=== PATIENT | male | born 1950 | race Caucasian/White ===

== ENCOUNTER → 2018-12-28 09:21 | Outpatient (REF) | payer MEDICARE, SELFPAY | LOC: LAB 09:21 | PROVIDERS: Visit Provider Family Medicine | DX: N39.0 Urinary tract infection, site not specified (principal) | CPT/HCPCS: 87086 ==

== ENCOUNTER → 2019-07-03 12:00 | Outpatient (CLI) | payer MEDICARE, SELFPAY | PROVIDERS: Visit Provider Urology | DX: Z12.5 Encounter for screening for malignant neoplasm of prostate (principal); R82.81 Pyuria | CPT/HCPCS: 36415; 87086; 87088; G0103 ==

== ENCOUNTER → 2019-07-03 14:23 | Outpatient (CLI) | payer MEDICARE, SELFPAY | PROVIDERS: Visit Provider Urology | DX: R82.81 Pyuria (principal); Z12.5 Encounter for screening for malignant neoplasm of prostate | CPT/HCPCS: 36415; 87086; 87088; G0103 ==

== ENCOUNTER 2020-02-10 11:04 | Inpatient (IN) | payer MEDICARE, SELFPAY ==
[2020-02-10] VITALS (12 sets, daily range): BP systolic 105–145; BP diastolic 49–98; PULSE 70–136; RESP 16–24; TEMP 37.2–40.7; O2SAT 90–98; BMI 48.7; BMI 44.1
--- NOTE | 2020-02-10 11:08 | XR_ITS ---
PROCEDURE: XR CHEST PORTABLE CLINICAL HISTORY: syncope COMPARISON: No exams were available for comparison FINDINGS: The cardiomediastinal silhouette and pulmonary vascularity are within normal limits. The lungs are clear without infiltrates, suspicious nodules, or pleural effusions. No acute bony abnormalities. IMPRESSION: No acute findings. Dictated by: Alex Diez MD 02/10/2020 13:00 Electronically signed by Alex Diez MD in [place] 02/10/2020 13:00
--- NOTE | 2020-02-10 11:15 | ECG_ITS ---
APPROVED REPORT Exam: Resting ECG HR:117 bpm ECG Measurements Heart Rate 117 AXES MS 180 P 55 QRSd 88 QRS 70 QT 310 T 78 QTc 432 <Conclusion> Sinus tachycardia Otherwise normal ECG Electronically signed by : Lenard Hahn, 02/14/2020 08:13:01
--- NOTE | 2020-02-10 11:25 | HMH.EDGENADL ---
ED Disposition Clinical Impression: Dehydration, TITO (acute kidney injury), Debility, unspecified, Morbid obesity Fall Qualifiers: Encounter type: initial encounter Qualified Code(s): W19.XXXA - Unspecified fall, initial encounter UTI (urinary tract infection) Qualifiers: Urinary tract infection type: acute cystitis Hematuria presence: with hematuria Qualified Code(s): N30.01 - Acute cystitis with hematuria Disposition: Admitted As Inpatient Condition on Discharge: Fair Referrals: PCP,No [Non-Staff] - Time of Disposition: 14:46 - Critical Care Critical Care Time: No Attestation: On 02/10/20, the high probability of a clinically significant, sudden or life threatening deterioration of the following system(s) required my full and direct attention, intervention and personal management. The time I documented below is in addition to time spent performing reported procedures but includes the following listed in this critical care notation. Medical Decision Making - Medical Records Medical records reviewed: Yes: I reviewed the patient's medical records. - Gurinder Inquiry Pt receiving controlled substance: No Vital Signs: 02/10/20 11:20 02/10/20 11:37 02/10/20 13:14 Temperature 99.5 F Temperature Source Oral Pulse Rate [Radial] 112 H 120 H 70 Respiratory Rate 20 16 Blood Pressure [Right Arm] 126/69 141/87 H 142/75 H Blood Pressure Mean [Right Arm] 88 105 97 Blood Pressure Source [Right Arm] Automatic Cuff Automatic Cuff Automatic Cuff Blood Pressure Position [Right Arm] Sitting Sitting Sitting 02 Sat by Pulse Oximetry 96 98 98 Oxygen Delivery Method Room Air Room Air 02/10/20 14:15 02/10/20 14:32 Temperature Temperature Source Pulse Rate [Radial] 109 H 100 H Respiratory Rate Blood Pressure [Right Arm] 113/98 H 134/49 L Blood Pressure Mean [Right Arm] 103 77 Blood Pressure Source [Right Arm] Automatic Cuff Automatic Cuff Blood Pressure Position [Right Arm] Sitting Sitting 02 Sat by Pulse Oximetry 92 L 93 L Oxygen Delivery Method Room Air Room Air - Lab Data Lab Results 02/10/20 11:10: WBC 18.2 H, RBC 4.28 L, Hgb 12.6 L, Hct 36.8 L, MCV 86.0, MCH 29.5, MCHC 34.3, RDW 13.5, Plt Count 252, MPV 7.8, Neut % (Auto) 89.7 H, Lymph % (Auto) 5.7 L, [place] % (Auto) 4.2, Eos % (Auto) 0.3, Baso % (Auto) 0.1, Neut # (Auto) 16.3 H, Lymph # (Auto) 1.0, [place] # (Auto) 0.8, Eos # (Auto) 0.1, Baso # (Auto) 0.0, Total Counted 100, Neutrophils % (Manual) 92 H, Band Neutrophils % 1.0, Lymphocytes % (Manual) 4 L, Monocytes % (Manual) 3, Platelet Estimate Normal, RBC Morphology Normal 02/10/20 11:10: Sodium 133 L, Potassium 4.4, Chloride 94 L, Carbon Dioxide 27, Anion Gap 16.4 H, BUN 19, Creatinine 1.40 H, Estimated Creat Clear 60, Estimated GFR 51 L, Est GFR ( Amer) 61, Glucose 263 H, Calcium 8.5, Total Bilirubin 1.3, AST 31, ALT 28, Alkaline Phosphatase 104, Total Creatine Kinase 104, Troponin I 0.01, Total Protein 7.2, Albumin 3.6, Globulin 3.6 H, Albumin/Globulin Ratio 1.0 L, Lipase 24 02/10/20 14:09: Urine Color Yellow, Urine Appearance Clear, Urine pH 6.0, Ur Specific [place] >= 1.030, Urine Protein 2+, Urine Glucose (UA) Negative, Urine Ketones 1+, Urine Blood 2+, Urine Nitrate Negative, Urine Bilirubin Negative, Urine Urobilinogen 1.0, Ur Leukocyte Esterase Negative, Urine RBC 5-10, Urine WBC 5-10, Ur Squamous Epith Cells 5-10, Urine Bacteria 2+, Fine Granular Casts 3-5 02/10/20 14:09: Urine Creatinine 286 Result diagrams: 02/10/20 11:10 02/10/20 11:10 Orders (Tests/Meds): ED MEDICATIONS Generic Name Dose Route Start Last Admin Trade Name Freq PRN Reason Stop Dose Admin Ceftriaxone Sodium 2 gm/ 50 mls @ 100 mls/hr 02/10/20 14:45 Sodium Chloride IV 02/24/20 14:44 Q24H ONEL Protocol Discontinued Medications Generic Name Dose Route Start Last Admin Trade Name Freq PRN Reason Stop Dose Admin Famotidine 20 mg 02/10/20 12:01 02/10/20 12:12 Pepcid 20mg Tablet PO 02/10/20 12:0
[2020-02-10 11:26] LABS: Basophils % 0.1 % (0.1-2.0); Eosinophils # 0.1 K/mm3 (0.0-0.4); Eosinophils % 0.3 % (0.1-12.0); Hematocrit 36.8 % (42.0-52.0); Hemoglobin 12.6 g/dL (14.1-18.0); Lymphocytes % 5.7 % (10-50); Mean Corpuscular HGB Conc 34.3 g/dL (31.8-35.4); Mean Corpuscular Hemoglobin 29.5 pg (27.0-31.2); Mean Platelet Volume 7.8 fl (7.4-10.4); Monocytes # 0.8 K/mm3 (0.1-1.0); Monocytes % 4.2 % (1.7-9.3); Neutrophils # 16.3 K/mm3 (1.8-7.8); Neutrophils % 89.7 % (37.0-80.0); Platelet Count 252 K/mm3 (142-424); Red Blood Count 4.28 M/mm3 (4.60-6.20); Red Cell Distribution Width 13.5 % (11.5-17.5); White Blood Count 18.2 K/mm3 (4.8-10.8)
[2020-02-10 11:28] LABS: MANUAL DIFFERENTIAL MANUAL DIFFERENTIAL (MANUAL DIFF)
[2020-02-10 11:36] LABS: Chloride 94 mmol/L (98-107); Potassium 4.4 mmoL/L (3.5-5.1); Sodium 133 mmol/L (136-145)
[2020-02-10 11:39] LABS: Alanine Aminotransferase 28 U/L (12-78); Alkaline Phosphatase 104 U/L (38-126); Anion Gap 16.4 mEq/L (5-15); Aspartate Amino Transferase 31 U/L (17-59); Bilirubin,Total 1.3 mg/dl (0.2-1.3); Blood Urea Nitrogen 19 mg/dl (9-20); Calcium 8.5 mg/dl (8.4-10.2); Carbon Dioxide 27 mmol/L (22.0-30.0); Creatine Kinase 104 U/L (55-170); Creatinine Clearance Estimated 60 mL/min (50-200); Estimated Glomerular Filt Rate 51 ml/min (>60); GFR (African American) 61 ML/MIN (>60); Glucose 263 mg/dl (74-100); Lipase 24 U/L (23-300)
[2020-02-10 11:40] LABS: Albumin Level 3.6 g/dl (3.5-5.0); Globulin 3.6 g/dL (1.3-3.2); Total Protein,Serum 7.2 g/dl (6.3-8.2)
[2020-02-10 11:46] LABS: Lymphocytes % 4 % (10-50); Monocytes % 3 % (2-9); Neutrophils % 92 % (42-76); Total Cells Counted 100
[2020-02-10 11:47] LABS: Platelet Estimate Normal; RBC Morphology Normal
[2020-02-10 11:52] LABS: Troponin I 0.01 ng/ml (0.00-0.034)
--- NOTE | 2020-02-10 12:26 | PC.NURSE ---
Pt keeps removing his own v/s monitors. Will continue to monitor as pt allows.
[2020-02-10 14:14] LABS: Microscopic, Urine URINE MICROSCOPIC (MICROSCOPIC)
[2020-02-10 14:19] LABS: Appearance,Urine CLEAR (Clear); Blood, Urine 2+ (Negative); Color,Urine YELLOW (Yellow); Glucose,Urine (UA) Negative (Negative); Ketones,Urine 1+ (Negative); Leukocyte Esterase,Urine Negative (Negative); Nitrate,Urine Negative (Negative); Protein,Urine 2+ (Negative); Specific Gravity, Urine >= 1.030 (1.005-1.030)
[2020-02-10 14:23] LABS: Bilirubin,Urine Negative (Negative)
[2020-02-10 14:29] LABS: Bacteria,Urine 2+ /lpf
[2020-02-10 14:32] LABS: Creatinine,Urine Random 286 mg/dL (Not Estab.)
--- NOTE | 2020-02-10 14:44 | PC.NURSE ---
calling dr gross office at this time.
--- NOTE | 2020-02-10 14:51 | PC.NURSE ---
dr gross returned call
--- NOTE | 2020-02-10 15:41 | PC.NURSE ---
Report called to BENNY Melara.
--- NOTE | 2020-02-10 16:13 | PC.NURSE ---
Received report from Krupa Reeves RN on pt. Also, called to clarify that MD in ED didn't want a lactic drawn or blood cx, spoke with BENNY Mariano and she stated no MD didn't want at this time. Noted.
--- NOTE | 2020-02-10 16:16 | PC.NURSE ---
Pt arrived to floor at this time via stretcher
[2020-02-10 17:28] LABS: POC Glucose,Bedside 276 (70-110)
[2020-02-10 17:31] LABS: Lactic Acid 2.9 mmol/L (0.7-2.1)
--- NOTE | 2020-02-10 17:45 | HMH.HP ---
*Admission Date: 02/10/20 *Chief complaint: Weakness *History of present illness: 69-year-old male with morbid obesity, uncontrolled diabetes mellitus, hypertension presented to the emergency department after being found down on the floor at home by a friend. Patient reports his illness began on February 06 when he began vomiting. He vomited throughout the day on February 06 and February 07 at which point vomiting ceased. He never developed diarrhea. He had been unable to eat during the entire timeframe and it also includes February 08. Patient was being checked on daily by a friend. The last time she saw him was on February 08. When she came to check on him today she found him down on the floor. Patient had attempted to get out of bed and fallen and was too weak to get up under his own power. Patient was brought to the emergency department. While the patient denies fever and chills his friend supports the idea that he been febrile with chills over the last few days and he was treating himself with hot showers and warm blankets. He denies cough but admits to sinus congestion which is chronic. He admits to urinary frequency. Patient has a history of a urethral stricture and had completed a 10-day course of Cipro for urinary tract infection on February 04. He reports his urine had become clear but he still had dysuria. Work-up in the emergency department revealed an ill-appearing gentleman with an elevated white blood cell count and abnormal urine with gross hematuria on catheterized specimen [facility] History I have reviewed the patient's past medical history: Yes Medical History: Reports:: Diabetes Mellitus Type 2, Hyperlipidemia, Hypertension Denies:: Internal Pacemaker *Have you ever received a pneumonia vaccine?: Yes *Have you received a flu vaccine this season?: Yes Other Surgeries: No: Pacemaker Comment: Right and left knee replacements - *Social History Last grade of school completed: High school graduate Smoking Status: Never smoker Alcohol Intake: never Substance Use Type: denies use *Occupational Status:: retired Housing: house *Travel in the last 8 weeks: None Family Hx:: No significant family history Review of Systems - Review of Systems Review of systems:: pertinent systems reviewed and negative unless documented below - *Neurologic Reports frequent falls, Reports weakness, Denies dizziness, Denies headache(s), Denies memory loss, Denies numbness, Denies tingling, Denies dizziness Meds Home Medications Medication Instructions Recorded Confirmed Type atorvastatin 40 mg tablet 40 mg PO DAILY 07/04/18 02/10/20 History bisoprolol fumarate 10 mg tablet 10 mg PO DAILY 07/04/18 02/10/20 History cyclobenzaprine 10 mg tablet 10 mg PO TID 07/04/18 02/10/20 History insulin lispro 100 unit/mL 10.5 unit SQ QACBREAK 07/04/18 02/10/20 History subcutaneous half-unit pen lisinopril 20 mg tablet 20 mg PO DAILY 07/04/18 02/10/20 History metoprolol succinate 50 mg capsule 50 mg PO DAILY 07/04/18 02/10/20 History sprinkle, ext. release 24 hr Metformin HCl [Metformin 850mg 850 mg PO TID 02/10/20 02/10/20 History Tablet] Allergies Allergy/AdvReac Type Severity Reaction Status Date / Time No Known Allergies Allergy Verified 07/03/19 11:36 Exam Vital signs and Labs for Last 24 Hours: Temp Pulse Resp BP Pulse Ox 105.2 F H 136 H 24 108/71 L 94 L 02/10/20 16:35 02/10/20 16:35 02/10/20 16:35 02/10/20 16:35 02/10/20 16:35 Laboratory Results - last 24 hr 02/10/20 11:10: WBC 18.2 H, RBC 4.28 L, Hgb 12.6 L, Hct 36.8 L, MCV 86.0, MCH 29.5, MCHC 34.3, RDW 13.5, Plt Count 252, MPV 7.8, Neut % (Auto) 89.7 H, Lymph % (Auto) 5.7 L, [place] % (Auto) 4.2, Eos % (Auto) 0.3, Baso % (Auto) 0.1, Neut # (Auto) 16.3 H, Lymph # (Auto) 1.0, [place] # (Auto) 0.8, Eos # (Auto) 0.1, Baso # (Auto) 0.0, Total Counted 100, Neutrophils % (Manual) 92 H, Band Neutrophils % 1.0, Lymphocytes % (Manual) 4 L, Monocytes % (Manual) 3, Platelet Estimate
--- NOTE | 2020-02-10 19:05 | PC.NURSE ---
Did call and speak with Dr. Hahn suction operator for Dr. Ocampo in re to soa, fever of 105.2 in order to see if pt needed to be tested for covid. Dr. Hahn stated not at this time. Noted. Also, Dr. Ocampo rounded this afternoon and this nurse did make him aware that pt had triggered for sepsis, although hasnt been hypotensive. Also, this nurse ordered blood cx, which are pending and lactic ordered as well. Second one will be drawn this evening. CB in reach. Urinal at bedside. Pt is weak and pallor. Will give report to oncoming RN. Temp 102.5 at this time. Cool cloths/ice packs applied to pt and prn tylenol given.
--- NOTE | 2020-02-10 19:54 | PC.NURSE ---
Applied 02 @ 2 L NC r/t low 90 sats.
[2020-02-10 20:29] LABS: POC Glucose,Bedside 261 (70-110)
[2020-02-10 21:23] LABS: Reflex Lactic Add Lactic Reflex
[2020-02-10 21:46] LABS: Lactic Acid Follow Up (RFLX 1) 1.7 mmol/L (0.7-2.1)
--- NOTE | 2020-02-10 23:35 | PC.NURSE ---
PT PLACED ON CPAP PER MD ORDER (JEET). PT WAS FOUND HAVING PERIODS OF APNEA LASTING UP TO 40 SECONDS. PT O2 SAT FROM 95-69% ON 2LNC. PT TOLERATING CPAP WELL, WITH O2 SAT 97%. PT RESTING WITH NO C/O AT THIS TIME. VSS WILL CONTINUE TO MONITOR.
[2020-02-11] VITALS (8 sets, daily range): BP systolic 104–137; BP diastolic 56–80; PULSE 93–114; RESP 17–36; TEMP 36.7–39.9; O2SAT 90–100; BMI 46.0
[2020-02-11 05:44] LABS: POC Glucose,Bedside 199 (70-110)
--- NOTE | 2020-02-11 06:01 | PC.NURSE ---
Addendum entered by Tabby Khan RN 02/11/20 06:31: NO NEW ORDERS RECEIVED AT THIS TIME FROM AGRONOMY ADVISOR JEET HOFFMAN. Original Note: A&OX4. AFTER WEARING CPAP T/O NIGHT, WHICH PT TOLERATED VERY WELL, PT WAS A LOT MORE ALERT THIS MORNING. PT GOT UP ON THE SIDE OF THE BED TO TRY AND URINATE AND TALKED TO ME. PT RECEIVED 3,000ML BOLUS OVER NIGHT. PT HAS REMAINED AFEBRILE THIS SHIFT. PT HAS HAD NO C/O PAIN, SOA, NA/VO THIS SHIFT. PT HAS RESTED WELL T/O SHIFT. PT HAS ONLY HAD 100ML OF URINE OUT THIS SHIFT. AGRONOMY ADVISOR MD NOTIFIED. NO COMPLAINTS THUS FAR, VSS WILL CONTINUE TO MONITOR.
[2020-02-11 07:27] LABS: Basophils % 0.1 % (0.1-2.0); Eosinophils # 0.1 K/mm3 (0.0-0.4); Eosinophils % 0.9 % (0.1-12.0); Hematocrit 32.3 % (42.0-52.0); Lymphocytes # 0.9 K/mm3 (0.7-4.5); Lymphocytes % 8.4 % (10-50); Mean Corpuscular HGB Conc 33.5 g/dL (31.8-35.4); Mean Corpuscular Hemoglobin 28.9 pg (27.0-31.2); Mean Corpuscular Volume 86.3 fl (80-94); Mean Platelet Volume 8.1 fl (7.4-10.4); Monocytes # 0.4 K/mm3 (0.1-1.0); Monocytes % 3.6 % (1.7-9.3); Neutrophils # 9.5 K/mm3 (1.8-7.8); Neutrophils % 86.9 % (37.0-80.0); Platelet Count 167 K/mm3 (142-424); Red Blood Count 3.75 M/mm3 (4.60-6.20); Red Cell Distribution Width 13.7 % (11.5-17.5); White Blood Count 10.9 K/mm3 (4.8-10.8)
[2020-02-11 07:29] LABS: MANUAL DIFFERENTIAL MANUAL DIFFERENTIAL (MANUAL DIFF)
--- NOTE | 2020-02-11 07:33 | HMH.PHAVTE ---
[facility] Pharmacy VTE Monitoring - Patient Demographics Admission date: 02/10/20 Report Date: 02/11/20 Time: 07:33 Allergies/Adverse Reactions: Patient Allergies No Known Allergies Allergy (Verified 07/03/19 11:36) Height: 1.91 m Weight: 168.2 kg Patient Problems: Current Active Problems Dehydration (Acute) TITO (acute kidney injury) (Acute) Debility, unspecified (Acute) Fall (Acute) Morbid obesity (Acute) UTI (urinary tract infection) (Acute) Type 2 diabetes mellitus with hyperglycemia (Acute) Hypertension (Acute) - VTE Risk Labs: VTE Related Lab Results Hgb 12.6 g/dL (14.1-18.0) L 02/10/20 11:10 Hct 32.3 % (42.0-52.0) L 02/11/20 07:13 Plt Count 167 K/mm3 (142-424) D 02/11/20 07:13 BUN 19 mg/dl (9-20) 02/10/20 11:10 Creatinine 1.40 mg/dl (0.66-1.25) H 02/10/20 11:10 Estimated Creat Clear 60 mL/min (50-200) 02/10/20 11:10 Clinical Trial Participant: No - Prophylaxis VTE Prophylaxis Ordered?: Yes Types of VTE Prophylaxis: IPCS Knee High
--- NOTE | 2020-02-11 08:22 | HMH.ACPN2 ---
Internal Medicine - PN: Subj *Date: 02/11/20 *Time: 08:22 Interval history: Patient is without complaints this morning and admits he is feeling better. Yesterday evening when patient was falling asleep he was witnessed having prolonged episodes of apnea estimated at 40 seconds. On-call physician was contacted and patient was placed on CPAP overnight. This morning the patient notes he has a headache. He did not have any further fevers throughout the night. Last documented fever was 102.5 around 6:30 PM Exam Vital signs and Labs for Last 24 Hours: Temp Pulse Resp BP Pulse Ox 98.0 F 98 H 17 120/70 100 02/11/20 03:51 02/11/20 03:51 02/11/20 03:51 02/11/20 03:51 02/11/20 03:51 Laboratory Results - last 24 hr 02/10/20 11:10: WBC 18.2 H, RBC 4.28 L, Hgb 12.6 L, Hct 36.8 L, MCV 86.0, MCH 29.5, MCHC 34.3, RDW 13.5, Plt Count 252, MPV 7.8, Neut % (Auto) 89.7 H, Lymph % (Auto) 5.7 L, [place] % (Auto) 4.2, Eos % (Auto) 0.3, Baso % (Auto) 0.1, Neut # (Auto) 16.3 H, Lymph # (Auto) 1.0, [place] # (Auto) 0.8, Eos # (Auto) 0.1, Baso # (Auto) 0.0, Total Counted 100, Neutrophils % (Manual) 92 H, Band Neutrophils % 1.0, Lymphocytes % (Manual) 4 L, Monocytes % (Manual) 3, Platelet Estimate Normal, RBC Morphology Normal 02/10/20 11:10: Sodium 133 L, Potassium 4.4, Chloride 94 L, Carbon Dioxide 27, Anion Gap 16.4 H, BUN 19, Creatinine 1.40 H, Estimated Creat Clear 60, Estimated GFR 51 L, Est GFR ( Amer) 61, Glucose 263 H, Calcium 8.5, Total Bilirubin 1.3, AST 31, ALT 28, Alkaline Phosphatase 104, Total Creatine Kinase 104, Troponin I 0.01, Total Protein 7.2, Albumin 3.6, Globulin 3.6 H, Albumin/Globulin Ratio 1.0 L, Lipase 24 02/10/20 14:09: Urine Color Yellow, Urine Appearance Clear, Urine pH 6.0, Ur Specific [place] >= 1.030, Urine Protein 2+, Urine Glucose (UA) Negative, Urine Ketones 1+, Urine Blood 2+, Urine Nitrate Negative, Urine Bilirubin Negative, Urine Urobilinogen 1.0, Ur Leukocyte Esterase Negative, Urine RBC 5-10, Urine WBC 5-10, Ur Squamous Epith Cells 5-10, Urine Bacteria 2+, Fine Granular Casts 3-5 02/10/20 14:09: Urine Creatinine 286 02/10/20 16:53: POC Glucose 276 H 02/10/20 17:16: Lactate 2.9 H 02/10/20 20:09: POC Glucose 261 H 02/10/20 21:32: Lactate 1.7 02/11/20 05:32: POC Glucose 199 H 02/11/20 07:13: WBC 10.9 H D, RBC 3.75 L, Hct 32.3 L, MCV 86.3, MCH 28.9, MCHC 33.5, RDW 13.7, Plt Count 167 D, MPV 8.1, Neut % (Auto) 86.9 H, Lymph % (Auto) 8.4 L, [place] % (Auto) 3.6, Eos % (Auto) 0.9, Baso % (Auto) 0.1, Neut # (Auto) 9.5 H, Lymph # (Auto) 0.9, [place] # (Auto) 0.4, Eos # (Auto) 0.1, Baso # (Auto) 0.0 I & O for Last 24 hours: Intake & Output 02/08/20 02/09/20 02/10/20 02/11/20 11:59 11:59 11:59 11:59 Intake Total 4257 / 4257 Output Total 250 / 250 Balance 4007 / 4007 Weight 380 lb 370 lb 13.08 oz Narrative: Patient looks more alert. Lungs remain clear. Heart has a regular rate and rhythm. Abdomen is soft and nontender. Assessment and Plan (1) UTI (urinary tract infection) Current visit: Yes Status: Acute Qualifiers: Urinary tract infection type: acute cystitis Hematuria presence: with hematuria Qualified Code(s): N30.01 - Acute cystitis with hematuria Category: Medical Code(s): N39.0 - Urinary tract infection, site not specified (2) Sepsis Current visit: Yes Status: Suspected Category: Medical Code(s): A41.9 - Sepsis, unspecified organism (3) Type 2 diabetes mellitus with hyperglycemia Current visit: Yes Status: Acute Qualifiers: Diabetes mellitus [employer]modal customer service insulin use: with fci use Qualified Code(s): E11.65 - Type 2 diabetes mellitus with hyperglycemia; Z79.4 - nursing home (current) use of insulin Category: Medical Code(s): E11.65 - Type 2 diabetes mellitus with hyperglycemia (4) Hypertension Current visit: Yes Status: Acute Qualifiers: Hypertension type: essential hypertension Qualified Code(s): I10 - Essential (primary) hypertensi
[2020-02-11 08:23] LABS: Chloride 104 mmol/L (98-107)
[2020-02-11 08:24] LABS: Potassium 4.7 mmoL/L (3.5-5.1); Sodium 134 mmol/L (136-145)
[2020-02-11 08:27] LABS: Anion Gap 14.7 mEq/L (5-15); Blood Urea Nitrogen 26 mg/dl (9-20); Carbon Dioxide 20 mmol/L (22.0-30.0); Creatinine Clearance Estimated 57 mL/min (50-200); Estimated Glomerular Filt Rate 47 ml/min (>60); GFR (African American) 56 ML/MIN (>60); Glucose 184 mg/dl (74-100)
[2020-02-11 08:39] LABS: Calcium 7.1 mg/dl (8.4-10.2)
[2020-02-11 08:40] LABS: Lymphocytes % 7 % (10-50); Monocytes % 2 % (2-9); Neutrophils % 91 % (42-76); Platelet Estimate Normal; RBC Morphology Normal; Total Cells Counted 100
--- NOTE | 2020-02-11 09:07 | HMH.PTEV ---
Physical Therapy Evaluation Rehab PT IP Evaluation Start: 02/11/20 08:20 Freq: ONCE Status: Active Protocol: Document 02/11/20 09:01 HILDA (Rec: 02/11/20 09:06 PHOAMY [id number]) Subjective/History History History 69 yowm adm to [facility] with generalized weakness, after N/ V episode this weekend. He reports he is independent using a w/c for all mobility at home. Subjective Subjective Pt with no c/o this am. Rehab PT IP Eval Objective Appearance Patient Behavior Appropriate Patient Orientation Person,Place,Time Difficulty following instructions none Speech Pattern Clear Ambulation Patient Able to Ambulate No Balance Ability to Arise Able, uses arms to help Sitting Balance Steady, safe Standing Balance Steady, wide stance Dynamic Sitting Balance Ability Good Dynamic Standing Balance Ability Fair Transfers Bed Transfer Ability Minimal x 1 (25% assist) Chair Transfer Ability Minimal x 1 (25% assist) Sit to Stand Bed Transfer Ability Minimal x 1 (25% assist) Sit to Stand Chair Transfer Ability Minimal x 1 (25% assist) ROM All Extremities PT ROM Status WFL MMT All Extremities PT MMT WFL Rehab PT IP prob,goals,plan Problems Date of Evaluation: 02/11/20 PT IP Problems Bed Mobility,Transfers Rehab Potential Rehab Potential Good Plan PT Intervention Plan Bed Mobility,Transfers, Therapeutic Exercise PT Plan Frequency BID Duration LOS Discharge Goals Bed Transfer Ability Contact Guard/Hand Hold Sit to Stand Chair Transfer Ability Contact Guard/Hand Hold Discharge Plan PT Discharge Plan Pt is appropriate to return home once medically stable as he can transfer safely to bedside chair from bed, which is his baseline. G -code Required No Eval Complexity Eval Charge Codes 08041 - Moderate Complexity PHYSICIAN CERTIFICATION: I certify the specified therapy services for Bry Clark are required, authorized, and reviewed every 30 days.
[2020-02-11 09:41] LABS: Hemoglobin 10.8 g/dL (14.1-18.0)
--- NOTE | 2020-02-11 10:20 | HMH.OTEV ---
OT Inpatient Evaluation Rehab OT IP Evaluation Start: 02/11/20 08:20 Freq: ONCE Status: Complete Protocol: Document 02/11/20 10:09 ABE (Rec: 02/11/20 10:19 ABE [id number]) Rehab OT IP Assessment Subjective History 69 year old male admitted to [facility] on 02/10/20 after found on the floor by neighboors and brought in by EMS. Findings UTI and Sepsis. Patient stated to live alone in 1 story double wide with ramp to enter . Patient stated abiltiy to transfer chair to chair Mod I and propelled in wheelchair to maneuver Mod I. Patient reported hx of falling at home . Patient stated to complete all ADLs Mod I with w/c, shower chair and RW. Subjective I m just tired. Objective Patient Orientation Person,Place,Time,Name,Age, Birthday,Day of Month,Month, Year Upper Extremity Gross ROM WNL Transfer Training Sit/Stand Transfer Assist Level Moderate x 1 (50% assist) Chair Transfer Ability Moderate x 1 (50% assist) Chair Transfer Technique Sit to/from Ambulatory Chair Transfer Assistive Devices Standard Walker Feeding Ability Independent Lower Body Dressing Ability Assistance X1 Upper Body Dressing Ability Assistance X1 Bathing Ability Assistance x1 Performing Toilet Hygiene Ability Assistance X1 Overall Commode/Toilet Transfer Ability Assistance x1 Commode/Toilet Transfer Technique Stand Step Pivot Commode/Toilet Transfer Assistive 3-in-1 Commode Devices Rehab OT IP prob,goals,plan Problems Date of Evaluation: 02/11/20 OT IP Problems Bed Mobility,Transfers,Balance ,Self care,Safety Rehab Potential Rehab Potential Good Equipment Needs Assistive Devices Standard Walker,Wheelchair Plan OT intervention Plan Bed Mobility,Transfers,Balance ,Self care,Safety,Therapeutic Exercise OT Plan Frequency Daily Duration LOS Discharge Goals Bed Mobility Ability Independent Sit to Stand Chair Transfer Ability Supervision/Stand by Chair Transfer Ability Supervision/Stand by Chair Transfer Technique Stand Step Pivot Chair Transfer Assistive Devices Rolling Walker Self care skills
[2020-02-11 11:36] LABS: POC Glucose,Bedside 249 (70-110)
--- NOTE | 2020-02-11 13:15 | SW/DCPLANNER ---
PATIENT PRESENTED INTO THE HOSPITAL WITH DEHYDRATION AND UTI......PATIENT IS FROM HOME AND IS POSSIBLY GOING TO NEED SOME AFTERCARE... CM WILL BE AVAILABLE TO ASSIST WITH ANY NEEDS OR ORDERS DEEMED BY MD. DISPOSITION UNCERTAIN AT THIS TIME...
[2020-02-11 17:26] LABS: POC Glucose,Bedside 249 (70-110)
[2020-02-11 17:26] LABS: POC Glucose,Bedside 227 (70-110)
--- NOTE | 2020-02-11 18:31 | PC.NURSE ---
Pt alert and oriented and able to make needs known. Pt is up to chair at this time. RR even and unlabored. No complaints at this time. Last fs 249 and ssi given. Pt has worn cpap x 1 today for short time. CB in reach. Fluids infusing as ordered. Lungs clear. Has used urinal this shift. Urine still dark and foul odor. Have encouraged po fluids. Will cont to mx. VSS.
--- NOTE | 2020-02-11 19:10 | PC.NURSE ---
report given to nunu
[2020-02-11 19:13] LABS: POC Glucose,Bedside 226 (70-110)
--- NOTE | 2020-02-11 21:10 | PC.NURSE ---
Patient been confused and restless pulling at IV lines, skin hot to touch, resp rapid. Dr. Adams at bed side. Order for meds and restraints given.
--- NOTE | 2020-02-11 21:15 | PC.NURSE ---
Soft wrist restraints applied. staff at bedside. One on One care initiated at this time.
--- NOTE | 2020-02-11 21:28 | PC.NURSE ---
Addendum entered by Skyler Sanchez RN 02/11/20 21:44: Also checked random glucose and it was 226. Original Note: At approx 1840 when checking on pt he was shivering and stating he was cold and pallor noted. RR elevated as well. Tech obtained temp orally and it read WNL. Pt felt warm to the touch so this nurse checked again and it was 99.6 orally. This nurse checked rectal temp and it was 103.8. PRN tylenol given and MD director communications for [place] was notified - Dr. nichols. He gave new orders for urine cx, blood cx x 2, invanz 1 gm now and 0.5 mg ativan now. This nurse gave ativan 0.5 mg IV at 1954, invanz 1 gm IV at 1999. Ativan was given because pt was becoming combative and disoriented, pulling IVs and throwing objects. HR elevated, BP stable and RR labored. Also, called [facility] and had them come and see pt and apply cpap. PT wouldn't leave cpap on. applied 2 L. sats 89-93%. Dr. Nichols notified again when fever still elevated, labored breathing continued and confusion as well. Dr. Nichols is at bedside at this time at 2136. Have given report to Ahsan Bush RN whom is at bedside as well at this time, along with charge and house.
[2020-02-11 22:40] LABS: POC Glucose,Bedside 219 (70-110)
--- NOTE | 2020-02-11 23:15 | PC.NURSE ---
Alert, oriented to name. restlessness.Staff at bedside, easily redirected. restraints removed.
[2020-02-12] VITALS (16 sets, daily range): BP systolic 80–138; BP diastolic 50–89; PULSE 76–104; RESP 24–52; TEMP 36.7–39.5; O2SAT 91–98; BMI 46.3
[2020-02-12 01:24] LABS: Microscopic, Urine URINE MICROSCOPIC (MICROSCOPIC)
--- NOTE | 2020-02-12 01:28 | PC.NURSE ---
UPON RECEIVING REPORT, THIS NURSE, ALONG WITH DAY SHIFT NURSE RN Lakeisha HUITRON, FIND THAT PT HAS AN INCREASE IN TEMP AND CHANGE IN MENTAL STATUS. PT IS UNABLE TO STATE HIS NAME, BIRTHDAY, AND LOCATION UPON ROUNDING AT 1900. PT TEMP 103.8, TACH[place] NOTED, PT BECAME VERY ANXIOUS AND COMBATIVE, THROWING THINGS AND TRYING TO RIP OUT IV LINES, ETC. A ELANA RN PAGED TAPPER BALANCE WHEEL SCREW HOLE MD STANTON TO UPDATE ON PT SITUATION. MD GAVE ORDERS FOR ATIVAN, INVANZ X1, AND TYLENOL SUPP Q4H PRN. F/C WAS ALSO INSERTED AT THIS TIME. URINE SPECIMEN AND BLOOD CULTURES HAVE BEEN COLLECTED. MD STANTON ADVISED FOR RESTRAINTS TO BE APPLIED TO PT IN ORDER TO KEEP PT AND STAFF SAFE. WHILE RESTRAINTS ON, PULSES IN UPPER EXTREMITIES +2, SKIN WARM AND PINK. RESTRAINTS APPLIED FOR APPROX 30 MINS. STAFF AT BEDSIDE. RESTRAINTS REMOVED WHEN PT BECAME CALM, STAFF MEMBER CONTINUE TO BE AT BEDSIDE T/O SHIFT. THIS NURSE REASSESSED PT V/S AT 0030. TEMP 103.1 RECTALLY, AFTER GIVING TYLENOL SUPP AT 2330, RR 36, HR 104, AND BP 80/50 MANUALLY. PT CONTINUES TO BE UNABLE TO ANSWER QUESTIONS APPROPRIATELY. THIS NURSE PAGED TAPPER BALANCE WHEEL SCREW HOLE MD STANTON AND UPDADTED OF PT RECENT V/S. ORDER OF 500ML BOLUS GIVEN. BOLUS ADMINISTERED AT THIS TIME. PT CONTINUES TO BE RESTLESS AND CONFUSED. PT HAS REMAINED ON 2LNC T/O THIS SHIFT, NOT TOLERATING CPAP. O2 SAT HAVE STAYED IN MID 90S. STAFF CONTINUE TO BE AT BEDSIDE. PT HAS NO C/O. WILL CONTINUE TO MONITOR VS, AND ADMINISTER TYLENOL PER SEP. ICE PACKS APPLIED FOR FEVER WELL.
[2020-02-12 01:31] LABS: Appearance,Urine CLEAR (Clear); Bilirubin,Urine Negative (Negative); Blood, Urine 2+ (Negative); Glucose,Urine (UA) Negative (Negative); Ketones,Urine Negative (Negative); Leukocyte Esterase,Urine Negative (Negative); Nitrate,Urine Negative (Negative); PH,Urine 5.5 (5.0-8.5); Protein,Urine 2+ (Negative); Specific Gravity, Urine 1.025 (1.005-1.030)
[2020-02-12 01:34] LABS: Color,Urine Dark Yellow (Yellow)
[2020-02-12 01:42] LABS: WBC,Urine Occasional #/hpf (0-3)
[2020-02-12 01:43] LABS: Amorphous Sediment,Urine 1+ /lpf; Bacteria,Urine Trace /lpf; RBC,Urine Occasional #/hpf (0-3); Squamous Epithelial Cell,Urine Occasional #/hpf (0-5)
--- NOTE | 2020-02-12 01:51 | PC.NURSE ---
Pt will not tolerate cpap.
--- NOTE | 2020-02-12 04:14 | PC.NURSE ---
PT V/S AT 0348: TEMP 100.9 RECTAL, RR 40, HR 94, BP 85/50 MANUALLY. PT CONTINUES TO BE UNAWARE OF SURROUNDINGS AND UNABLE TO ANSWER QUESTIONS. PT SLEEPING AT THIS TIME, TACHYPNEA NOTED. PT O2 SAT 97% ON 2LNC. BED SAFETY APPLIED. TYLENOL ADMINISTERED PER SEP. WILL CONTINUE TO MONITOR PT.
[2020-02-12 05:32] LABS: POC Glucose,Bedside 138 (70-110)
[2020-02-12 06:20] LABS: Basophils % 0.2 % (0.1-2.0); Eosinophils # 0.1 K/mm3 (0.0-0.4); Eosinophils % 0.4 % (0.1-12.0); Hematocrit 32.3 % (42.0-52.0); Hemoglobin 10.8 g/dL (14.1-18.0); Lymphocytes % 6.2 % (10-50); Mean Corpuscular HGB Conc 33.5 g/dL (31.8-35.4); Mean Corpuscular Hemoglobin 29.3 pg (27.0-31.2); Mean Corpuscular Volume 87.5 fl (80-94); Mean Platelet Volume 9.3 fl (7.4-10.4); Monocytes # 0.6 K/mm3 (0.1-1.0); Monocytes % 3.4 % (1.7-9.3); Neutrophils # 14.5 K/mm3 (1.8-7.8); Neutrophils % 89.8 % (37.0-80.0); Platelet Count 125 K/mm3 (142-424); Red Blood Count 3.69 M/mm3 (4.60-6.20); Red Cell Distribution Width 13.9 % (11.5-17.5); White Blood Count 16.2 K/mm3 (4.8-10.8)
[2020-02-12 06:22] LABS: MANUAL DIFFERENTIAL MANUAL DIFFERENTIAL (MANUAL DIFF)
[2020-02-12 06:36] LABS: Chloride 105 mmol/L (98-107); Sodium 137 mmol/L (136-145)
[2020-02-12 06:37] LABS: Potassium 3.7 mmoL/L (3.5-5.1)
[2020-02-12 06:39] LABS: Blood Urea Nitrogen 35 mg/dl (9-20); Creatinine Clearance Estimated 37 mL/min (50-200); Estimated Glomerular Filt Rate 29 ml/min (>60); GFR (African American) 34 ML/MIN (>60)
[2020-02-12 06:40] LABS: Anion Gap 15.7 mEq/L (5-15); Calcium 7.5 mg/dl (8.4-10.2); Carbon Dioxide 20 mmol/L (22.0-30.0); Glucose 145 mg/dl (74-100)
[2020-02-12 07:33] LABS: Eosinophils % 1 % (0-3); Lymphocytes % 9 % (10-50); Monocytes % 4 % (2-9); Neutrophils % 83 % (42-76); Total Cells Counted 100
[2020-02-12 07:34] LABS: Platelet Estimate Normal; RBC Morphology Normal
--- NOTE | 2020-02-12 07:41 | HMH.ACPN2 ---
Internal Medicine - PN: Subj *Date: 02/12/20 *Time: 07:41 Interval history: Patient's condition deteriorated yesterday evening to the night. He had recurrence of high fevers and became hypotensive. He was given fluid boluses. He developed some mental status changes and became disoriented as well. IV antibiotics were switched from Rocephin to Invanz. This morning the patient does not recall the events of the night. He knows that his condition has worsened. He is oriented to date this morning. Exam Vital signs and Labs for Last 24 Hours: Temp Pulse Resp BP Pulse Ox 101.2 F H 94 H 40 H 100/50 L 97 02/12/20 05:53 02/12/20 03:48 02/12/20 03:48 02/12/20 06:46 02/12/20 03:48 Laboratory Results - last 24 hr 02/11/20 07:13: Hgb 10.8 L D, Total Counted 100, Neutrophils % (Manual) 91 H, Lymphocytes % (Manual) 7 L, Monocytes % (Manual) 2, Platelet Estimate Normal, RBC Morphology Normal 02/11/20 07:13: Sodium 134 L, Potassium 4.7, Chloride 104, Carbon Dioxide 20 L D, Anion Gap 14.7, BUN 26 H D, Creatinine 1.50 H, Estimated Creat Clear 57, Estimated GFR 47 L, Est GFR ( Amer) 56 L, Glucose 184 H D, Calcium 7.1 L D 02/11/20 11:25: POC Glucose 249 H 02/11/20 15:31: POC Glucose 227 H 02/11/20 17:04: POC Glucose 249 H 02/11/20 19:04: POC Glucose 226 H 02/11/20 21:47: POC Glucose 219 H 02/12/20 00:00: Urine Color Dark yellow, Urine Appearance Clear, Urine pH 5.5, Ur Specific [place] 1.025, Urine Protein 2+, Urine Glucose (UA) Negative, Urine Ketones Negative, Urine Blood 2+, Urine Nitrate Negative, Urine Bilirubin Negative, Urine Urobilinogen 2.0, Ur Leukocyte Esterase Negative, Urine RBC Occasional, Urine WBC Occasional, Ur Squamous Epith Cells Occasional, Amorphous Sediment 1+, Urine Bacteria Trace 02/12/20 05:22: POC Glucose 138 H 02/12/20 05:39: WBC 16.2 H D, RBC 3.69 L, Hgb 10.8 L, Hct 32.3 L, MCV 87.5, MCH 29.3, MCHC 33.5, RDW 13.9, Plt Count 125 L D, MPV 9.3, Neut % (Auto) 89.8 H, Lymph % (Auto) 6.2 L, [place] % (Auto) 3.4, Eos % (Auto) 0.4, Baso % (Auto) 0.2, Neut # (Auto) 14.5 H, Lymph # (Auto) 1.0, [place] # (Auto) 0.6, Eos # (Auto) 0.1, Baso # (Auto) 0.0, Total Counted 100, Neutrophils % (Manual) 83 H, Band Neutrophils % 3.0, Lymphocytes % (Manual) 9 L, Monocytes % (Manual) 4, Eosinophils % (Manual) 1, Platelet Estimate Normal, RBC Morphology Normal 02/12/20 05:39: Sodium 137, Potassium 3.7 D, Chloride 105, Carbon Dioxide 20 L, Anion Gap 15.7 H, BUN 35 H D, Creatinine 2.30 H D, Estimated Creat Clear 37, Estimated GFR 29 L, Est GFR ( Amer) 34 L D, Glucose 145 H D, Calcium 7.5 L I & O for Last 24 hours: Intake & Output 02/09/20 02/10/20 02/11/20 02/12/20 11:59 11:59 11:59 11:59 Intake Total 4497 / 4497 4207 / 4207 Output Total 450 / 450 1100 / 1100 Balance 4047 / 4047 3107 / 3107 Weight 380 lb 370 lb 13.08 oz 372 lb 5.772 oz Microbiology Reports for the Last 24 Hours: Microbiology 02/10/20 14:09 Urine,Catheterized Urine Culture - Preliminary NO GROWTH AFTER 24 HOURS Narrative: Patient is ill-appearing. Voice is weak. Speech is difficult to understand due to his dry mouth. Lungs remain clear. Heart has a regular rate and rhythm. Abdomen is obese and soft. Extremities have no edema. Assessment and Plan (1) Sepsis Current visit: Yes Status: Suspected Category: Medical Code(s): A41.9 - Sepsis, unspecified organism Await blood cultures drawn on admission. Repeat set was drawn yesterday evening. Continue IV Invanz. (2) UTI (urinary tract infection) Current visit: Yes Status: Acute Qualifiers: Urinary tract infection type: acute cystitis Hematuria presence: with hematuria Qualified Code(s): N30.01 - Acute cystitis with hematuria Category: Medical Code(s): N39.0 - Urinary tract infection, site not specified Urine culture is negative. Continue IV Invanz at this time. (3) Type 2 diabetes mellitus with hyperglycemia Current visit: Yes
--- NOTE | 2020-02-12 08:13 | XR_ITS ---
PROCEDURE: XR CHEST PORTABLE CLINICAL INDICATION: RESP DECLINE COMPARISON: XR CHEST PORTABLE from 02/10/2020 FINDINGS: This exam is very limited technically with rotation poor inspiration and areas under and over penetration. There is cardiomegaly. No obvious lobar consolidation or collapse. IMPRESSION: Limited exam with cardiomegaly Dictated by: Alex Diez MD 02/12/2020 10:25 Electronically signed by Alex Diez MD in [facility] 02/12/2020 10:25
[2020-02-12 08:30] LABS: Adenovirus,PCR Not Detected (NotDetected); Bordetella Pertussis Not Detected (NotDetected); Chlamydophila Pneumoniae, PCR Not Detected (NotDetected); Coronavirus 19, PCR Not Detected (NotDetected); Coronavirus 229E Not Detected (NotDetected); Coronavirus NL63 Not Detected (NotDetected); Coronavirus OC43 Not Detected (NotDetected); Coronovirus HKU1,PCR Not Detected (NotDetected); Human Metapneumovirus Not Detected (NotDetected); Influenza A, PCR Not Detected (NotDetected); Influenza AH1, 2009 Not Detected (NotDetected); Influenza AH1, PCR Not Detected (NotDetected); Influenza AH3,PCR Not Detected (NotDetected); Influenza B, PCR Not Detected (NotDetected); Mycoplasma Pneumoniae, PCR Not Detected (NotDected); Parainfluenza 1, PCR Not Detected (NotDetected); Parainfluenza 2, PCR Not Detected (NotDetected); Parainfluenza 3, PCR Not Detected (NotDetected); Parainfluenza 4, PCR Not Detected (NotDetected); Respiratory Syncytial Virus Not Detected (NotDetected); Rhinovirus/Enterovirus Not Detected (NotDetected)
--- NOTE | 2020-02-12 15:50 | PC.NURSE ---
PATIENT HAS BEEN RESTING IN BED T/O THIS SHIFT. HE APPEARS BETTER THIS AFTERNOON ALTHOUGH HE IS STILL BREATHING FAST AND SHALLOW (APPROX 35 RR) HE IS EASILY AROUSED AND A&OX3 ONCE HE WAKES UP. HE HAD A BED BATH TODAY. GAVE 1L BOLUS PER SEP FOR DECREASING BLOOD PRESSURE. PATIENT DENIES PAIN WHEN AWAKE AND HAS REMAINED AFEBRILE THIS SHIFT. CALL LIGHT WITHIN REACH. WILL CONTINUE TO MONITOR
[2020-02-12 17:11] LABS: POC Glucose,Bedside 234 (70-110)
[2020-02-12 17:11] LABS: POC Glucose,Bedside 234 (70-110)
--- NOTE | 2020-02-12 20:16 | PC.NURSE ---
Pt had his O2 off. O2 sat at rest on room air = 91%.
[2020-02-12 22:31] LABS: POC Glucose,Bedside 178 (70-110)
--- NOTE | 2020-02-12 22:42 | PC.NURSE ---
RT placed pt on cpap at 2219. Pt pulled cpap off at 2234. Pt placed back on O2.
[2020-02-13] VITALS (15 sets, daily range): BP systolic 94–154; BP diastolic 52–92; PULSE 81–108; RESP 16–42; TEMP 36.4–39.1; O2SAT 80–98; BMI 45.3
--- NOTE | 2020-02-13 01:09 | XR_ITS ---
PROCEDURE: XR CHEST PORTABLE CLINICAL HISTORY: dyspnea COMPARISON: XR CHEST PORTABLE from 02/10/2020 XR CHEST PORTABLE from 02/12/2020 FINDINGS: There is cardiomegaly with pulmonary venous congestion and interstitial edema consistent with CHF which has developed since the previous exam. Increased markings are present in the right infrahilar region may be due to underlying edema or pneumonia. No acute bony abnormalities. IMPRESSION: Congestive heart failure with pneumonia or edema in the right lower lung zone Dictated by: Alex Diez MD 02/13/2020 07:34 Electronically signed by Alex Diez MD in [facility] 02/13/2020 07:34
[2020-02-13 01:45] LABS: ABG Base Excess -5.8 mmol/L (-2.4-2.3); ABG HCO3 19.2 mmhg (22.0-26.0); ABG Oxygen Saturation 93 % (90-100); ABG PCO2 32.7 mmhg (35.0-45.0); ABG PH 7.39 mmol/L (7.35-7.45); ABG PO2 66.5 mmhg (80-100); ABG TCO2 20.2 mmhg (23-27)
[2020-02-13 01:46] LABS: Allen's Test Patient Unable; Source Right Radial
[2020-02-13 01:47] LABS: Vent Rate 16
[2020-02-13 02:23] LABS: Alanine Aminotransferase 67 U/L (12-78); Albumin Level 2.9 g/dl (3.5-5.0); Albumin/Globulin Ratio 0.8 (1.1-1.8); Alkaline Phosphatase 269 U/L (38-126); Anion Gap 16.3 mEq/L (5-15); Aspartate Amino Transferase 113 U/L (17-59); Blood Urea Nitrogen 39 mg/dl (9-20); Calcium 7.4 mg/dl (8.4-10.2); Carbon Dioxide 19 mmol/L (22.0-30.0); Chloride 106 mmol/L (98-107); Creatinine Clearance Estimated 48 mL/min (50-200); Estimated Glomerular Filt Rate 38 ml/min (>60); GFR (African American) 46 ML/MIN (>60); Globulin 3.6 g/dL (1.3-3.2); Glucose 202 mg/dl (74-100); Magnesium 1.2 mg/dl (1.6-2.3); Potassium 4.3 mmoL/L (3.5-5.1); Sodium 137 mmol/L (136-145); Total Protein,Serum 6.5 g/dl (6.3-8.2)
[2020-02-13 02:33] LABS: NT Pro Brain Natriuretic Pep. 5560 pg/mL (0-125)
--- NOTE | 2020-02-13 05:28 | PC.NURSE ---
A&O TO NAME, BIRTHDAY, AND PLACE BUT WAS DISORIENTED AT TIMES. TACHYPNEA NOTED THROUGHOUT SHIFT. PT HAS HAD EPISODES OF AGITATION AND LETHARGY THIS SHIFT. WHEEZING NOTED BILATERALLY THROUGHOUT LUNGS. NO COUGH NOTED. PT HAS PULLED OFF BIPAP AND OXYGEN SEVERAL TIMES THROUGHOUT SHIFT. STAFF EXPLAINED IMPORTANCE OF KEEPING IT ON TO HELP HIS RESPIATORY EFFORT TO HELP MAINTAIN NORMAL O2 SAT. PT IS CURRENTLY ON BIPAP AND COMPLYING. GENERALIZED EDEMA NOTED THROUGHOUT. PT SPIKED A FEVER AND WAS ADMINISTERED TYLENOL 650MG. PT HAS RECEIVED IBUPROFEN ONCE AND ANOTHER DOSE OF TYLENOL TO TRY TO DECREASE HIS FEVER. FAN IN ROOM TO COOL PATIENT OFF AND A SHEET ON PATIENT. BED ALARM ON THROUGHOUT SHIFT TO PROMOTE SAFETY. KOHLI CATH IN PLACE WITH YELLOW URINE WITH SEDIMENT FLOWING FREELY INTO DRAINAGE BAG. NO KINKS NOTED. PT MOVES INDEPENDENTLY IN BED. ACTIVE BOWEL SOUNDS HEARD IN ALL 4 QUADRANTS. SOFT AND NONTENDER ABDOMEN. PT HAS REMAINED ON CONTINUOUS PULSE OX THROUGHOUT SHIFT. PT IS CURRENTLY RESTING BETTER. BED IN LOWEST POSITION. CALL LIGHT WITHIN REACH. VSS. NO CONCERNS AT THIS TIME. WILL CONTINUE TO MONITOR.
[2020-02-13 06:26] LABS: Basophils % 0.1 % (0.1-2.0); Eosinophils # 0.1 K/mm3 (0.0-0.4); Eosinophils % 0.8 % (0.1-12.0); Hematocrit 28.9 % (42.0-52.0); Hemoglobin 9.6 g/dL (14.1-18.0); Lymphocytes # 1.2 K/mm3 (0.7-4.5); Lymphocytes % 9.4 % (10-50); Mean Corpuscular HGB Conc 33.2 g/dL (31.8-35.4); Mean Corpuscular Volume 87.2 fl (80-94); Monocytes # 0.4 K/mm3 (0.1-1.0); Monocytes % 3.4 % (1.7-9.3); Neutrophils # 10.8 K/mm3 (1.8-7.8); Neutrophils % 86.3 % (37.0-80.0); Platelet Count 150 K/mm3 (142-424); Red Blood Count 3.32 M/mm3 (4.60-6.20); Red Cell Distribution Width 14.2 % (11.5-17.5); White Blood Count 12.6 K/mm3 (4.8-10.8)
[2020-02-13 06:38] LABS: Chloride 106 mmol/L (98-107)
[2020-02-13 06:39] LABS: MANUAL DIFFERENTIAL MANUAL DIFFERENTIAL (MANUAL DIFF); Potassium 3.5 mmoL/L (3.5-5.1); Sodium 136 mmol/L (136-145)
[2020-02-13 06:41] LABS: Blood Urea Nitrogen 41 mg/dl (9-20); Creatinine Clearance Estimated 50 mL/min (50-200); Estimated Glomerular Filt Rate 40 ml/min (>60); GFR (African American) 49 ML/MIN (>60)
[2020-02-13 06:42] LABS: Anion Gap 12.5 mEq/L (5-15); Calcium 7.3 mg/dl (8.4-10.2); Carbon Dioxide 21 mmol/L (22.0-30.0); Glucose 194 mg/dl (74-100)
[2020-02-13 06:51] LABS: POC Glucose,Bedside 183 (70-110)
--- NOTE | 2020-02-13 07:04 | CA_ITS ---
APPROVED REPORT EXAM: Comprehensive 2D, Doppler, and color-flow Echocardiogram Pump And Blower Operator: Tere Ortiz RT(R) Ht: 6 ft 3 in Wt: 364lbs BSA: 2.83 BP: 108/71 mmHg Indications: HTN, DM, obesity 2D Dimensions LVOT 1.92 cm (M/F) 1.5-2.5 M-Mode Dimensions RVDd 2.49 cm (0.9-2.6) LVDd 4.65 cm (3.5-5.7) LVDs 3.43 cm (3.5-5.7) IVSd 1.88 cm (0.6-1.1) PWd 1.13 cm (0.6-1.1) EF (Teich) 51.40% FS 26.20% EDV (Teich) 99.80 mL ESV (Teich) 48.50 mL LV Diastology E/A Ratio 2.30 Mitral Valve MV A Velocity 49.00 (40-130 cm/s) Left Ventricle Left atrium is mildly enlarged, left ventricle is normal size, mild concentric left ventricular hypertrophy, visually estimated ejection fraction 55% with no regional wall motion abnormality, diastolic parameters are inconclusive. Right Ventricle Right atrium and right ventricular normal size and contractility. Aortic Valve Aortic valve is minimally thickened and fibrosed. There is no aortic stenosis or aortic insufficiency. Mitral Valve Mitral valve is grossly normal, there is mild mitral regurgitation. Tricuspid Valve Tricuspid valve is grossly normal, there is mild tricuspid regurgitation, tricuspid regurgitation jet velocity is inadequate for calculation of the right ventricular systolic pressure. Pulmonic Valve Pulmonic valve is poorly visualized. Great Vessels Aortic root is normal size. Pericardium No significant pericardial effusion noted. Conclusion 1. Technically difficult study because of the patient factors and poor acoustic windows 2. Mildly enlarged left atrium, normal left ventricular size, visually estimated ejection fraction 55% with no regional wall motion abnormality, diastolic parameters are inconclusive. 3. Mild mitral and tricuspid regurgitation. 4. No significant pericardial effusion noted. Electronically signed by : Luis Angel Drake, 02/13/2020 14:45:14
--- NOTE | 2020-02-13 07:30 | HMH.ACPN2 ---
Internal Medicine - PN: Subj *Date: 02/13/20 *Time: 07:30 Interval history: Patient did okay during the day yesterday. Patient was showing signs of volume overload and was given Lasix 60 mg IV once yesterday evening. Patient had sufficient response to the Lasix. Beginning around 10 PM patient began developing fevers again and with his fevers came confusion and some worsening hypoxia. On-call physician was contacted and labs were ordered. Labs did show improvement in patient's renal function along with mild elevation of liver functions. Patient denies shortness of breath this morning despite requiring some supplemental oxygen. He reports some mild abdominal pain. Patient did have loose stools yesterday. Repeat chest x-ray overnight shows patient to be volume overloaded. He continues to also complain of a periodic sinus headache relieved with Sudafed. Exam Vital signs and Labs for Last 24 Hours: Temp Pulse Resp BP Pulse Ox 100.9 F H 88 28 H 94/52 L 98 02/13/20 04:07 02/13/20 06:50 02/13/20 07:23 02/13/20 07:02 02/13/20 06:50 Laboratory Results - last 24 hr 02/12/20 05:39: Total Counted 100, Neutrophils % (Manual) 83 H, Band Neutrophils % 3.0, Lymphocytes % (Manual) 9 L, Monocytes % (Manual) 4, Eosinophils % (Manual) 1, Platelet Estimate Normal, RBC Morphology Normal 02/12/20 08:25: Chlamy pneumoniae PCR Not detected, Adenovirus (PCR) Not detected, B. pertussis DNA (PCR) Not detected, Coronavirus OC43 (PCR) Not detected, Coronavirus HKU1 (PCR) Not detected, Coronavirus 229E (PCR) Not detected, COVID-19 PCR Not detected, Coronavirus NL63 (PCR) Not detected, Human Metapneumovir PCR Not detected, Influenza A (H1) PCR Not detected, Influ A (H1N1/09) PCR Not detected, Influenza A (H3) PCR Not detected, Influenza Type A (PCR) Not detected, Influenza Type B (PCR) Not detected, M. pneumoniae (PCR) Not detected, Parainfluenza 1 (PCR) Not detected, Parainfluenza 2 (PCR) Not detected, Parainfluenza 3 (PCR) Not detected, Parainfluenza 4 (PCR) Not detected, RSV (PCR) Not detected, Entero/Rhino (PCR) Not detected 02/12/20 11:37: POC Glucose 234 H 02/12/20 16:53: POC Glucose 234 H 02/12/20 21:49: POC Glucose 178 H 02/13/20 01:42: Specimen Source Right radial, O2 % 40% i-16 e-6, ABG pH 7.39, ABG pCO2 32.7 L, ABG pO2 66.5 L, ABG HCO3 19.2 L, ABG Total CO2 20.2 L, ABG O2 Saturation 93, ABG Base Excess -5.8 L, Alex Test Patient unable, Vent Rate 16 02/13/20 01:51: Sodium 137, Potassium 4.3, Chloride 106, Carbon Dioxide 19 L, Anion Gap 16.3 H, BUN 39 H, Creatinine 1.80 H D, Estimated Creat Clear 48, Estimated GFR 38 L, Est GFR ( Amer) 46 L D, Glucose 202 H D, Calcium 7.4 L, Magnesium 1.2 L, Total Bilirubin 1.0, AST 113 H D, ALT 67 D, Alkaline Phosphatase 269 H, NT-Pro-B Natriuret Pep 5560 H, Total Protein 6.5, Albumin 2.9 L, Globulin 3.6 H, Albumin/Globulin Ratio 0.8 L 02/13/20 06:15: WBC 12.6 H, RBC 3.32 L, Hgb 9.6 L, Hct 28.9 L, MCV 87.2, MCH 29.0, MCHC 33.2, RDW 14.2, Plt Count 150, MPV 9.0, Neut % (Auto) 86.3 H, Lymph % (Auto) 9.4 L, [place] % (Auto) 3.4, Eos % (Auto) 0.8, Baso % (Auto) 0.1, Neut # (Auto) 10.8 H, Lymph # (Auto) 1.2, [place] # (Auto) 0.4, Eos # (Auto) 0.1, Baso # (Auto) 0.0 02/13/20 06:15: Sodium 136, Potassium 3.5, Chloride 106, Carbon Dioxide 21 L, Anion Gap 12.5, BUN 41 H, Creatinine 1.70 H, Estimated Creat Clear 50, Estimated GFR 40 L, Est GFR ( Amer) 49 L, Glucose 194 H, Calcium 7.3 L 02/13/20 06:42: POC Glucose 183 H I & O for Last 24 hours: Intake & Output 02/10/20 02/11/20 02/12/20 02/13/20 11:59 11:59 11:59 11:59 Intake Total 4497 / 4497 4728 / 4728 4200 / 4200 Output Total 450 / 450 1100 / 1100 2900 / 2900 Balance 4047 / 4047 3628 / 3628 1300 / 1300 Weight 380 lb 370 lb 13.08 oz 372 lb 5.772 oz 364 lb 13.84 oz Microbiology Reports for the Last 24 Hours: Microbiology 02/11/20 20:00 Urine,Clean Catch Urine Culture - Preliminary NO GROWTH AFTER 24 HOURS 02/10/20 17:16
--- NOTE | 2020-02-13 07:34 | PC.NURSE ---
UPDATING DR. MCDERMOTT OF EVENTS OF FLIGHT COMMUNICATIONS SPECIALIST AND REPORTED PT'S SKIN WAS NOTED MOTTLED DURING LETHARGIC EPISODE. WHILE ROUNDING WITH MD, PT'S SKIN IS NOTED PALE IN COLORATION ON THIS ROUND BUT NOT MOTTLED. RR 28, ON RA AT THIS TIME, NO DISTRESS NOTED. A&OX3, ABLE TO COMMUNICATE WITH STAFF, CALM AND COOPERATIVE ON THIS MD ROUND. ALSO MENTIONED TO MD ABOUT BP TRENDING BACK DOWN, ONLY 30 MG OF LASIX GIVEN OUT OF THE [address] ZAPATA AROUND 0400. ON REASSESSMENT OF BP, BP WAS NOTED 94/52, ASKED MD IF HE WOULD LIKE FOR THE REST OF THE LASIX BE ADMINISTERED (TO MAKE FOR THE TOTAL OF 60 MG DOSE). MD STATED HOLD THE REST OF THE LASIX FOR NOW. WASTED THE REST OF THE 30 MG OF LASIX IN SHARPS CONTAINER.
[2020-02-13 08:23] LABS: Lymphocytes % 7 % (10-50); Monocytes % 2 % (2-9); Neutrophils % 91 % (42-76); Platelet Estimate Normal; RBC Morphology Normal; Total Cells Counted 100
[2020-02-13 11:13] LABS: POC Glucose,Bedside 210 (70-110)
[2020-02-13 16:21] LABS: POC Glucose,Bedside 276 (70-110)
--- NOTE | 2020-02-13 18:12 | PC.NURSE ---
PT IS RESTING IN BED COMFORTABLY AFTER SPENDING MOST OF THE DAY UP TO CHAIR. PT WAS A+O *4 T/O SHIFT. HE IS STILL A 2 ASSIST FOR AMBULATION AND TOILETING. PT HAS TOLERATED 2L NC AND O2 SATS HAVE REMAINED >95 % T/O SHIFT. PT DOES C/O SOA UPON EXERTION BUT RESATURATES QUICKLY WITH REST. PT HAD LARGE FORMED BM THIS SHIFT. KOHLI CATH DRAINING DARK YELLOW URINE. NO C/O OF PAIN. VSS. WILL CONTINUE TO MONITOR
--- NOTE | 2020-02-13 19:10 | PC.NURSE ---
report given to franck
--- NOTE | 2020-02-13 22:36 | PC.NURSE ---
Pt's room air sat at rest = 90%.
[2020-02-14] VITALS (10 sets, daily range): BP systolic 112–165; BP diastolic 60–96; PULSE 80–109; RESP 20–40; TEMP 36.5–37.7; O2SAT 90–98; BMI 45.5
[2020-02-14 00:29] LABS: POC Glucose,Bedside 338 (70-110)
--- NOTE | 2020-02-14 04:26 | PC.NURSE ---
A&OX4. PT WAS TOLERATING 2L NC WELL UNTIL WE TRANSFERRED THE PT INTO A NEW BED. PT HAD TO BE INCREASED TO 3L NC AND IS TOLERATING WELL CURRENTLY. PT STATED HE COULDN'T GET COMFORTABLE AND WAS TOSSING AND TURNING A LOT. OFFERED TO MOVE HIM INTO A NEW BED AND PT AGREED. PT STATES NEW BED IS BETTER. PT TOLERATED TRANSFERRING WELL WITH THE HELP OF STAFF. RESPIRATIONS HAVE BEEN SHALLOW. TACHYPNEA NOTED THROUGHOUT SHIFT. PT BEGAN TO SPIKE A TEMPERATURE THIS SHIFT AND WAS ADMINISTERED TYLENOL PER SEP. TEMPERATURE HAS DECREASED SLIGHTLY. WILL CONTINUE TO MONITOR. ACTIVE BOWEL SOUNDS HEARD IN ALL 4 QUADRANTS. SOFT AND NONTENDER ABDOMEN. SCATTERED WHEEZING AND DIMINISHED LUNG SOUNDS NOTED THROUGHOUT. NO COUGH NOTED. GENERALIZED EDEMA NOTED. HAND MOPHEAD TRIMMER AND WRAPPER EQUAL. +2 PULSES NOTED. PT HAS RESTED MUCH BETTER THIS SHIFT COMPARED TO THE PREVIOUS NIGHT. NO PAIN OR NAUSEA REPORTED. PT MOVES INDEPENDENTLY IN BED. PT CURRENTLY LAYING IN BED WITH CALL LIGHT WITHIN REACH. BED IN LOWEST POSITION. BED ALARM ON TO PROMOTE SAFETY. VSS. NO CONCERNS AT THIS TIME. WILL CONTINUE TO MONITOR.
[2020-02-14 05:50] LABS: POC Glucose,Bedside 267 (70-110)
[2020-02-14 06:37] LABS: Basophils % 0.2 % (0.1-2.0); Eosinophils # 0.1 K/mm3 (0.0-0.4); Eosinophils % 1.1 % (0.1-12.0); Hematocrit 31.1 % (42.0-52.0); Hemoglobin 10.3 g/dL (14.1-18.0); Lymphocytes # 1.4 K/mm3 (0.7-4.5); Lymphocytes % 11.6 % (10-50); Mean Corpuscular HGB Conc 33.1 g/dL (31.8-35.4); Mean Corpuscular Volume 87.6 fl (80-94); Mean Platelet Volume 9.2 fl (7.4-10.4); Monocytes # 0.5 K/mm3 (0.1-1.0); Monocytes % 4.1 % (1.7-9.3); Neutrophils % 83.1 % (37.0-80.0); Platelet Count 190 K/mm3 (142-424); Red Blood Count 3.55 M/mm3 (4.60-6.20); Red Cell Distribution Width 14.6 % (11.5-17.5)
[2020-02-14 06:43] LABS: Chloride 105 mmol/L (98-107); Potassium 3.5 mmoL/L (3.5-5.1); Sodium 137 mmol/L (136-145)
[2020-02-14 06:45] LABS: Blood Urea Nitrogen 36 mg/dl (9-20); Creatinine Clearance Estimated 61 mL/min (50-200); Estimated Glomerular Filt Rate 51 ml/min (>60); GFR (African American) 61 ML/MIN (>60)
[2020-02-14 06:46] LABS: Alanine Aminotransferase 66 U/L (12-78); Albumin Level 2.6 g/dl (3.5-5.0); Alkaline Phosphatase 306 U/L (38-126); Anion Gap 13.5 mEq/L (5-15); Aspartate Amino Transferase 101 U/L (17-59); Bilirubin,Direct 0.6 mg/dl (0.0-0.4); Bilirubin,Indirect 0.5 mg/dL (0.0-0.9); Bilirubin,Total 1.1 mg/dl (0.2-1.3); Bilirubin,Unconjugated 0.4 mg/dL (0.0-1.1); Calcium 7.3 mg/dl (8.4-10.2); Carbon Dioxide 22 mmol/L (22.0-30.0); Glucose 278 mg/dl (74-100); Total Protein,Serum 6.1 g/dl (6.3-8.2)
--- NOTE | 2020-02-14 08:28 | HMH.ACPN2 ---
Internal Medicine - PN: Subj *Date: 02/14/20 *Time: 08:28 Interval history: Patient reports feeling better. He still has shortness of breath. Cough is become slightly productive of mostly clear sputum. He denies any abdominal pain. He is mostly frustrated by inability to sleep while here in the hospital. Exam Vital signs and Labs for Last 24 Hours: Temp Pulse Resp BP Pulse Ox 97.9 F 95 H 20 136/84 96 02/14/20 07:38 02/14/20 07:38 02/14/20 07:38 02/14/20 07:38 02/14/20 07:38 Laboratory Results - last 24 hr 02/13/20 11:05: POC Glucose 210 H 02/13/20 16:00: POC Glucose 276 H 02/13/20 20:13: POC Glucose 338 H* 02/14/20 05:42: POC Glucose 267 H 02/14/20 06:14: WBC 12.0 H, RBC 3.55 L, Hgb 10.3 L, Hct 31.1 L, MCV 87.6, MCH 29.0, MCHC 33.1, RDW 14.6, Plt Count 190 D, MPV 9.2, Neut % (Auto) 83.1 H, Lymph % (Auto) 11.6, [place] % (Auto) 4.1, Eos % (Auto) 1.1, Baso % (Auto) 0.2, Neut # (Auto) 10.0 H, Lymph # (Auto) 1.4, [place] # (Auto) 0.5, Eos # (Auto) 0.1, Baso # (Auto) 0.0 02/14/20 06:14: Sodium 137, Potassium 3.5, Chloride 105, Carbon Dioxide 22, Anion Gap 13.5, BUN 36 H, Creatinine 1.40 H, Estimated Creat Clear 61, Estimated GFR 51 L, Est GFR ( Amer) 61 D, Glucose 278 H D, Calcium 7.3 L, Total Bilirubin 1.1, Direct Bilirubin 0.6 H, Conjugated Bilirubin 0.0, Indirect Bilirubin 0.5, Unconjugated Bilirubin 0.4, AST 101 H, ALT 66, Alkaline Phosphatase 306 H, Total Protein 6.1 L, Albumin 2.6 L D I & O for Last 24 hours: Intake & Output 07/22/02/12/20 02/13/20 02/14/20 11:59 11:59 11:59 11:59 Intake Total 4497 / 4497 4728 / 4728 4560 / 4560 2477 / 2477 Output Total 450 / 450 1100 / 1100 2900 / 2900 2550 / 2550 Balance 4047 / 4047 3628 / 3628 1660 / 1660 -73 / -73 Weight 370 lb 13.08 oz 372 lb 5.772 oz 364 lb 13.84 oz 366 lb 4 oz Microbiology Reports for the Last 24 Hours: Microbiology 02/11/20 20:15 Blood Blood Culture - Preliminary NO GROWTH AFTER 48 HOURS 02/11/20 20:15 Blood Blood Culture - Preliminary NO GROWTH AFTER 48 HOURS 02/11/20 20:00 Urine,Clean Catch Urine Culture - Final Multiple organisms, suggests contamination. Narrative: Patient is laying in bed with covers off of him in his lower body exposed. He is more alert. Lungs have distant breath sounds throughout with rales at the right base. Heart has a regular rate and rhythm. Abdomen is obese and soft. Watson catheter is anchored and draining clear dark yellow urine White blood cell count has decreased slightly Blood and urine cultures done during admission are showing no growth Assessment and Plan (1) Pneumonia Current visit: Yes Status: Suspected Qualifiers: Pneumonia type: due to unspecified organism Category: Medical Code(s): J18.9 - Pneumonia, unspecified organism (2) Sepsis Current visit: Yes Status: Suspected Qualifiers: Sepsis type: sepsis due to unspecified organism Severe sepsis acute organ dysfunction type: acute renal failure Acute renal failure type: with acute tubular necrosis Severe sepsis shock status: without septic shock Category: Medical Code(s): A41.9 - Sepsis, unspecified organism (3) Type 2 diabetes mellitus with hyperglycemia Current visit: Yes Status: Chronic Qualifiers: Diabetes mellitus vermin exterminator insulin use: with vermin exterminator use Qualified Code(s): E11.65 - Type 2 diabetes mellitus with hyperglycemia; Z79.4 - terminal make up operator (current) use of insulin Category: Medical Code(s): E11.65 - Type 2 diabetes mellitus with hyperglycemia (4) Hypertension Current visit: Yes Status: Chronic Qualifiers: Hypertension type: essential hypertension Qualified Code(s): I10 - Essential (primary) hypertension Category: Medical Code(s): I10 - Essential (primary) hypertension (5) Morbid obesity Current visit: Yes Status: Chronic Category: Medical Code(s): E6
[2020-02-14 11:10] LABS: Hep A Ab, IgM Negative (Negative); Hepatitis B Core Antibody IgM Negative (Negative); Hepatitis B Surface Antigen Negative (Negative)
[2020-02-14 12:59] LABS: Hepatitis C Antibody 0.3 s/co ratio (0.0-0.9)
--- NOTE | 2020-02-14 12:59 | HMH.ACPN ---
Internal Medicine - PN: Subj *Date: 02/14/20 *Time: 12:59 Exam Vital signs and Labs for Last 24 Hours: Temp Pulse Resp BP Pulse Ox 97.9 F 95 H 20 136/84 96 02/14/20 07:38 02/14/20 07:38 02/14/20 07:38 02/14/20 07:38 02/14/20 08:00 Laboratory Results - last 24 hr 02/13/20 16:00: POC Glucose 276 H 02/13/20 20:13: POC Glucose 338 H* 02/14/20 05:42: POC Glucose 267 H 02/14/20 06:14: WBC 12.0 H, RBC 3.55 L, Hgb 10.3 L, Hct 31.1 L, MCV 87.6, MCH 29.0, MCHC 33.1, RDW 14.6, Plt Count 190 D, MPV 9.2, Neut % (Auto) 83.1 H, Lymph % (Auto) 11.6, [place] % (Auto) 4.1, Eos % (Auto) 1.1, Baso % (Auto) 0.2, Neut # (Auto) 10.0 H, Lymph # (Auto) 1.4, [place] # (Auto) 0.5, Eos # (Auto) 0.1, Baso # (Auto) 0.0 02/14/20 06:14: Sodium 137, Potassium 3.5, Chloride 105, Carbon Dioxide 22, Anion Gap 13.5, BUN 36 H, Creatinine 1.40 H, Estimated Creat Clear 61, Estimated GFR 51 L, Est GFR ( Amer) 61 D, Glucose 278 H D, Calcium 7.3 L, Total Bilirubin 1.1, Direct Bilirubin 0.6 H, Conjugated Bilirubin 0.0, Indirect Bilirubin 0.5, Unconjugated Bilirubin 0.4, AST 101 H, ALT 66, Alkaline Phosphatase 306 H, Total Protein 6.1 L, Albumin 2.6 L D I & O for Last 24 hours: Intake & Output 02/11/20 02/12/20 02/13/20 02/14/20 23:59 23:59 23:59 23:59 Intake Total 4617 / 8464 6544 / 6544 4114 / 4114 1227 / 1227 Output Total 900 / 900 1400 / 1400 4050 / 4050 850 / 850 Balance 3717 / 7564 5144 / 5144 64 / 64 377 / 377 Weight 168 kg 168.9 kg 165.5 kg 166.128 kg Microbiology Reports for the Last 24 Hours: Microbiology 02/11/20 20:15 Blood Blood Culture - Preliminary NO GROWTH AFTER 48 HOURS 02/11/20 20:15 Blood Blood Culture - Preliminary NO GROWTH AFTER 48 HOURS Assessment and Plan (1) Pneumonia Current visit: Yes Status: Suspected Qualifiers: Pneumonia type: due to unspecified organism Category: Medical Code(s): J18.9 - Pneumonia, unspecified organism (2) Sepsis Current visit: Yes Status: Suspected Qualifiers: Sepsis type: sepsis due to unspecified organism Severe sepsis acute organ dysfunction type: acute renal failure Acute renal failure type: with acute tubular necrosis Severe sepsis shock status: without septic shock Category: Medical Code(s): A41.9 - Sepsis, unspecified organism (3) Type 2 diabetes mellitus with hyperglycemia Current visit: Yes Status: Chronic Qualifiers: Diabetes mellitus intermodal dispatcher insulin use: with intermodal dispatcher use Qualified Code(s): E11.65 - Type 2 diabetes mellitus with hyperglycemia; Z79.4 - snf (current) use of insulin Category: Medical Code(s): E11.65 - Type 2 diabetes mellitus with hyperglycemia (4) Hypertension Current visit: Yes Status: Chronic Qualifiers: Hypertension type: essential hypertension Qualified Code(s): I10 - Essential (primary) hypertension Category: Medical Code(s): I10 - Essential (primary) hypertension (5) Morbid obesity Current visit: Yes Status: Chronic Category: Medical Code(s): E66.01 - Morbid (severe) obesity due to excess calories (6) TITO (acute kidney injury) Current visit: Yes Status: Resolved Category: Medical Code(s): N17.9 - Acute kidney failure, unspecified (7) BMI 45.0-49.9, adult Current visit: Yes Status: Acute Category: Medical Code(s): Z68.42 - Body mass index (BMI) 45.0-49.9, adult (8) Abnormal liver function Current visit: Yes Status: Acute Category: Medical Code(s): R94.5 - Abnormal results of liver function studies (9) UTI (urinary tract infection) Current visit: Yes Status: Ruled-out Qualifiers: Urinary tract infection type: acute cystitis Hematuria presence: with hematuria Qualified Code(s): N30.01 - Acute cystitis with hematuria Category: Medical Code(s): N39.0 - Urinary tract infection, site not specified The patient's infection will respond to the chosen ABx?: Yes
--- NOTE | 2020-02-14 15:06 | PC.NURSE ---
pt given treatment with hypertonic saline at this time. pt has strong dry hacking cough. no reuslts at his time. pt has cup at bedside.
[2020-02-14 17:34] LABS: POC Glucose,Bedside 298 (70-110)
[2020-02-14 17:34] LABS: POC Glucose,Bedside 288 (70-110)
--- NOTE | 2020-02-14 19:07 | PC.NURSE ---
AT 1530, PTS RESPIRATIONS INCREASED TO 40, PT WAS ASSESSED BY RT AND PLACED BACK ON BIPAP WHILE SLEEPING. RR DECREASED TO 20 IMMEDIATELY. TYLENOL GIVEN FOR FEVER OF 99.8, MEDICATION EFFECTIVE AND TEMPERATURE DECREASED TO 98.8. PT WAS ABLE TO REST WELL THIS AFTERNOON. NO DISTRESS NOTED. VSS. WILL CONTINUE TO MONITOR
[2020-02-14 21:33] LABS: POC Glucose,Bedside 236 (70-110)
[2020-02-15] VITALS (12 sets, daily range): BP systolic 128–150; BP diastolic 69–89; PULSE 82–99; RESP 18–32; TEMP 36.6–37.2; O2SAT 92–99; BMI 46.0
--- NOTE | 2020-02-15 05:00 | PC.NURSE ---
Pt has rested well t/o this shift. Pt continues to tolerate 2L NC during awake hours, and bipap during sleeping hours. Pt received a full linen change this shift. Pts IV on RFA was d/c due to infiltration. 20g was inserted into pt's R index finger by BENNY ALVAREZ. IV is patent and flushes appropriately. Pt has remained afebrile this shift. No complaints at this time. Call light within reach, will continue to monitor.
[2020-02-15 05:47] LABS: POC Glucose,Bedside 270 (70-110)
[2020-02-15 07:14] LABS: Alanine Aminotransferase 60 U/L (12-78); Albumin Level 2.7 g/dl (3.5-5.0); Alkaline Phosphatase 361 U/L (38-126); Anion Gap 12.5 mEq/L (5-15); Aspartate Amino Transferase 79 U/L (17-59); Bilirubin,Direct 0.4 mg/dl (0.0-0.4); Bilirubin,Indirect 0.3 mg/dL (0.0-0.9); Bilirubin,Total 0.7 mg/dl (0.2-1.3); Bilirubin,Unconjugated 0.4 mg/dL (0.0-1.1); Blood Urea Nitrogen 28 mg/dl (9-20); Carbon Dioxide 25 mmol/L (22.0-30.0); Chloride 105 mmol/L (98-107); Creatinine Clearance Estimated 78 mL/min (50-200); Estimated Glomerular Filt Rate 67 ml/min (>60); GFR (African American) 81 ML/MIN (>60); Glucose 270 mg/dl (74-100); Potassium 3.5 mmoL/L (3.5-5.1); Sodium 139 mmol/L (136-145); Total Protein,Serum 6.3 g/dl (6.3-8.2)
[2020-02-15 07:18] LABS: Calcium 8.1 mg/dl (8.4-10.2)
[2020-02-15 07:52] LABS: Basophils # 0.1 K/mm3 (0-0.2); Basophils % 0.5 % (0.1-2.0); Eosinophils # 0.2 K/mm3 (0.0-0.4); Eosinophils % 1.8 % (0.1-12.0); Hemoglobin 10.2 g/dL (14.1-18.0); Lymphocytes # 1.7 K/mm3 (0.7-4.5); Lymphocytes % 13.9 % (10-50); Mean Corpuscular Hemoglobin 28.1 pg (27.0-31.2); Mean Corpuscular Volume 87.7 fl (80-94); Mean Platelet Volume 8.5 fl (7.4-10.4); Monocytes # 0.5 K/mm3 (0.1-1.0); Monocytes % 3.9 % (1.7-9.3); Neutrophils # 9.6 K/mm3 (1.8-7.8); Neutrophils % 79.9 % (37.0-80.0); Platelet Count 197 K/mm3 (142-424); Red Blood Count 3.64 M/mm3 (4.60-6.20); Red Cell Distribution Width 14.5 % (11.5-17.5); White Blood Count 12.1 K/mm3 (4.8-10.8)
--- NOTE | 2020-02-15 07:57 | HMH.ACPN2 ---
Internal Medicine - PN: Subj *Date: 02/15/20 *Time: 07:57 Interval history: Nursing reports patient slept most of the day yesterday and also slept well overnight with use of BiPAP. Patient reports this morning that he is feeling better. He still has shortness of breath. Patient had a good response to low-dose IV Lasix yesterday but oral intake matched his urine output. Patient reports poor appetite and nausea. Cough remains mostly nonproductive although a sputum culture has shown some budding yeast Exam Vital signs and Labs for Last 24 Hours: Temp Pulse Resp BP Pulse Ox 98.4 F 89 30 H 144/88 H 98 02/15/20 04:00 02/15/20 06:56 02/15/20 04:00 02/15/20 04:00 02/15/20 06:56 Laboratory Results - last 24 hr 02/13/20 06:15: Hepatitis A IgM Ab Negative, Hep Bs Antigen Negative, Hep B Core IgM Ab Negative, Hepatitis C Antibody 0.3 02/14/20 11:38: POC Glucose 298 H 02/14/20 17:15: POC Glucose 288 H 02/14/20 21:12: POC Glucose 236 H 02/15/20 05:33: POC Glucose 270 H 02/15/20 06:37: Sodium 139, Potassium 3.5, Chloride 105, Carbon Dioxide 25, Anion Gap 12.5, BUN 28 H, Creatinine 1.10 D, Estimated Creat Clear 78, Estimated GFR 67, Est GFR ( Amer) 81 D, Glucose 270 H, Calcium 8.1 L D, Total Bilirubin 0.7, Direct Bilirubin 0.4, Conjugated Bilirubin 0.0, Indirect Bilirubin 0.3, Unconjugated Bilirubin 0.4, AST 79 H, ALT 60, Alkaline Phosphatase 361 H, Total Protein 6.3, Albumin 2.7 L 02/15/20 06:57: WBC 12.1 H, RBC 3.64 L, Hgb 10.2 L, Hct 32.0 L, MCV 87.7, MCH 28.1, MCHC 32.0, RDW 14.5, Plt Count 197, MPV 8.5, Neut % (Auto) 79.9, Lymph % (Auto) 13.9, [place] % (Auto) 3.9, Eos % (Auto) 1.8, Baso % (Auto) 0.5, Neut # (Auto) 9.6 H, Lymph # (Auto) 1.7, [place] # (Auto) 0.5, Eos # (Auto) 0.2, Baso # (Auto) 0.1 I & O for Last 24 hours: Intake & Output 02/12/20 02/13/20 02/14/20 02/15/20 11:59 11:59 11:59 11:59 Intake Total 4728 / 4728 4560 / 4560 2477 / 2477 960 / 960 Output Total 1100 / 1100 2900 / 2900 2550 / 2550 1200 / 1200 Balance 3628 / 3628 1660 / 1660 -73 / -73 -240 / -240 Weight 372 lb 5.772 oz 364 lb 13.84 oz 366 lb 4 oz 370 lb 8 oz Microbiology Reports for the Last 24 Hours: Microbiology 02/14/20 15:00 Sputum - Expectorated Sputum Gram Stain - Final 02/14/20 15:00 Sputum - Expectorated Sputum Sputum Culture - Preliminary Narrative: Patient is laying supine in the bed with CPAP in place. Oropharynx is dry. Lungs are diminished at the right base. Heart has a regular rate and rhythm. Abdomen is obese and soft. Lower extremities have no rashes or evidence of cellulitis. Sputum culture shows budding yeast Viral hepatitis panel is negative Liver profile reveals rising alkaline phosphatase Assessment and Plan (1) Pneumonia Current visit: Yes Status: Suspected Qualifiers: Pneumonia type: due to unspecified organism Category: Medical Code(s): J18.9 - Pneumonia, unspecified organism (2) Sepsis Current visit: Yes Status: Suspected Qualifiers: Sepsis type: sepsis due to unspecified organism Severe sepsis acute organ dysfunction type: acute renal failure Acute renal failure type: with acute tubular necrosis Severe sepsis shock status: without septic shock Category: Medical Code(s): A41.9 - Sepsis, unspecified organism (3) Type 2 diabetes mellitus with hyperglycemia Current visit: Yes Status: Chronic Qualifiers: Diabetes mellitus jail insulin use: with extermination inspector use Qualified Code(s): E11.65 - Type 2 diabetes mellitus with hyperglycemia; Z79.4 - intermediate (current) use of insulin Category: Medical Code(s): E11.65 - Type 2 diabetes mellitus with hyperglycemia (4) Hypertension Current visit: Yes Status: Chronic Qualifiers: Hypertension type: essential hypertension Qualified Code(s): I10 - Essential (primary) hypertension Category: Medical Code(s): I10 - Essential (primary) hypertension (5) Morbid obesity Current visit: Nicko
--- NOTE | 2020-02-15 11:22 | HMH.ACPN ---
Internal Medicine - PN: Subj *Date: 02/15/20 *Time: 11:22 Exam Vital signs and Labs for Last 24 Hours: Temp Pulse Resp BP Pulse Ox 98.5 F 99 H 24 149/89 H 98 02/15/20 08:00 02/15/20 10:59 02/15/20 08:00 02/15/20 08:00 02/15/20 10:59 Laboratory Results - last 24 hr 02/13/20 06:15: Hepatitis A IgM Ab Negative, Hep Bs Antigen Negative, Hep B Core IgM Ab Negative, Hepatitis C Antibody 0.3 02/14/20 11:38: POC Glucose 298 H 02/14/20 17:15: POC Glucose 288 H 02/14/20 21:12: POC Glucose 236 H 02/15/20 05:33: POC Glucose 270 H 02/15/20 06:37: Sodium 139, Potassium 3.5, Chloride 105, Carbon Dioxide 25, Anion Gap 12.5, BUN 28 H, Creatinine 1.10 D, Estimated Creat Clear 78, Estimated GFR 67, Est GFR ( Amer) 81 D, Glucose 270 H, Calcium 8.1 L D, Total Bilirubin 0.7, Direct Bilirubin 0.4, Conjugated Bilirubin 0.0, Indirect Bilirubin 0.3, Unconjugated Bilirubin 0.4, AST 79 H, ALT 60, Alkaline Phosphatase 361 H, Total Protein 6.3, Albumin 2.7 L 02/15/20 06:57: WBC 12.1 H, RBC 3.64 L, Hgb 10.2 L, Hct 32.0 L, MCV 87.7, MCH 28.1, MCHC 32.0, RDW 14.5, Plt Count 197, MPV 8.5, Neut % (Auto) 79.9, Lymph % (Auto) 13.9, [place] % (Auto) 3.9, Eos % (Auto) 1.8, Baso % (Auto) 0.5, Neut # (Auto) 9.6 H, Lymph # (Auto) 1.7, [place] # (Auto) 0.5, Eos # (Auto) 0.2, Baso # (Auto) 0.1 I & O for Last 24 hours: Intake & Output 02/12/20 02/13/20 02/14/20 02/15/20 23:59 23:59 23:59 23:59 Intake Total 6544 / 6544 4114 / 4114 1707 / 1707 840 / 840 Output Total 1400 / 1400 4050 / 4050 1500 / 1700 600 / 600 Balance 5144 / 5144 64 / 64 207 / 7 240 / 240 Weight 168.9 kg 165.5 kg 166.128 kg 168.056 kg Microbiology Reports for the Last 24 Hours: Microbiology 02/14/20 15:00 Sputum - Expectorated Sputum Gram Stain - Final 02/14/20 15:00 Sputum - Expectorated Sputum Sputum Culture - Preliminary Assessment and Plan (1) Pneumonia Current visit: Yes Status: Suspected Qualifiers: Pneumonia type: due to unspecified organism Category: Medical Code(s): J18.9 - Pneumonia, unspecified organism (2) Sepsis Current visit: Yes Status: Suspected Qualifiers: Sepsis type: sepsis due to unspecified organism Severe sepsis acute organ dysfunction type: acute renal failure Acute renal failure type: with acute tubular necrosis Severe sepsis shock status: without septic shock Category: Medical Code(s): A41.9 - Sepsis, unspecified organism (3) Type 2 diabetes mellitus with hyperglycemia Current visit: Yes Status: Chronic Qualifiers: Diabetes mellitus mcfp insulin use: with long filler cigar roller machine use Qualified Code(s): E11.65 - Type 2 diabetes mellitus with hyperglycemia; Z79.4 - terminal gauger (current) use of insulin Category: Medical Code(s): E11.65 - Type 2 diabetes mellitus with hyperglycemia (4) Hypertension Current visit: Yes Status: Chronic Qualifiers: Hypertension type: essential hypertension Qualified Code(s): I10 - Essential (primary) hypertension Category: Medical Code(s): I10 - Essential (primary) hypertension (5) Morbid obesity Current visit: Yes Status: Chronic Category: Medical Code(s): E66.01 - Morbid (severe) obesity due to excess calories (6) TITO (acute kidney injury) Current visit: Yes Status: Resolved Category: Medical Code(s): N17.9 - Acute kidney failure, unspecified (7) BMI 45.0-49.9, adult Current visit: Yes Status: Acute Category: Medical Code(s): Z68.42 - Body mass index (BMI) 45.0-49.9, adult (8) Abnormal liver function Current visit: Yes Status: Acute Category: Medical Code(s): R94.5 - Abnormal results of liver function studies (9) UTI (urinary tract infection) Current visit: Yes Status: Ruled-out Qualifiers: Urinary tract infection type: acute cystitis Hematuria presence: with hematuria Qualified Code(s): N30.01 - Acute cystitis with hematuria Category: Medical Code(s): N39.0 - Urinary tract infection, site not
[2020-02-15 11:26] LABS: POC Glucose,Bedside 238 (70-110)
[2020-02-15 17:06] LABS: POC Glucose,Bedside 343 (70-110)
--- NOTE | 2020-02-15 17:17 | PC.NURSE ---
PT IS SITTING UP IN THE CHAIR WITH VISITOR IN THE ROOM. PT HAS BEEN UP IN THE CHAIR FOR MOST OF THE SHIFT. ALERT AND ORIENTED X4. PLEASANT AND TALKATIVE. BATH AND TOTAL BED CHANGE THIS SHIFT. 1 ASSIST TO GET OOB. O2 SATURATION HAS BEEN IN THE MID 90'S T/O THE SHIFT. RESPIRATIONS 28-30 WHILE IN THE BED SLEEPING BUT 20-24 WHEN AWAKE IN THE CHAIR. LUNG SOUNDS DIMINISHED. ABDOMEN SOFT/NON TENDER WITH NORMAL BOWEL SOUNDS. APPETITE HAS BEEN POOR B/C OF THRUSH. PT HAS BEEN DRINKING GLUCERNA WITH EACH MEAL. WILL CONTINUE TO MONITOR.
[2020-02-15 20:26] LABS: POC Glucose,Bedside 347 (70-110)
--- NOTE | 2020-02-15 21:24 | HMH.ACPN2 ---
Internal Medicine - PN: Subj *Date: 02/11/20 *Time: 21:10 Interval history: saw pt and pt with acute delerium and gave order for restraints per [facility] policy Exam Vital signs and Labs for Last 24 Hours: Temp Pulse Resp BP Pulse Ox 97.9 F 88 18 150/79 H 96 02/15/20 20:00 02/15/20 21:00 02/15/20 20:00 02/15/20 20:00 02/15/20 20:00 Laboratory Results - last 24 hr 02/14/20 21:12: POC Glucose 236 H 02/15/20 05:33: POC Glucose 270 H 02/15/20 06:37: Sodium 139, Potassium 3.5, Chloride 105, Carbon Dioxide 25, Anion Gap 12.5, BUN 28 H, Creatinine 1.10 D, Estimated Creat Clear 78, Estimated GFR 67, Est GFR ( Amer) 81 D, Glucose 270 H, Calcium 8.1 L D, Total Bilirubin 0.7, Direct Bilirubin 0.4, Conjugated Bilirubin 0.0, Indirect Bilirubin 0.3, Unconjugated Bilirubin 0.4, AST 79 H, ALT 60, Alkaline Phosphatase 361 H, Total Protein 6.3, Albumin 2.7 L 02/15/20 06:57: WBC 12.1 H, RBC 3.64 L, Hgb 10.2 L, Hct 32.0 L, MCV 87.7, MCH 28.1, MCHC 32.0, RDW 14.5, Plt Count 197, MPV 8.5, Neut % (Auto) 79.9, Lymph % (Auto) 13.9, [place] % (Auto) 3.9, Eos % (Auto) 1.8, Baso % (Auto) 0.5, Neut # (Auto) 9.6 H, Lymph # (Auto) 1.7, [place] # (Auto) 0.5, Eos # (Auto) 0.2, Baso # (Auto) 0.1 02/15/20 11:11: POC Glucose 238 H 02/15/20 16:46: POC Glucose 343 H* 02/15/20 20:05: POC Glucose 347 H* I & O for Last 24 hours: Intake & Output 02/13/20 02/14/20 02/15/20 02/16/20 11:59 11:59 11:59 11:59 Intake Total 4560 / 4560 2477 / 2477 1800 / 1800 1230 / 1230 Output Total 2900 / 2900 2550 / 2550 1600 / 1600 950 / 950 Balance 1660 / 1660 -73 / -73 200 / 200 280 / 280 Weight 364 lb 13.84 oz 366 lb 4 oz 370 lb 8 oz Microbiology Reports for the Last 24 Hours: Microbiology 02/10/20 17:16 Blood Blood Culture - Final NO GROWTH AFTER 5 DAYS 02/10/20 17:16 Blood Blood Culture - Final NO GROWTH AFTER 5 DAYS 02/14/20 15:00 Sputum - Expectorated Sputum Gram Stain - Final 02/14/20 15:00 Sputum - Expectorated Sputum Sputum Culture - Preliminary - Constitutional combative, agitated - *Routine HEENT Exam Head: Present: normocephalic Eye: Present: EOMI, PERRL ENT: Present: mucous membranes dry - *Routine Neck Exam Present: trachea midline. Absent: meningismus - *Routine Respiratory Exam Present: decreased breath sounds - *Routine Cardiovascular Exam Present: RRR - *Routine Abdominal Exam Present: soft - *Routine Extremities Exam Present: full ROM - *Routine Skin Exam Present: intact - *Routine Neurological Exam Present: altered mental status, moving all extremities no focal changes - Routine Psychiatric Exam Present: unable to assess Assessment and Plan (1) Pneumonia Current visit: Yes Status: Suspected Qualifiers: Pneumonia type: due to unspecified organism Category: Medical Code(s): J18.9 - Pneumonia, unspecified organism (2) Sepsis Current visit: Yes Status: Suspected Qualifiers: Sepsis type: sepsis due to unspecified organism Severe sepsis acute organ dysfunction type: acute renal failure Acute renal failure type: with acute tubular necrosis Severe sepsis shock status: without septic shock Category: Medical Code(s): A41.9 - Sepsis, unspecified organism (3) Type 2 diabetes mellitus with hyperglycemia Current visit: Yes Status: Chronic Qualifiers: Diabetes mellitus retirement insulin use: with retirement use Qualified Code(s): E11.65 - Type 2 diabetes mellitus with hyperglycemia; Z79.4 - terminal carman (current) use of insulin Category: Medical Code(s): E11.65 - Type 2 diabetes mellitus with hyperglycemia (4) Hypertension Current visit: Yes Status: Chronic Qualifiers: Hypertension type: essential hypertension Qualified Code(s): I10 - Essential (primary) hypertension Category: Medical Code(s): I10 - Essential (primary) hypertension (5) Morbid obesity Current visit: Yes
--- NOTE | 2020-02-15 22:22 | PC.NURSE ---
Upon transferring this pt to bed, two small, blue pills were found on pt's chair. When this nurse went to pick the pills up, pt said it's just vitamins . The pills had advil PM on them. The pills were disposed of in the sharps and pt was asked if he was in pain to which he responded no, I just use them for sleep. Room was searched for anymore pills, and none were found. Pt stated there weren't anymore. This nurse then said she could call his MD to see if he could get something for sleep and pt responded no, johanna lilly. pt is currently in bed with bipap on, and sleeping.
--- NOTE | 2020-02-15 22:30 | PC.NURSE ---
Pt has been given verbal and printed information regarding FAQ's about catheter-associated UTI's
[2020-02-16] VITALS (10 sets, daily range): BP systolic 112–158; BP diastolic 66–80; PULSE 84–98; RESP 16–32; TEMP 36.5–37.2; O2SAT 88–98; BMI 46.3
[2020-02-16 05:42] LABS: POC Glucose,Bedside 257 (70-110)
[2020-02-16 05:57] LABS: Basophils # 0.1 K/mm3 (0-0.2); Basophils % 0.6 % (0.1-2.0); Eosinophils # 0.3 K/mm3 (0.0-0.4); Eosinophils % 1.7 % (0.1-12.0); Hematocrit 31.8 % (42.0-52.0); Hemoglobin 10.7 g/dL (14.1-18.0); Lymphocytes # 2.3 K/mm3 (0.7-4.5); Lymphocytes % 13.5 % (10-50); Mean Corpuscular HGB Conc 33.6 g/dL (31.8-35.4); Mean Corpuscular Volume 86.3 fl (80-94); Monocytes # 0.6 K/mm3 (0.1-1.0); Monocytes % 3.4 % (1.7-9.3); Neutrophils # 13.7 K/mm3 (1.8-7.8); Neutrophils % 80.8 % (37.0-80.0); Platelet Count 227 K/mm3 (142-424); Red Blood Count 3.68 M/mm3 (4.60-6.20); Red Cell Distribution Width 14.5 % (11.5-17.5)
[2020-02-16 06:03] LABS: MANUAL DIFFERENTIAL MANUAL DIFFERENTIAL (MANUAL DIFF)
[2020-02-16 06:08] LABS: Alanine Aminotransferase 48 U/L (12-78); Albumin Level 2.7 g/dl (3.5-5.0); Alkaline Phosphatase 332 U/L (38-126); Aspartate Amino Transferase 44 U/L (17-59); Bilirubin,Direct 0.2 mg/dl (0.0-0.4); Bilirubin,Indirect 0.4 mg/dL (0.0-0.9); Bilirubin,Total 0.6 mg/dl (0.2-1.3); Bilirubin,Unconjugated 0.3 mg/dL (0.0-1.1); Total Protein,Serum 6.4 g/dl (6.3-8.2)
[2020-02-16 06:22] LABS: Lymphocytes % 13 % (10-50); Monocytes % 6 % (2-9); Neutrophils % 74 % (42-76); Platelet Estimate Normal; RBC Morphology Normal; Rouleaux 2+; Total Cells Counted 100
--- NOTE | 2020-02-16 07:14 | HMH.ACPN2 ---
Internal Medicine - PN: Subj *Date: 02/16/20 *Time: 07:15 Interval history: Patient has no complaints this morning. He slept well overnight. He reports he had a better day yesterday. Dyspnea has improved minimally over the last 24 hours. Review of I's and O's show a positive fluid balance over the last 24 hours. Patient's cough remains nonproductive. He did complain of some oral pain and was given Magic mouthwash in addition to being started on fluconazole due to yeast in his sputum. Patient was out of bed yesterday and states he felt well. Appetite was better yesterday. Exam Vital signs and Labs for Last 24 Hours: Temp Pulse Resp BP Pulse Ox 97.7 F 94 H 17 136/66 98 02/16/20 03:55 02/16/20 06:18 02/16/20 03:55 02/16/20 03:55 02/16/20 03:55 Laboratory Results - last 24 hr 02/15/20 06:37: Sodium 139, Potassium 3.5, Chloride 105, Carbon Dioxide 25, Anion Gap 12.5, BUN 28 H, Creatinine 1.10 D, Estimated Creat Clear 78, Estimated GFR 67, Est GFR ( Amer) 81 D, Glucose 270 H, Calcium 8.1 L D, Total Bilirubin 0.7, Direct Bilirubin 0.4, Conjugated Bilirubin 0.0, Indirect Bilirubin 0.3, Unconjugated Bilirubin 0.4, AST 79 H, ALT 60, Alkaline Phosphatase 361 H, Total Protein 6.3, Albumin 2.7 L 02/15/20 06:57: WBC 12.1 H, RBC 3.64 L, Hgb 10.2 L, Hct 32.0 L, MCV 87.7, MCH 28.1, MCHC 32.0, RDW 14.5, Plt Count 197, MPV 8.5, Neut % (Auto) 79.9, Lymph % (Auto) 13.9, [place] % (Auto) 3.9, Eos % (Auto) 1.8, Baso % (Auto) 0.5, Neut # (Auto) 9.6 H, Lymph # (Auto) 1.7, [place] # (Auto) 0.5, Eos # (Auto) 0.2, Baso # (Auto) 0.1 02/15/20 11:11: POC Glucose 238 H 02/15/20 16:46: POC Glucose 343 H* 02/15/20 20:05: POC Glucose 347 H* 02/16/20 05:31: Total Bilirubin 0.6, Direct Bilirubin 0.2, Conjugated Bilirubin 0.0, Indirect Bilirubin 0.4, Unconjugated Bilirubin 0.3, AST 44 D, ALT 48, Alkaline Phosphatase 332 H, Total Protein 6.4, Albumin 2.7 L 02/16/20 05:31: WBC 17.0 H D, RBC 3.68 L, Hgb 10.7 L, Hct 31.8 L, MCV 86.3, MCH 29.0, MCHC 33.6, RDW 14.5, Plt Count 227, MPV 8.0, Neut % (Auto) 80.8 H, Lymph % (Auto) 13.5, [place] % (Auto) 3.4, Eos % (Auto) 1.7, Baso % (Auto) 0.6, Neut # (Auto) 13.7 H, Lymph # (Auto) 2.3, [place] # (Auto) 0.6, Eos # (Auto) 0.3, Baso # (Auto) 0.1, Total Counted 100, Neutrophils % (Manual) 74, Band Neutrophils % 7.0, Lymphocytes % (Manual) 13, Monocytes % (Manual) 6, Platelet Estimate Normal, RBC Morphology Normal, Rouleaux 2+ 02/16/20 05:32: POC Glucose 257 H I & O for Last 24 hours: Intake & Output 02/13/20 02/14/20 02/15/20 02/16/20 11:59 11:59 11:59 11:59 Intake Total 4560 / 4560 2477 / 2477 1800 / 1800 1710 / 1710 Output Total 2900 / 2900 2550 / 2550 1600 / 1600 1650 / 1650 Balance 1660 / 1660 -73 / -73 200 / 200 60 / 60 Weight 364 lb 13.84 oz 366 lb 4 oz 370 lb 8 oz 372 lb 10.887 oz Microbiology Reports for the Last 24 Hours: Microbiology 02/10/20 17:16 Blood Blood Culture - Final NO GROWTH AFTER 5 DAYS 02/10/20 17:16 Blood Blood Culture - Final NO GROWTH AFTER 5 DAYS 02/14/20 15:00 Sputum - Expectorated Sputum Gram Stain - Final 02/14/20 15:00 Sputum - Expectorated Sputum Sputum Culture - Preliminary Narrative: Patient is resting comfortably in bed. BiPAP is in place. Patient awakens easily. Speech is fluent and clear. Patient seems more alert and energetic. Lungs are clear anteriorly and diminished at the right base. Abdomen is soft, nontender, nondistended but obese. Assessment and Plan (1) Pneumonia Current visit: Yes Status: Suspected Qualifiers: Pneumonia type: due to unspecified organism Category: Medical Code(s): J18.9 - Pneumonia, unspecified organism Continue IV Rocephin and azithromycin. Patient's white count did increase since discontinuation of Zyvox (2) Sepsis Current visit: Yes Status: Suspected Qualifiers: Sepsis type: sepsis due to unspecified organism Severe sepsis acute
--- NOTE | 2020-02-16 07:43 | SW/DCPLANNER ---
Addendum entered by Rebeca Young 02/16/20 10:05: PATIENT DID AGREE TO HAVE HOME HEALTH SERVICES... THIS WILL BE SET UP IN THE AM PRIOR TO DISCHARGE.. Original Note: PATIENT REMAINS IN THE HOSPITAL BUT DR MCDERMOTT STATED AFTER ROUNDING THIS MORNING PATIENT SEEMS TO BE A LOT BETTER AND WISHES TO GO HOME [facility]... IF ANY HOME CARE IS NEEDED IN THE AM WHEN DISCHARGED, I WILL SET UP ANYTHING THAT IS ORDERED. PATIENT DOES NOT WISH TO GO ANYWHERE AT THIS TIME....
--- NOTE | 2020-02-16 08:00 | US_ITS ---
PROCEDURE: US ABDOMEN COMPLETE CLINICAL INDICATION: nausea, abnl lft's, r/o gb disease COMPARISON: No exams were available for comparison FINDINGS: PANCREAS: Pancreas is not well delineated due to overlying bowel gas. CT or MRI without and with contrast with pancreatic protocol may provide further evaluation if clinically desired. LIVER: Fatty infiltration. RIGHT KIDNEY: Unremarkable. Normal size and echogenicity. No hydronephrosis LEFT KIDNEY: No hydronephrosis GALLBLADDER: Mildly distended with mildly thickened wall measuring up to 7 mm with a small amount of pericholecystic fluid.No obvious stones or biliary dilatation AORTA: No evidence of aneurysmal dilatation. SPLEEN: Unremarkable. Normal size and echogenicity 13cm cystic lesion mid abdomen etiology indeterminant, rec CT with IV and oral contrast for further evaluation. IMPRESSION: 13cm cystic lesion mid abdomen etiology indeterminant, rec CT with IV and oral contrast for further evaluation. Distended gallbladder with thickened wall and with pericholecystic fluid Non diagnostic evaluation of liver and pancreas Dictated by: Alex Diez MD 02/16/2020 15:33 Electronically signed by Alex Diez MD in [place] 02/16/2020 15:33
[2020-02-16 11:06] LABS: POC Glucose,Bedside 231 (70-110)
--- NOTE | 2020-02-16 13:49 | DIET.NUTRFU ---
Pt with 50% intakes- he is a picky eater and doesnt like health food, he has been requesting glucerna with meals. Diet education has been given on importance of adherence to a diabetic diet/controlling carbohydrate intake. Education also provided for eating with thrush and importance of avoiding high sugar foods with thrush. BG have been moderate-high t/o stay- ~250, weight has remained stable. Will continue to monitor.
[2020-02-16 16:20] LABS: POC Glucose,Bedside 293 (70-110)
--- NOTE | 2020-02-16 18:48 | PC.NURSE ---
PT IS SITTING UP IN THE CHAIR. NO COMPLAINTS OF DISCOMFORT. ALERT AND ORIENTED X4. EATING AND DRINKING WELL. LUNG SOUNDS DIMINISHED. BOWEL SOUNDS NORMAL. 1+ PITTING EDEMA NOTED TO BLE. VSS. O2 SATURATION HAS MAINTAINED 90-95% ON 2 L NC. WILL CONTINUE TO MONITOR.
--- NOTE | 2020-02-16 19:12 | PC.NURSE ---
report given to nunu
[2020-02-16 21:05] LABS: POC Glucose,Bedside 324 (70-110)
--- NOTE | 2020-02-16 23:42 | PC.NURSE ---
RT monitored pt during RA sat at rest=75%, placed pt on Bipap 40% after RA sat was taken
[2020-02-17] VITALS (11 sets, daily range): BP systolic 132–147; BP diastolic 70–91; PULSE 81–93; RESP 16–20; TEMP 36.4–36.9; O2SAT 89–99; BMI 44.6
[2020-02-17 05:54] LABS: POC Glucose,Bedside 244 (70-110)
[2020-02-17 06:47] LABS: Chloride 98 mmol/L (98-107)
[2020-02-17 06:48] LABS: Potassium 3.2 mmoL/L (3.5-5.1); Sodium 137 mmol/L (136-145)
[2020-02-17 06:50] LABS: Alanine Aminotransferase 33 U/L (12-78); Alkaline Phosphatase 262 U/L (38-126); Aspartate Amino Transferase 35 U/L (17-59); Bilirubin,Total 0.5 mg/dl (0.2-1.3); Blood Urea Nitrogen 21 mg/dl (9-20); Creatinine Clearance Estimated 86 mL/min (50-200); Estimated Glomerular Filt Rate 84 ml/min (>60); GFR (African American) 102 ML/MIN (>60)
[2020-02-17 06:51] LABS: Albumin Level 2.6 g/dl (3.5-5.0); Albumin/Globulin Ratio 0.7 (1.1-1.8); Anion Gap 10.2 mEq/L (5-15); Calcium 7.9 mg/dl (8.4-10.2); Carbon Dioxide 32 mmol/L (22.0-30.0); Globulin 3.7 g/dL (1.3-3.2); Glucose 260 mg/dl (74-100); Total Protein,Serum 6.3 g/dl (6.3-8.2)
[2020-02-17 06:58] LABS: Basophils # 0.1 K/mm3 (0-0.2); Basophils % 0.7 % (0.1-2.0); Eosinophils # 0.4 K/mm3 (0.0-0.4); Eosinophils % 2.7 % (0.1-12.0); Hemoglobin 10.3 g/dL (14.1-18.0); Lymphocytes # 2.3 K/mm3 (0.7-4.5); Lymphocytes % 16.5 % (10-50); Mean Corpuscular HGB Conc 32.3 g/dL (31.8-35.4); Mean Corpuscular Hemoglobin 27.6 pg (27.0-31.2); Mean Corpuscular Volume 85.6 fl (80-94); Mean Platelet Volume 8.2 fl (7.4-10.4); Monocytes # 0.7 K/mm3 (0.1-1.0); Monocytes % 4.7 % (1.7-9.3); Neutrophils # 10.5 K/mm3 (1.8-7.8); Neutrophils % 75.4 % (37.0-80.0); Platelet Count 238 K/mm3 (142-424); Red Blood Count 3.74 M/mm3 (4.60-6.20); Red Cell Distribution Width 14.6 % (11.5-17.5)
--- NOTE | 2020-02-17 07:07 | HMH.ACPN2 ---
Internal Medicine - PN: Subj *Date: 02/17/20 *Time: 07:07 Interval history: Patient had an uneventful day and evening. He reports continued small improvements in his shortness of breath. He has been in a negative fluid balance over the last 24 hours after IV Lasix. He continues to require supplemental during the day and CPAP at night. CT scan performed yesterday reveals an enlarged gallbladder with pericholecystic fluid and a mid abdominal cystic mass. Exam Vital signs and Labs for Last 24 Hours: Temp Pulse Resp BP Pulse Ox 97.5 F L 93 H 18 147/80 H 99 02/17/20 04:00 02/17/20 06:07 02/17/20 04:00 02/17/20 04:00 02/17/20 04:00 Laboratory Results - last 24 hr 02/16/20 10:50: POC Glucose 231 H 02/16/20 15:34: POC Glucose 293 H 02/16/20 20:55: POC Glucose 324 H* 02/17/20 05:45: POC Glucose 244 H 02/17/20 05:51: WBC 14.0 H, RBC 3.74 L, Hgb 10.3 L, Hct 32.0 L, MCV 85.6, MCH 27.6, MCHC 32.3, RDW 14.6, Plt Count 238, MPV 8.2, Neut % (Auto) 75.4, Lymph % (Auto) 16.5, [place] % (Auto) 4.7, Eos % (Auto) 2.7, Baso % (Auto) 0.7, Neut # (Auto) 10.5 H, Lymph # (Auto) 2.3, [place] # (Auto) 0.7, Eos # (Auto) 0.4, Baso # (Auto) 0.1 02/17/20 05:51: Sodium 137, Potassium 3.2 L, Chloride 98, Carbon Dioxide 32 H D, Anion Gap 10.2, BUN 21 H, Creatinine 0.90, Estimated Creat Clear 86, Estimated GFR 84, Est GFR ( Amer) 102 D, Glucose 260 H, Calcium 7.9 L, Total Bilirubin 0.5, AST 35, ALT 33 D, Alkaline Phosphatase 262 H, Total Protein 6.3, Albumin 2.6 L, Globulin 3.7 H, Albumin/Globulin Ratio 0.7 L I & O for Last 24 hours: Intake & Output 02/14/20 02/15/20 02/16/20 02/17/20 11:59 11:59 11:59 11:59 Intake Total 2477 / 2477 1800 / 1800 1710 / 1710 Output Total 2550 / 2550 1600 / 1600 1650 / 1650 1999 Balance -73 / -73 200 / 200 60 / 60 -1999 Weight 366 lb 4 oz 370 lb 8 oz 372 lb 10.887 oz 358 lb 9 oz Microbiology Reports for the Last 24 Hours: Microbiology 02/11/20 20:15 Blood Blood Culture - Final NO GROWTH AFTER 5 DAYS 02/11/20 20:15 Blood Blood Culture - Final NO GROWTH AFTER 5 DAYS 02/14/20 15:00 Sputum - Expectorated Sputum Gram Stain - Final 02/14/20 15:00 Sputum - Expectorated Sputum Sputum Culture - Preliminary Yeast Narrative: Patient is resting comfortably in bed in no distress. Lungs reveal good air movement throughout except for the right base with a slightly diminished. Heart has a regular rate and rhythm. Abdomen is obese. Assessment and Plan (1) Pneumonia Current visit: Yes Status: Suspected Qualifiers: Pneumonia type: due to unspecified organism Category: Medical Code(s): J18.9 - Pneumonia, unspecified organism (2) Sepsis Current visit: Yes Status: Suspected Qualifiers: Sepsis type: sepsis due to unspecified organism Severe sepsis acute organ dysfunction type: acute renal failure Acute renal failure type: with acute tubular necrosis Severe sepsis shock status: without septic shock Category: Medical Code(s): A41.9 - Sepsis, unspecified organism (3) Type 2 diabetes mellitus with hyperglycemia Current visit: Yes Status: Chronic Qualifiers: Diabetes mellitus intermediate insulin use: with lawn mower use Qualified Code(s): E11.65 - Type 2 diabetes mellitus with hyperglycemia; Z79.4 - prison (current) use of insulin Category: Medical Code(s): E11.65 - Type 2 diabetes mellitus with hyperglycemia (4) Hypertension Current visit: Yes Status: Chronic Qualifiers: Hypertension type: essential hypertension Qualified Code(s): I10 - Essential (primary) hypertension Category: Medical Code(s): I10 - Essential (primary) hypertension (5) Abnormal liver function Current visit: Yes Status: Acute Category: Medical Code(s): R94.5 - Abnormal results of liver function studies (6) Morbid obesity Current visit: Yes Status:
--- NOTE | 2020-02-17 07:39 | PC.NURSE ---
Dr. Rdz notified about consult.
--- NOTE | 2020-02-17 09:31 | PC.NURSE ---
PER MD MCDERMOTT- CANCEL NPO ORDER. PT ALLOWED TO EAT
--- NOTE | 2020-02-17 11:11 | SW/DCPLANNER ---
Addendum entered by Rebeca Young 02/18/20 07:33: PATIENT WAS DECLINED AN ADMISSION TO [facility] STATING THEY CAN NOT MEET HIS NEEDS.... I HAVE SENT A REFERRAL TO [facility] AND WAITING TO SEE IF THEY CAN ACCEPT HIM...HE IS READY FOR A DISPOSITION.. Original Note: FAXED PATIENT INFORMATION TO [facility] TO SEE IF THEY HAVE A BED AVAILABLE FOR HIM... I HAVE SPOKEN WITH MELINA THIS MORNING AND SHE STATED SHE WOULD BE UP LATER IN THE DAY TO SEE PATIENT AND EVALUATE HIM FOR SKILLED REHAB PLACEMENT... IF ACCEPTED HE WILL BE READY IN THE AM PENDING NO SETBACKS...
[2020-02-17 11:43] LABS: POC Glucose,Bedside 365 (70-110)
--- NOTE | 2020-02-17 12:33 | HMH.GSCON ---
*Admission Date: 02/10/20 *Reason for consult:: Enlarged gallbladder *History of present illness: Patient is a 69-year-old male whom I am asked to see in consultation from Dr. Lenard Ocampo for abnormal gallbladder on ultrasound. He is a chronically debilitated morbidly obese male with several medical issues who was admitted 7 days ago after he had sustained a fall at home. This was preceded by some shortness of breath and chest pains. He was diagnosed with possible sepsis and urinary tract infection in the emergency department and arrangements were made for admission. His hospital stay had been characterized by some transient clinical deterioration. Of note, the patient has been treated for right lower lobe pneumonia. During his hospitalization he had been noted to have elevation of alkaline phosphatase with transient elevation of AST to 113. ALT has been normal and bilirubin has been normal. He then underwent gallbladder ultrasound which revealed evidence of gallbladder wall thickening without stones with possible pericholecystic fluid. There was also noted to be cystic lesion in the mid abdomen measuring [address] scan with contrast was recommended. However, patient's weight exceeds ability of the CT scanner therefore this was unable to be performed. Surgical consultation was obtained. At this time the patient states that he feels better than he has in quite some time. Review of Systems - Review of Systems Review of systems:: pertinent systems reviewed and negative unless documented below - *Neurologic Reports frequent falls, Reports weakness, Denies dizziness, Denies headache(s), Denies memory loss, Denies numbness, Denies tingling, Denies dizziness [facility] History Medical History: Reports:: Diabetes Mellitus Type 1, Diabetes Mellitus Type 2, Hyperlipidemia, Hypertension Denies:: Internal Pacemaker *Have you ever received a pneumonia vaccine?: Yes *Have you received a flu vaccine this season?: Yes Other Surgeries: No: Pacemaker - *Social History Last grade of school completed: High school graduate Smoking Status: Never smoker Alcohol Intake: never Substance Use Type: denies use *Occupational Status:: retired Housing: house *Travel in the last 8 weeks: None Family Hx:: No significant family history Meds Home Medications Medication Instructions Recorded Confirmed Type bisoprolol fumarate 10 mg tablet 10 mg PO BID 07/04/18 02/11/20 History cyclobenzaprine 10 mg tablet 10 mg PO TID 07/04/18 02/10/20 History lisinopril 20 mg tablet 20 mg PO DAILY 07/04/18 02/10/20 History Metformin HCl [Metformin 850mg 850 mg PO TID 02/10/20 02/10/20 History Tablet] Atorvastatin Calcium [Lipitor 80mg 80 mg PO HS 02/11/20 02/11/20 History Tab] Insulin Lispro [HumaLOG 100 50 unit SQ AC 02/11/20 02/11/20 History units/mL 3mL vial (SSI)] Insulin NPH Human Isophane 100 units SQ BID 02/11/20 02/11/20 History [Humulin N] Allergies Allergy/AdvReac Type Severity Reaction Status Date / Time No Known Allergies Allergy Verified 07/03/19 11:36 Exam Vital signs and Labs for Last 24 Hours: Temp Pulse Resp BP Pulse Ox 97.7 F 84 18 136/91 H 89 L 02/17/20 08:00 02/17/20 10:15 02/17/20 08:00 02/17/20 08:00 02/17/20 10:15 Laboratory Results - last 24 hr 02/16/20 15:34: POC Glucose 293 H 02/16/20 20:55: POC Glucose 324 H* 02/17/20 05:45: POC Glucose 244 H 02/17/20 05:51: WBC 14.0 H, RBC 3.74 L, Hgb 10.3 L, Hct 32.0 L, MCV 85.6, MCH 27.6, MCHC 32.3, RDW 14.6, Plt Count 238, MPV 8.2, Neut % (Auto) 75.4, Lymph % (Auto) 16.5, [place] % (Auto) 4.7, Eos % (Auto) 2.7, Baso % (Auto) 0.7, Neut # (Auto) 10.5 H, Lymph # (Auto) 2.3, [place] # (Auto) 0.7, Eos # (Auto) 0.4, Baso # (Auto) 0.1 02/17/20 05:51: Sodium 137, Potassium 3.2 L, Chloride 98, Carbon Dioxide 32 H D, Anion Gap 10.2, BUN 21 H, Creatinine 0.90, Estimated Creat Clear 86, Estimated GFR 84, Est GFR ( Amer) 102 D, Glucose 260 H, Calcium 7.9 L, Total Bilirubin
[2020-02-17 16:19] LABS: POC Glucose,Bedside 312 (70-110)
--- NOTE | 2020-02-17 17:49 | PC.NURSE ---
pt on RA at the moment with an o2 sat of 91%. no c/o sob. pt ambulated from bed to chair multiple times with one staff member, tolerates well. vss. will cont. to monitor.
--- NOTE | 2020-02-17 18:57 | PC.NURSE ---
spoke with production grader dr. correa regarding the pts resulted UA. he states to ordered recophin 1gm iv now then daily. and to have urine cultured. lab notified of that.
--- NOTE | 2020-02-17 20:24 | PC.NURSE ---
Pt's room air sat at rest = 89%.
[2020-02-17 21:03] LABS: POC Glucose,Bedside 361 (70-110)
[2020-02-18 02:28] VITALS: RESP 16
--- NOTE | 2020-02-18 02:49 | PC.NURSE ---
A&OX4. PT HAS BEEN ON 1L NC WHILE AWAKE AND ON THE BIPAP WHILE SLEEPING THROUGHOUT SHIFT AND TOLERATING WELL. LUNG SOUNDS BILATERALLY CLEAR. NO COUGH NOTED. PT ENCOURAGED TO USE INCENTIVE SPIROMETER 10 TIMES EVERY HOUR WHILE AWAKE. RESPIRATIONS UNLABORED AND REGULAR. ACTIVE BOWEL SOUNDS HEARD IN ALL 4 QUADRANTS. SOFT AND NONTENDER ABDOMEN. PT VOIDS PER URINAL. CLEAR YELLOW URINE NOTED. NO BM THUS FAR. +1 PITTING EDEMA NOTED IN BILATERAL FEET. PT TRANSFERRED FROM THE CHAIR TO THE BED WITH 2 PERSON ASSIST. PT TOLERATED WELL. PT MOVES INDEPENDENTLY IN BED. PT HAS REMAINED AFEBRILE THUS FAR. NO REPORTS OF PAIN. PT IS CURRENTLY LYING IN BED RESTING. CALL LIGHT WITHIN REACH. BED IN LOWEST POSITION. VSS. NO CONCERNS AT THIS TIME. WILL CONTINUE TO MONITOR.
[2020-02-18 04:00] VITALS: BP 149/94; PULSE 86; RESP 19; TEMP 36.8; O2SAT 94
[2020-02-18 04:45] VITALS: BMI 44.6
[2020-02-18 06:04] VITALS: BMI 44.4
[2020-02-18 06:07] VITALS: PULSE 87; PULSE 92
[2020-02-18 06:09] VITALS: RESP 16
[2020-02-18 06:11] LABS: Basophils # 0.1 K/mm3 (0-0.2); Basophils % 0.6 % (0.1-2.0); Eosinophils # 0.5 K/mm3 (0.0-0.4); Eosinophils % 3.5 % (0.1-12.0); Hematocrit 31.9 % (42.0-52.0); Hemoglobin 10.7 g/dL (14.1-18.0); Lymphocytes # 2.6 K/mm3 (0.7-4.5); Lymphocytes % 19.2 % (10-50); Mean Corpuscular HGB Conc 33.7 g/dL (31.8-35.4); Mean Corpuscular Hemoglobin 28.5 pg (27.0-31.2); Mean Corpuscular Volume 84.6 fl (80-94); Mean Platelet Volume 8.4 fl (7.4-10.4); Monocytes # 0.5 K/mm3 (0.1-1.0); Monocytes % 3.8 % (1.7-9.3); Neutrophils # 9.7 K/mm3 (1.8-7.8); Neutrophils % 72.9 % (37.0-80.0); Platelet Count 308 K/mm3 (142-424); Red Blood Count 3.77 M/mm3 (4.60-6.20); Red Cell Distribution Width 14.7 % (11.5-17.5); White Blood Count 13.4 K/mm3 (4.8-10.8)
[2020-02-18 06:13] LABS: Chloride 97 mmol/L (98-107); Potassium 3.2 mmoL/L (3.5-5.1); Sodium 139 mmol/L (136-145)
[2020-02-18 06:16] LABS: Alanine Aminotransferase 27 U/L (12-78); Albumin Level 2.8 g/dl (3.5-5.0); Albumin/Globulin Ratio 0.8 (1.1-1.8); Alkaline Phosphatase 236 U/L (38-126); Anion Gap 11.2 mEq/L (5-15); Aspartate Amino Transferase 25 U/L (17-59); Bilirubin,Total 0.5 mg/dl (0.2-1.3); Blood Urea Nitrogen 18 mg/dl (9-20); Carbon Dioxide 34 mmol/L (22.0-30.0); Creatinine Clearance Estimated 86 mL/min (50-200); Estimated Glomerular Filt Rate 84 ml/min (>60); GFR (African American) 102 ML/MIN (>60); Globulin 3.7 g/dL (1.3-3.2); Total Protein,Serum 6.5 g/dl (6.3-8.2)
[2020-02-18 06:17] LABS: Glucose 236 mg/dl (74-100)
[2020-02-18 07:59] VITALS: BP 139/84; PULSE 98; RESP 22; TEMP 37.1; O2SAT 95
--- NOTE | 2020-02-18 08:12 | HMH.DCSUM ---
General - General Admission date:: 02/10/20 Discharge date: 02/18/20 HPI HPI: 69-year-old male with morbid obesity, uncontrolled diabetes mellitus, hypertension presented to the emergency department after being found down on the floor at home by a friend. Patient reports his illness began on February 06 when he began vomiting. He vomited throughout the day on February 06 and February 07 at which point vomiting ceased. He never developed diarrhea. He had been unable to eat during the entire timeframe and it also includes February 08. Patient was being checked on daily by a friend. The last time she saw him was on February 08. When she came to check on him today she found him down on the floor. Patient had attempted to get out of bed and fallen and was too weak to get up under his own power. Patient was brought to the emergency department. While the patient denies fever and chills his friend supports the idea that he been febrile with chills over the last few days and he was treating himself with hot showers and warm blankets. He denies cough but admits to sinus congestion which is chronic. He admits to urinary frequency. Patient has a history of a urethral stricture and had completed a 10-day course of Cipro for urinary tract infection on February 04. He reports his urine had become clear but he still had dysuria. Work-up in the emergency department revealed an ill-appearing gentleman with an elevated white blood cell count and abnormal urine with gross hematuria on catheterized specimen Hospital Course Hospital Course: Patient was admitted and started on IV Rocephin for presumed UTI. Patient had high fevers and was hypotensive and mental status changes associated with his high fevers.. His hypotension responded to a 3 L fluid bolus and during the first 48 hours of hospitalization he required periodic boluses along with high-volume maintenance fluids of 150 to 200 mL's per hour of normal saline. Patient's home antihypertensives were held the duration of the hospitalization. Patient's urine was abnormal and it was discovered that he had not completed a course of antibiotics for a UTI that the patient had as an outpatient. Within 24 hours of hospitalization patient also developed shortness of breath. Initial chest x-ray was a poor film with low lung volumes due to poor inspiration. Repeat chest x-ray confirmed a right lower lobe pneumonia. Ultimately urine and blood cultures were both negative x2. Patient did develop hypoxia that required supplemental oxygen. First night of admission patient was also witnessed having prolonged episodes of apnea with the longest being approximately 40 seconds. At that point patient was started on CPAP which he continued nightly during his hospitalization. Once his pneumonia was identified azithromycin was added to his Rocephin. Patient remained on azithromycin and Rocephin for the remainder of hospitalization and had completed 8 days of Rocephin at discharge and 6 days of azithromycin. White count was followed daily. And at discharge was 13.4.. At discharge dyspnea had improved although he still required supplemental oxygen due to both hypoxia at rest during the day and his hypoxia at night from his sleep apnea. Patient was quite weak from his illness and was evaluated by physical therapy. He was appropriate for nursing home level of care so placement for rehabilitation was sought. Patient is a diabetic and because of the level of illness he was kept on high intensity sliding scale insulin the duration of his hospitalization. Patient will resume home dosing of insulin at discharge. Patient had nausea associated with his illness. Abdominal ultrasound showed some pericholecystic fluid and an enlarged gallbladder. Surgery was consulted but did not feel like there was any acute on chronic cholecystitis and no surgery was recommended. On abdominal ultrasound patient also had a cystic mass in the abdomen whic
[2020-02-18 10:05] VITALS: PULSE 89; PULSE 91; O2SAT 95
--- NOTE | 2020-02-18 13:37 | PC.NURSE ---
THIS RN PROVIDED EDUCATION IN REGARDS TO REASON FOR LASIX, PATIENT HAD 500 ML OF URINE OUTPUT BEFORE DISCHARGE TO [facility]. THIS RN PROVIDED REPORT TO [facility]. THIS RN PROVIDED HAND OFF TO AMBULANCE PERSONAL. NO OTHER NEEDS OR CONCERNS AT THIS TIME.
[2020-02-19 03:36] LABS: POC Glucose,Bedside 223 (70-110)
== END 2020-02-18 11:48 | disposition home or self-care (01) | DRG 193 ==
LOC: ER 14:46 → 2ND 15:38
PROVIDERS: Emergency Medicine; Internal Medicine Adolescent Medicine; Admitting Provider Family Medicine; Emergency Provider Emergency Medicine; PCP Family Medicine; Visit Provider Family Medicine
DX: J18.9 Pneumonia, unspecified organism (principal); A41.9 Sepsis, unspecified organism; Z68.41 Body mass index [BMI] 40.0-44.9, adult; E66.01 Morbid (severe) obesity due to excess calories; I10 Essential (primary) hypertension; G47.33 Obstructive sleep apnea (adult) (pediatric); Z79.4 Long term (current) use of insulin; E11.65 Type 2 diabetes mellitus with hyperglycemia
CPT/HCPCS: 94660; 36415; 71045; 76700; 80048; 80053; 80074; 80076; 81001; 82550; 82570; 82803; 82962; 83605; 83690; 83735; 83880; 84484; 85007; 85025; 87040; 87070; 87086; 87205; 87581; 87633; 87798; 93005; 93306; 94640; 94760; 94761; 96365; 96367; 97110; 97162; 97165; 97530; 99284; 99285; J0456; J1335; J2020; J2405

== ENCOUNTER 2022-07-30 13:30 | Inpatient (IN) | payer MEDICARE, SELFPAY ==
[2022-07-30] VITALS (11 sets, daily range): BP systolic 112–156; BP diastolic 58–95; PULSE 69–105; RESP 16–20; TEMP 36.6–36.7; O2SAT 93–99; BMI 43.7; BMI 43.3
--- NOTE | 2022-07-30 14:03 | CT_ITS ---
PROCEDURE INFORMATION: Exam: CT Head Without Contrast Exam date and time: 07/30/2022 2:39 PM Age: 71 years old Clinical indication: Syncope and collapse; Additional info: Syncopal episode TECHNIQUE: Imaging protocol: Computed tomography of the head without contrast. Radiation optimization: All CT scans at this facility use at least one of these dose optimization techniques: automated exposure control; mA and/or kV adjustment per patient size (includes targeted exams where dose is matched to clinical indication); or iterative reconstruction. COMPARISON: No relevant prior studies available. FINDINGS: Brain: Normal. No hemorrhage. Chronic age-related periventricular white matter changes. Cerebral ventricles: No ventriculomegaly. Paranasal sinuses: Mild mucosal thickening of paranasal sinuses and maxillary sinuses. Mastoid air cells: Visualized mastoid air cells are well aerated. Bones/joints: Unremarkable. No acute fracture. Soft tissues: Unremarkable. IMPRESSION: No acute intracranial abnormality. Chronic sinus congestion.
--- NOTE | 2022-07-30 14:03 | XR_ITS ---
PROCEDURE INFORMATION: Exam: XR Chest Exam date and time: 07/30/2022 2:56 PM Age: 71 years old Clinical indication: Other: Syncopal episode TECHNIQUE: Imaging protocol: Radiologic exam of the chest. Views: 1 view. COMPARISON: SD XR CHEST PORTABLE 02/13/2020 1:27 AM FINDINGS: Lungs: Unremarkable. No consolidation. Pleural spaces: Unremarkable. No pleural effusion. No pneumothorax. Heart/Mediastinum: Unremarkable. No cardiomegaly. Bones/joints: Unremarkable. IMPRESSION: No acute findings.
[2022-07-30 14:20] LABS: Basophils # 0.2 K/mm3 (0-0.2); Eosinophils # 0.2 K/mm3 (0.0-0.4); Eosinophils % 2.7 % (0.1-12.0); Hematocrit 45.8 % (42.0-52.0); Hemoglobin 15.2 g/dL (14.1-18.0); Lymphocytes # 2.2 K/mm3 (0.7-4.5); Lymphocytes % 26.7 % (10-50); Mean Corpuscular HGB Conc 33.2 g/dL (31.8-35.4); Mean Corpuscular Hemoglobin 28.6 pg (27.0-31.2); Mean Corpuscular Volume 86.4 fl (80-94); Mean Platelet Volume 8.5 fl (7.4-10.4); Monocytes # 0.5 K/mm3 (0.1-1.0); Monocytes % 6.2 % (1.7-9.3); Neutrophils # 5.2 K/mm3 (1.8-7.8); Neutrophils % 62.4 % (37.0-80.0); Platelet Count 279 K/mm3 (142-424); Red Blood Count 5.31 M/mm3 (4.60-6.20); Red Cell Distribution Width 13.7 % (11.5-17.5); White Blood Count 8.4 K/mm3 (4.8-10.8)
[2022-07-30 14:25] LABS: Chloride 99 mmol/L (98-107); Sodium 135 mmol/L (136-145)
[2022-07-30 14:26] LABS: Potassium 5.2 mmoL/L (3.5-5.1)
[2022-07-30 14:28] LABS: Alanine Aminotransferase 39 U/L (12-78); Albumin Level 4.3 g/dl (3.5-5.0); Alkaline Phosphatase 68 U/L (38-126); Anion Gap 17.2 mEq/L (5-15); Aspartate Amino Transferase 82 U/L (17-59); Blood Urea Nitrogen 32 mg/dl (9-20); Calcium 8.3 mg/dl (8.4-10.2); Carbon Dioxide 24 mmol/L (22.0-30.0); Creatine Kinase 1550 U/L (55-170); Creatinine Clearance Estimated 69 mL/min (50-200); Estimated Glomerular Filt Rate 60 ml/min (>60); GFR (African American) 73 ML/MIN (>60); Globulin 4.2 g/dL (1.3-3.2); Glucose 192 mg/dl (74-100); Total Protein,Serum 8.5 g/dl (6.3-8.2)
[2022-07-30 14:29] LABS: Magnesium 1.9 mg/dl (1.6-2.3)
[2022-07-30 14:41] LABS: Troponin I 0.02 ng/ml (0.00-0.034)
[2022-07-30 15:33] LABS: VBG Base Excess -4.1 mmol/L (-2.4-2.3); VBG HCO3 21.5 mmol/L (23-30); VBG Oxygen Saturation 89.7 % (50-70); VBG PCO2 39.5 mmol/L (35-51); VBG PH 7.35 mmol/L (7.31-7.41); VBG PO2 61.9 mmol/L (28-40); VBG Total CO2 22.7 mmol/L (23-27)
[2022-07-30 15:36] LABS: Acetone, Serum (Rapid) None Detected (None Detect)
--- NOTE | 2022-07-30 15:51 | PC.NURSE ---
spoke with graciela about admission
[2022-07-30 16:14] LABS: Influenza A, PCR Not Detected (NotDetected); Influenza B, PCR Not Detected (NotDetected)
[2022-07-30 16:57] LABS: Coronavirus 19, PCR Detected (NotDetected)
--- NOTE | 2022-07-30 17:15 | PC.NURSE ---
Louis @ helping set up patient's food tray
--- NOTE | 2022-07-30 17:45 | PC.NURSE ---
report called to Deepthi ZAPATA
[2022-07-30 18:07] LABS: Troponin I 0.02 ng/ml (0.00-0.034)
--- NOTE | 2022-07-30 18:08 | PC.NURSE ---
arrived to floor by stretcher from ED
--- NOTE | 2022-07-30 19:40 | EXP.HP ---
History of Present Illness *Admission Date: 07/30/22 *Reason for visit:: LOC, Syncope, Weakness *History of present illness: Mr. Clark is a 71-year-old male with a past medical history of DM, HTN, Hyperlipidemia, obesity and immobility due to bilateral knee pain, transfers self to scooter. He presents to [facility] due to LOC that he reports occurred 2 days prior to presentation. The patient was seen following admission to the floor. He reports that he got home from a trip from [place] three days ago, he reports that the day following his trip he became extremely weak and fell in the floor. He reports that he laid on the floor approximately 40 hours before calling 911. He denies hitting head or any pain, he reports continued weakness. In the ER the patient underwent a CT of the head that showed no acute intracranial abnormalities, Troponin was within normal limits at 0.2, EKG showed NSR with no ST segment elevation or depression. CBC was unremarkable. CMP showed a slightly elevated creatinine at 1.20. CK was elevateted at 1550, Covid was positive. VBG showed a Anion Gap Metabolic Acidosis. On exam the patient is neurologically intact with only complaint weakness. The patient will be admitted with initial impression: Syncope with LOC and Rhabdomylosis. He will be given fluids, neuro checks performed. PT will be consulted to see the patient. The plan of care was discussed with the patient in length and detail on admission at bedside. The patient verbalized understanding and agreement with the plan of care. [facility] Disclaimer: The information contained in this section may have been updated after the patient was seen, as this information can be updated by other users. Medical History (Updated 07/30/22 @ 20:09 by Ian Montenegro DNP) Diabetes Falls Hyperlipidemia Hypertension Immobility Surgical History (Updated 07/30/22 @ 19:49 by Ian Montenegro DNP) History of bilateral knee replacement Social History Smoking Status: Light tobacco smoker alcohol intake: never substance use type: denies use current occupational status: retired Travel in the last 8 weeks: None housing: house Review of Systems Review of Systems Review of systems:: pertinent systems reviewed and negative unless documented below Constitutional Constitutional: Reports system reviewed and no additional complaints, except as documented and Reports frequent falls Eyes Eyes: Reports system reviewed and no additional complaints, except as documented ENT Ears, Nose, Mouth, and Throat: Reports system reviewed and no additional complaints, except as documented and Reports vertigo *Cardiovascular Cardiovascular: Reports system reviewed and no additional complaints, except as documented *Respiratory Respiratory: Reports system reviewed and no additional complaints, except as documented *Gastrointestinal Gastrointestinal: Reports system reviewed and no additional complaints, except as documented *Genitourinary Genitourinary: Reports system reviewed and no additional complaints, except as documented *Musculoskeletal Musculoskeletal: Reports abnormal gait, Reports muscle weakness and Reports myalgias *Neurologic Neurologic: Reports abnormal gait, Reports confusion, Reports frequent falls and Reports vertigo Psychiatric Psychiatric: Reports system reviewed and no additional complaints, except as documented and Reports confusion Endocrine Endocrine: Reports system reviewed and no additional complaints, except as documented Allergic/Immunologic Allergic/Immunologic: Reports system reviewed and no additional complaints, except as documented Meds Home Medications and Allergies Home Medications Medication Instructions Recorded Confirmed Type bisoprolol fumarate 10 mg tablet 10 mg PO BID Hypertension 07/04/18 05/28/20 History lisinopril 20 mg tablet 20 mg PO DAILY Hypertension 07/04/1805/28
[2022-07-30 21:51] LABS: Troponin I 0.02 ng/ml (0.00-0.034)
[2022-07-30 22:34] LABS: POC Glucose,Bedside 230 (70-110)
--- NOTE | 2022-07-30 23:10 | HMH.EDGENADL ---
Discharge Plan Disposition Patient Disposition: Admitted As Inpatient Clinical Impressions Clinical Impression: Debility, unspecified, Fall, Acute hyponatremia, Syncope Discharge ED Provider: Chidi Pablo Adult HPI General Chief complaint: Weakness Stated complaint: fall Time Seen by Provider: 07/30/22 17:13 Mode of Arrival: EMS Source of Information: Patient Limitations: No Limitations Description of Symptoms (Recalled from ER Triage Doc. by RN): c/o falling over the past few weeks with hip pain. PER EMS they get called out to this pt multi times, pt usually will fall and then lay in the floor for a while before calling EMS and pt usually will not come to be evaluated. History of Present Illness HPI narrative: Patient presents for evaluation of frequent falls. Patient has fallen multiple times over the last week and today called EMS after awakening on the ground covered in feces. Patient says he is unsure exactly how long he was out. He also fell yesterday and was down for multiple hours before calling EMS to help him get up. Patient does not member falling this time. Concerns for syncopal episode. Related Data Home Medications Medication Instructions Recorded Confirmed bisoprolol fumarate 10 mg tablet 10 mg PO BID Hypertension 07/04/18 05/28/20 lisinopril 20 mg tablet 20 mg PO DAILY Hypertension 07/04/18 05/28/20 metformin 850 mg tablet 850 mg PO TID Diabetes 02/10/20 05/28/20 atorvastatin 80 mg tablet 80 mg PO HS Cholesterol 02/11/20 05/28/20 insulin NPH isoph U-100 human 100 100 units SQ BID Diabetes 02/11/20 05/28/20 unit/mL subcutaneous suspension insulin lispro 100 unit/mL 50 unit SQ AC Diabetes 02/11/20 05/28/20 subcutaneous solution Previous Rx's Medication Instructions Recorded fluconazole 200 mg tablet 200 mg PO DAILY #5 tabs 02/18/20 levofloxacin 750 mg tablet 750 mg PO DAILY #5 tabs 02/18/20 Allergies Allergy/AdvReac Type Severity Reaction Status Date / Time diatrizoate meglumine Allergy Intermediate Rash Verified 05/28/20 13:03 [From Gastrografin] diatrizoate sodium Allergy Intermediate Rash Verified 05/28/20 13:03 [From Gastrografin] [facility] Disclaimer: The information contained in this section may have been updated after the patient was seen, as this information can be updated by other users. Medical History (Updated 07/30/22 @ 20:09 by Ian Montenegro DNP) Diabetes Falls Hyperlipidemia Hypertension Immobility Surgical History (Updated 07/30/22 @ 19:49 by Ian Montenegro DNP) History of bilateral knee replacement Social History Smoking Status: Light tobacco smoker alcohol intake: never substance use type: denies use current occupational status: retired Travel in the last 8 weeks: None housing: house ROS Obtained: Yes Systems reviewed as appropriate & no additional complaints except as documented Physical Exam General General appearance: alert and in no apparent distress Head Head exam: atraumatic and normocephalic Eye Eye exam: Present normal appearance and EOMI Respiratory Respiratory exam: Present normal lung sounds bilaterally Cardiovascular Cardiovascular exam: Present normal rhythm and tachycardia Neurological Exam Neurological exam: Present alert and oriented X3 Medical Decision Making Medical Records Medical records reviewed: Yes I reviewed the patient's medical records. Gurinder Inquiry Pt receiving controlled substance: No Vital Signs: 07/30/22 13:31 07/30/22 14:30 07/30/22 15:00 Temperature Temperature Source Pulse Rate 91 H 91 H Pulse Rate [Left Radial] 94 H Respiratory Rate 18 20 20 Blood Pressure 148/79 H 144/65 H Blood Pressure [Right Arm] 138/95 H Blood Pressure Mean 102 97 Blood Pressure Mean [Right Arm] 109 Blood Pressure Source [Right Arm] Automatic Cuff Blood Pressure Position [Right Arm] Sitting 02 Sat by Pulse Ox
[2022-07-30 23:12] LABS: Amphetamine/Metha Screen,Urine Negative ng/ml (<1000); Benzodiazepines Screen,Urine Negative ng/ml (<200)
[2022-07-30 23:13] LABS: Barbiturates Screen,Urine Negative ng/ml (<200)
[2022-07-30 23:14] LABS: Cannabinoid Screen,Urine Negative ng/ml (<50); Cocaine Screen,Urine Negative ng/ml (<300)
[2022-07-30 23:15] LABS: Methadone Screen,Urine Negative ng/ml (<300)
[2022-07-30 23:16] LABS: Opiate Screen,Urine Negative ng/ml (<300); Phencyclidine Screen,Urine Negative ng/ml (<25)
[2022-07-30 23:39] LABS: Anion Gap 13.9 mEq/L (5-15); Blood Urea Nitrogen 37 mg/dl (9-20); Calcium 7.7 mg/dl (8.4-10.2); Carbon Dioxide 21 mmol/L (22.0-30.0); Chloride 103 mmol/L (98-107); Creatine Kinase 1301 U/L (55-170); Creatinine Clearance Estimated 76 mL/min (50-200); Estimated Glomerular Filt Rate 66 ml/min (>60); GFR (African American) 80 ML/MIN (>60); Glucose 225 mg/dl (74-100); Potassium 3.9 mmoL/L (3.5-5.1); Sodium 134 mmol/L (136-145)
[2022-07-31] VITALS (10 sets, daily range): BP systolic 111–156; BP diastolic 44–88; PULSE 67–100; RESP 16–19; TEMP 36.6–37; O2SAT 95–99; BMI 43.4
[2022-07-31 06:53] LABS: POC Glucose,Bedside 222 (70-110)
[2022-07-31 07:16] LABS: Anion Gap 10.9 mEq/L (5-15); Blood Urea Nitrogen 28 mg/dl (9-20); Calcium 7.8 mg/dl (8.4-10.2); Carbon Dioxide 22 mmol/L (22.0-30.0); Chloride 107 mmol/L (98-107); Creatine Kinase 1122 U/L (55-170); Creatinine Clearance Estimated 83 mL/min (50-200); Estimated Glomerular Filt Rate 84 ml/min (>60); GFR (African American) 101 ML/MIN (>60); Glucose 211 mg/dl (74-100); Potassium 3.9 mmoL/L (3.5-5.1); Sodium 136 mmol/L (136-145)
--- NOTE | 2022-07-31 07:34 | PC.NURSE ---
No c/o voiced to staff. Tolerating RA well with sats >90%. Call light within reach.
--- NOTE | 2022-07-31 08:46 | HMH.PHAINT1 ---
Pharmacy Intervention Comments: Home medication list verified via patient interview and list from outside pharmacy. -Evelyne Mantilla, PharmD Candidate 2022
--- NOTE | 2022-07-31 09:12 | CA_ITS ---
APPROVED REPORT EXAM: Comprehensive 2D, Doppler, and color-flow Echocardiogram Type Copy Examiner: TITI Erwin, RVS Ht: 6 ft 3 in Wt: 350lbs BSA: 2.78 BP: 142/73 mmHg Indications: Covid, syncopeMorbid obesity, DM, HTN, HLD, Smoker Echo Enhancing Agent Comments: Technically difficult exam due to extreme body habitus. 2D Dimensions IVSd 1.27 cm M: 0.6-1.2 LVEF (Visual) 72.70 % PWd 1.64 cm M: 0.6 - 1.2 LA Volume 102.10 mL LVDd 5.72 cm M: 4.2 - 5.9 LA Volume Index 36.214294 mL/m2 (M/F) 16-34 LVDs 3.30 cm M: 2.5 - 4.0 Aortic Root 3.63 cm M: 3.1 - 3.7 Left Atrium 4.25 cm M: 3.0 - 4.0 LVOT 2.11 cm (M/F) 1.5-2.5 M-Mode Dimensions LA Diam 4.28 cm (1.9-4.0) Ao Diam 3.86 cm (2.0-3.7) EPSs 1.13 cm TAPSE 3.06 (<1.7) LV Diastology E Decel Time 223.00 (160-240 msec) E/A Ratio 1.18 MED E' 6.00 (< 7 cm/sec) MED A' 9.10 cm/s E'/MED E' Ratio 15.32 (>14) LAT E' 7.60 (<10 cm/sec) LAT A' 7.30 cm/s E/LAT E' Ratio 12.09 (>14) Aortic Valve LVOT Max 83.00 (70-110 cm/s) LVOT VTI 16.92 cm AoV Peak Kevin. 131.00 (50-130 cm/s) AO Peak GR. 6.90 mmHg AO Mean GR. 3.50 (<5 mmHg) AO VTI 23.35 (18-25 cm) MARILYNN (VTI) 2.53 (2.5-4.5 cm2) Mitral Valve MV A Velocity 78.00 (40-130 cm/s) E/A Ratio 1.18 MV Decel. Time 223.00 (160-240 ms) MV PHT 67.00 ms Pulmonary Valve PV Peak Velocity 91.00 (50-150 cm/s) Tricuspid Valve TR P. Velocity 122.00 cm/s RAP Estimate 10.00 mmHg RVSP 16.00 mmHg Left Ventricle Technically difficult study because of the patient factors and poor acoustic windows. Left atrium is mildly enlarged, left ventricle is normal size mild concentric left ventricular hypertrophy, estimated ejection fraction 55% with no regional wall motion abnormality, diastolic parameters are inconclusive. Right Ventricle Right atrium and right ventricle are mildly enlarged with normal contractility. Aortic Valve Aortic valve is thickened and calcified without aortic stenosis or aortic insufficiency. Mitral Valve Mitral valve is grossly normal, there is trace mitral regurgitation. Tricuspid Valve Tricuspid grossly normal, there is trace tricuspid regurgitation, tricuspid regurgitation jet velocity is inadequate for calculation of the right ventricular systolic pressure. Pulmonic Valve Pulmonic valve is poorly visualized. Great Vessels Aortic root is normal size. Inferior vena cava is poorly visualized. Pericardium No significant pericardial effusion noted. Conclusion 1. Technically difficult study because of the patient factors and poor acoustic windows. 2. Mild biatrial enlargement, normal left ventricular size mild concentric left ventricular hypertrophy, estimated ejection fraction 55% with no regional wall motion abnormality, diastolic parameters are inconclusive. 3. Mildly enlarged right ventricle with normal contractility. 4. Trace mitral and tricuspid regurgitation. 5. No significant pericardial effusion noted. 6. Inferior vena cava is poorly visualized. Electronically signed by : Luis Angel Drake MD 07/31/2022 21:57:26
--- NOTE | 2022-07-31 10:53 | HMH.PTEV ---
Physical Therapy Evaluation Rehab PT IP Evaluation Start: 07/30/22 19:39 Freq: ONCE Status: Active Protocol: Document 07/31/22 09:29 [email or web address] (Rec: 07/31/22 10:52 PHORNE [id number]) Subjective/History History History 71 yowm adm to [facility] with general weakness, rhabdo after fall at home, COVID+. He reports he lives alone, ramp to enter the home, uses a w/c for all mobility and does not walk at baseline. Subjective Subjective He reports, I just feel weak right now. Rehab PT IP Eval Objective Appearance Patient Behavior Appropriate Patient Orientation Person,Place,Time Difficulty following instructions none Speech Pattern Clear Ambulation Patient Able to Ambulate No Balance Ability to Arise Able, uses arms to help Sitting Balance Steady, safe Standing Balance Steady, wide stance Dynamic Sitting Balance Ability Good Dynamic Standing Balance Ability Fair Transfers Bed Transfer Ability Contact Guard/Hand Hold Chair Transfer Ability Minimal x 1 (25% assist) Sit to Stand Bed Transfer Ability Minimal x 1 (25% assist) Sit to Stand Chair Transfer Ability Minimal x 1 (25% assist) ROM All Extremities PT ROM Status WFL MMT All Extremities PT MMT WFL Rehab PT IP prob,goals,plan Problems Date of Evaluation: 07/31/22 PT IP Problems Transfers Rehab Potential Rehab Potential Good Plan PT Intervention Plan Transfers,Therapeutic Exercise PT Plan Frequency Daily Duration LOS Discharge Goals Bed Transfer Ability Supervision/Stand by Sit to Stand Chair Transfer Ability Contact Guard/Hand Hold Discharge Plan PT Discharge Plan Pt is currently appropriate to return home once medcially stable. Recommend home health PT upon d/c. G -code Required No Eval Complexity Eval Charge Codes 83334 - Moderate Complexity PHYSICIAN CERTIFICATION: I certify the specified therapy services for Bry Clark are required, authorized, and reviewed every 30 days.
[2022-07-31 11:06] LABS: Thyroid Stimulating Hormone 1.75 uIU/mL (0.465-4.68)
--- NOTE | 2022-07-31 11:06 | HMH.OTEV ---
OT Inpatient Evaluation Rehab OT IP Evaluation Start: 07/31/22 07:40 Freq: ONCE Status: Active Protocol: Document 07/31/22 10:55 ABE (Rec: 07/31/22 11:06 ABE [id number]) Rehab OT IP Assessment Subjective History Mr. Clark is a 71-year-old male with a past medical history of DM, HTN, Hyperlipidemia, obesity and immobility due to bilateral knee pain, transfers self to [facility]. He presents to [facility] due to LOC that he reports occurred 2 days prior to presentation. The patient was seen following admission to the floor. He reports that he got home from a trip from [place] three days ago, he reports that the day following his trip he became extremely weak and fell in the floor. He reports that he laid on the floor approximately 40 hours before calling 911. He denies hitting head or any pain, he reports continued weakness. In the ER the patient underwent a CT of the head that showed no acute intracranial abnormalities, Troponin was within normal limits at 0.2, EKG showed NSR with no ST segment elevation or depression. CBC was unremarkable. CMP showed a slightly elevated creatinine at 1.20. CK was elevateted at 1550, Covid was positive. VBG showed a Anion Gap Metabolic Acidosis. On exam the patient is neurologically intact with only complaint weakness. The patient will be admitted with initial impression: Syncope with LOC and Rhabdomylosis. He will be given fluids, neuro checks performed. PT will be consulted to se
[2022-07-31 11:31] LABS: POC Glucose,Bedside 239 (70-110)
[2022-07-31 13:47] LABS: Microscopic, Urine URINE MICROSCOPIC (MICROSCOPIC)
[2022-07-31 13:56] LABS: Appearance,Urine SL CLOUDY (Clear); Bilirubin,Urine Negative (Negative); Blood, Urine 2+ (Negative); Color,Urine YELLOW (Yellow); Glucose,Urine (UA) 2+ (Negative); Ketones,Urine 1+ (Negative); Leukocyte Esterase,Urine 1+ (Negative); Nitrate,Urine POSITIVE (Negative); PH,Urine 5.5 (5.0-8.5); Protein,Urine Negative (Negative); Urobilinogen,Urine 0.2 EU/dl (0.2)
[2022-07-31 14:14] LABS: Bacteria,Urine 2+ /lpf; Squamous Epithelial Cell,Urine Occasional #/hpf (0-5); Yeast,Urine 3+ /lpf
--- NOTE | 2022-07-31 14:32 | EXP.ACUTE.PN ---
Subjective *Date: 07/31/22 *Time: 14:32 Interval history: No events overnight. Patient doing well this morning with no concerns or complaints at this time Medical Exam Vital signs and Labs for Last 24 Hours: Vital Signs Temp Pulse Pulse Resp BP BP Pulse Ox 07/31/22 10:49 98.6 F 75 19 136/61 95 07/31/22 07:14 98.0 F 96 H 19 156/88 H 99 07/31/22 04:00 90 07/31/22 04:00 98.2 F 97 H 16 141/68 H 97 07/30/22 22:24 100 H 07/31/22 00:00 100 H 07/30/22 20:00 105 H 97 07/31/22 00:00 98 F 90 16 124/60 97 07/30/22 20:00 97.9 F 94 H 16 126/58 L 98 07/30/22 18:00 101 H 144/76 H 96 07/30/22 17:30 98 H 156/94 H 96 07/30/22 18:00 98 F 101 H 18 144/76 H 07/30/22 18:41 98.1 F 105 H 18 142/73 H 93 L 07/30/22 17:00 93 H 137/81 98 07/30/22 16:31 99 H 112/69 96 07/30/22 16:01 69 133/66 99 07/30/22 15:00 91 H 20 144/65 H 98 Intake and Output 07/30/22 07/31/22 07/31/22 23:59 07:59 15:59 Intake Total 1530 / 1890 360 / 1890 Output Total 150 / 150 400 / 2100 1700 / 2100 Balance -150 / -150 1130 / -210 -1340 / -210 Intake: Intake, Oral Amount 360 / 720 360 / 720 Intake, Total IV Amount 1170 / 1170 0.9 % Sodium Chloride 1,000 ml 1170 / 1170 @ 250 mls/hr IV .Q4H [facility] Rx#: [id number] Output: Output, Urine Amount 150 / 150 400 / 2100 1700 / 2100 Other: Number of Unmeasured Voids 0 Weight 157.4 kg 158.3 kg Patient Weight 07/31/22 23:59 Weight 158.3 kg Laboratory Results - last 24 hr 07/30/22 14:05: WBC 8.4, RBC 5.31, Hgb 15.2, Hct 45.8, MCV 86.4, MCH 28.6, MCHC 33.2, RDW 13.7, Plt Count 279, MPV 8.5, Neut % (Auto) 62.4, Lymph % (Auto) 26.7, [place] % (Auto) 6.2, Eos % (Auto) 2.7, Baso % (Auto) 2.0, Neut # (Auto) 5.2, Lymph # (Auto) 2.2, [place] # (Auto) 0.5, Eos # (Auto) 0.2, Baso # (Auto) 0.2 07/30/22 14:05: Sodium 135 L, Potassium 5.2 H, Chloride 99, Carbon Dioxide 24, Anion Gap 17.2 H, BUN 32 H, Creatinine 1.20, Estimated Creat Clear 69, Estimated GFR 60, Est GFR ( Amer) 73, Glucose 192 H, Calcium 8.3 L, Magnesium 1.9, Total Bilirubin 1.0, AST 82 H, ALT 39, Alkaline Phosphatase 68, Total Creatine Kinase 1550 H*, Troponin I 0.02, Total Protein 8.5 H D, Albumin 4.3, Globulin 4.2 H, Albumin/Globulin Ratio 1.0 L 07/30/22 14:05: Acetone Level None detected 07/30/22 15:16: VBG pH 7.35, VBG pCO2 39.5, VBG pO2 61.9 H, VBG HCO3 21.5 L, VBG Total CO2 22.7 L, VBG O2 Saturation 89.7 H, VBG Base Excess -4.1 L 07/30/22 16:09: SARS-CoV-2 (PCR) Detected A, Influenza A Untype (PCR) Not detected, Influenza Type B (PCR) Not detected 07/30/22 17:30: Troponin I 0.02 07/30/22 20:45: Troponin I 0.02 07/30/22 22:11: POC Glucose 230 H 07/30/22 22:25: Urine Opiates Screen Negative, Urine Methadone Screen Negative, Ur Barbituates Screen Negative, Ur Phencyclidine Scrn Negative, Ur Amphetamines Screen Negative, U Benzodiazepines Scrn Negative, Urine Cocaine Screen Negative, U Marijuana (THC) Screen Negative 07/30/22 23:25: Sodium 134 L, Potassium 3.9 D, Chloride 103, Carbon Dioxide 21 L, Anion Gap 13.9, BUN 37 H, Creatinine 1.10, Estimated Creat Clear 76, Estimated GFR 66, Est GFR ( Amer) 80, Glucose 225 H, Calcium 7.7 L, Total Creatine Kinase 1301 H* 07/31/22 06:43: POC Glucose 222 H 07/31/22 06:49: Sodium 136, Potassium 3.9, Chloride 107, Carbon Dioxide 22, Anion Gap 10.9, BUN 28 H, Creatinine 0.90, Estimated Creat Clear 83, Estimated GFR 84, Est GFR ( Amer) 101 D, Glucose 211 H, Calcium 7.8 L, Total Creatine Kinase 1122 H* 07/31/22 06:49: TSH 1.75 07/31/22 11:19: POC Glucose 239 H 07/31/22 13:20: Urine Color Yellow, Urine Appearance Sl cloudy, Urine pH 5.5, Ur Specific [place] 1.020, Urine Protein Negative, Urine Glucose (UA) 2+, Urine Ketones 1+, Urine Blood 2+, Urine Nitrate Positive, Urine Bilirubin Negative, Urine Urobilinogen 0.2, Ur Leukocyte Esterase 1+ A, Urine RBC 5-10, Urine WBC 1
[2022-07-31 16:49] LABS: POC Glucose,Bedside 150 (70-110)
--- NOTE | 2022-07-31 17:02 | EXP.CARD.CON ---
History of Present Illness History of Present Illness Consult date: 07/31/22 Requesting physician: Norris Abel Chief complaint: syncope Additional Medical History:: 1. Morbid obesity 2. Diabetes mellitus 3. Hypertension 4. Hyperlipidemia 5. Immobility due to bilateral knee pain and foot pain History of present illness: Mr. Clark is a 71-year-old male with a past medical history of DM, HTN, Hyperlipidemia, obesity and immobility due to bilateral knee pain, transfers self to [facility]. He presents to [facility] due to LOC that he reports occurred 2 days prior to presentation.? The patient was seen following admission to the floor.? He reports that he got home from a trip from [place] three days ago, he reports that the day following his trip he became extremely weak and fell in the floor.? He reports that he laid on the floor approximately 40 hours before calling 911.? He denies hitting head or any pain, he reports continued weakness. In the ER the patient underwent a CT of the head that showed no acute intracranial abnormalities, Troponin was within normal limits at 0.2, EKG showed NSR with no ST segment elevation or depression.? CBC was unremarkable.? CMP showed a slightly elevated creatinine at 1.20.? CK was elevateted at 1550, Covid was positive.? VBG showed a Anion Gap Metabolic Acidosis.? On exam the patient is neurologically intact with only complaint weakness. The patient will be admitted with initial impression:? Syncope with LOC and Rhabdomylosis.? He will be given fluids, neuro checks performed.? PT will be consulted to see the patient.? The plan of care was discussed with the patient in length and detail on admission at bedside.? The patient verbalized understanding and agreement with the plan of care.? The above from H&P by Ian Montenegro DNP Patient confirms events as noted above but is somewhat of a poor historian at this time due to just waking up. He does relate getting out of the shower prior to falling the first time and when the paramedics were at his house he tried to get up a second time and fell again this time losing control of his bowels. He denies any chest pain, pressure, tightness or coughing spell prior to falling or passing out. He does admit to having a couple of [place] coffee's and a glass of [employer] but unsure of when. Echocardiogram has been performed but results are pending at this time. He is a non-smoker Diabetic but does not check his blood sugars routinely [facility] Disclaimer: The information contained in this section may have been updated after the patient was seen, as this information can be updated by other users. Medical History (Updated 07/30/22 @ 20:09 by Ian Montenegro DNP) Diabetes Falls Hyperlipidemia Hypertension Immobility Surgical History (Updated 07/30/22 @ 19:49 by Ian Montenegro DNP) History of bilateral knee replacement Social History (Updated 07/31/22 @ 02:29 by Jennifer Uriarte RN) Smoking Status: Light tobacco smoker alcohol intake: never substance use type: denies use current occupational status: retired Travel in the last 8 weeks: None housing: house Review of Systems Review of Systems Review of systems:: pertinent systems reviewed and negative unless documented below Constitutional Constitutional: Reports frequent falls ENT Ears, Nose, Mouth, and Throat: Reports vertigo *Cardiovascular Cardiovascular: Denies chest pain and Denies dyspnea *Respiratory Respiratory: Denies cough and Denies dyspnea *Musculoskeletal Musculoskeletal: Reports abnormal gait *Neurologic Neurologic: Reports abnormal gait, Reports confusion, Reports frequent falls and Reports vertigo Psychiatric Psychiatric: Reports confusion Exam Data for Last 24 hours Vital signs and Labs for Last 24 Hours: Temp Pulse Resp BP Pulse Ox 98.3 F 67 19 114/68 97 07/31/22 15:20 07/31/22 15:20 07/31/22 15:20 07/31/22 15:20 07/31/22 15:20 [place]
[2022-07-31 21:01] LABS: POC Glucose,Bedside 187 (70-110)
[2022-07-31 22:25] LABS: POC Glucose,Bedside 184 (70-110)
[2022-08-01 04:00] VITALS: BP 118/55; PULSE 67; RESP 18; TEMP 36.8; O2SAT 95; BMI 43.3
--- NOTE | 2022-08-01 04:17 | PC.NURSE ---
Pt c/o pain in his left ankle at beginning of shift. One time dose 5mg [place] administered, pt states favorable results. Assisted pt from chair to bed, pt was only able to pivot and turn and had difficulty moving his legs. Pt has continued to tolerate RA well with sats >90%. Pt able to use urinal independently. Urine is yellow with sediment with strong odor. Call light within reach.
[2022-08-01 04:52] VITALS: PULSE 60
[2022-08-01 08:00] VITALS: BP 152/69; PULSE 75; RESP 20; TEMP 36.7; O2SAT 96
[2022-08-01 08:18] LABS: Basophils # 0.1 K/mm3 (0-0.2); Basophils % 1.2 % (0.1-2.0); Eosinophils # 0.2 K/mm3 (0.0-0.4); Eosinophils % 3.2 % (0.1-12.0); Hematocrit 41.7 % (42.0-52.0); Hemoglobin 13.4 g/dL (14.1-18.0); Lymphocytes # 2.1 K/mm3 (0.7-4.5); Lymphocytes % 33.4 % (10-50); Mean Corpuscular HGB Conc 32.2 g/dL (31.8-35.4); Mean Corpuscular Hemoglobin 29.1 pg (27.0-31.2); Mean Corpuscular Volume 90.4 fl (80-94); Mean Platelet Volume 8.5 fl (7.4-10.4); Monocytes # 0.4 K/mm3 (0.1-1.0); Monocytes % 6.4 % (1.7-9.3); Neutrophils # 3.5 K/mm3 (1.8-7.8); Neutrophils % 55.7 % (37.0-80.0); Platelet Count 247 K/mm3 (142-424); Red Blood Count 4.61 M/mm3 (4.60-6.20); Red Cell Distribution Width 13.7 % (11.5-17.5); White Blood Count 6.4 K/mm3 (4.8-10.8)
[2022-08-01 08:24] LABS: Alanine Aminotransferase 29 U/L (12-78); Albumin Level 3.3 g/dl (3.5-5.0); Alkaline Phosphatase 72 U/L (38-126); Anion Gap 11.5 mEq/L (5-15); Aspartate Amino Transferase 47 U/L (17-59); Bilirubin,Total 0.3 mg/dl (0.2-1.3); Blood Urea Nitrogen 19 mg/dl (9-20); Calcium 7.9 mg/dl (8.4-10.2); Carbon Dioxide 24 mmol/L (22.0-30.0); Chloride 110 mmol/L (98-107); Creatinine Clearance Estimated 83 mL/min (50-200); Estimated Glomerular Filt Rate 96 ml/min (>60); GFR (African American) 116 ML/MIN (>60); Globulin 3.3 g/dL (1.3-3.2); Glucose 107 mg/dl (74-100); Magnesium 1.8 mg/dl (1.6-2.3); Phosphorous 3.3 mg/dl (2.5-4.5); Potassium 3.5 mmoL/L (3.5-5.1); Sodium 142 mmol/L (136-145); Total Protein,Serum 6.6 g/dl (6.3-8.2)
[2022-08-01 08:25] VITALS: O2SAT 95
--- NOTE | 2022-08-01 08:29 | ECG_ITS ---
APPROVED REPORT Exam: Resting ECG HR:72 bpm ECG Measurements Heart Rate 72 AXES NV 226 P 90 QRSd 104 QRS 59 QT 401 T 118 QTc 425 Conclusion SINUS RHYTHM WITH FIRST DEGREE AV BLOCK NONSPECIFIC ST & T-WAVE ABNORMALITY ABNORMAL ECG UNCONFIRMED REPORT Electronically signed by : Lenard Hahn MD 08/01/2022 10:02:29
[2022-08-01 08:39] VITALS: BMI 43.2
[2022-08-01 08:43] LABS: POC Glucose,Bedside 144 (70-110)
--- NOTE | 2022-08-01 11:14 | EXP.DC.SUM ---
General Admission date:: 07/30/22 Discharge date: 08/01/22 HPI HPI HPI: Mr. Clark is a 71-year-old male with a past medical history of DM, HTN, Hyperlipidemia, obesity and immobility due to bilateral knee pain, transfers self to [facility]. He presents to [facility] due to LOC that he reports occurred 2 days prior to presentation. The patient was seen following admission to the floor. He reports that he got home from a trip from [place] three days ago, he reports that the day following his trip he became extremely weak and fell in the floor. He reports that he laid on the floor approximately 40 hours before calling 911. He denies hitting head or any pain, he reports continued weakness. In the ER the patient underwent a CT of the head that showed no acute intracranial abnormalities, Troponin was within normal limits at 0.2, EKG showed NSR with no ST segment elevation or depression. CBC was unremarkable. CMP showed a slightly elevated creatinine at 1.20. CK was elevateted at 1550, Covid was positive. VBG showed a Anion Gap Metabolic Acidosis. On exam the patient is neurologically intact with only complaint weakness. The patient will be admitted with initial impression: Syncope with LOC and Rhabdomylosis. He will be given fluids, neuro checks performed. PT will be consulted to see the patient. The plan of care was discussed with the patient in length and detail on admission at bedside. The patient verbalized understanding and agreement with the plan of care. Hospital Course Hospital Course Hospital Course: 71-year-old male who presented due to syncope with reported LOC and reports of laying on the floor due to weakness approximately 40 hours prior to presentation, work-up is positive for COVID and rhabdomyolysis. Showed gradual improvement during hospitalization. Medically stable for discharge home. Problems addressed as follows: Syncope -Found to be positive for COVID on admission. Fluid resuscitation performed with improvement in blood pressure. Work-up including CT of head (negative for acute findings), Neurologic exam, labs relatively unremarkable. Cardiology was consulted to assist in work-up for syncope. Patient has no acute EKG changes or arrhythmias on telemetry. Echo essentially normal. Syncope light duty duration and COVID. We will have close follow-up cardiology, consider Holter monitor at that time. Thyroid labs normal. Rhabdomyolysis showed gradual improvement during hospitalization with fluid resuscitation. Would benefit from repeat labs to monitor kidney function and CK as an outpatient. Patient currently does not have PCP, will refer to Dr. Alpa Fontanez to establish care for continued outpatient management. Covid - Reports fully vaccinated and boosted. Patient relatively asymptomatic with no oxygen requirement and no acute findings on chest x-ray during admission. Continued isolation precautions. No indication for further treatment. TITO -Resolved with fluid resuscitation. Diabetes Mellitus - Sliding scale insulin during admission, resume home regimen at discharge. Patient does not monitor at home. Falls - PT/OT consulted, would benefit from outpatient therapy. Given order at discharge for outpatient PT. At baseline he does not walk long distances. Transfers to a chair. Would benefit from strengthening to assist with ambulation. Has chronic knee pain, would benefit from further evaluation as an outpatient to assist with improved mobility and quality of life. Stable from a cardiac standpoint for discharge home. Follow-up in our office in 2 to 3 weeks. Home med recommendations Atorvastatin 80 mg daily Bisoprolol 10 mg daily Lisinopril 10 mg daily Exam Data for Last 24 hours Vital signs and Labs for Last 24 Hours: Temp Pulse Resp BP Pulse Ox 98.1 F 75 20 152/69 H 95 08/01/22 08:00 08/01/22 08:00 08/01/22 08:00 08/01/22 08:00 08/01/22 08:25 Laboratory Resu
--- NOTE | 2022-08-01 11:16 | INFXCTL.NOTE ---
Per Dr. Hope, telemetry does not need to be reapplied after shower
--- NOTE | 2022-08-01 11:33 | SW/DCPLANNER ---
Addendum entered by Tracy Vasquez 08/01/22 12:47: Polina garcia/ Mikie stated that services will begin this week for this patient. Original Note: I spoke with this patient regarding plans once he is medically stable for discharge. Patient stated that he resides at home with family and intends to return back home once medically stable for discharge. PT/OT evaluated this patient and has recommended home health services at time of discharge. Patient is agreeable to home health services and does not have a preference as to which agency. Patient information/order will be faxed to [facility]. Patient is planned to discharge home later today.
--- NOTE | 2022-08-01 11:55 | EXP.CARD.PN ---
Subjective Subjective Date: 08/01/22 Time: 11:55 Principal diagnosis: syncope Interval history: 71 yo WM in bed in [facility]. Telemetry shows no arrhythmias. Echo shows mild concentric LVH with EF 55%. No significant valve disease. Exam Data for Last 24 hours Vital signs and Labs for Last 24 Hours: Temp Pulse Resp BP Pulse Ox 98.1 F 75 20 152/69 H 95 08/01/22 08:00 08/01/22 08:00 08/01/22 08:00 08/01/22 08:00 08/01/22 08:25 Laboratory Results - last 24 hr 07/31/22 13:20: Urine Color Yellow, Urine Appearance Sl cloudy, Urine pH 5.5, Ur Specific [place] 1.020, Urine Protein Negative, Urine Glucose (UA) 2+, Urine Ketones 1+, Urine Blood 2+, Urine Nitrate Positive, Urine Bilirubin Negative, Urine Urobilinogen 0.2, Ur Leukocyte Esterase 1+ A, Urine RBC 5-10, Urine WBC 10-20, Ur Squamous Epith Cells Occasional, Urine Bacteria 2+, Urine Yeast 3+ 07/31/22 16:43: POC Glucose 150 H 07/31/22 20:14: POC Glucose 187 H 07/31/22 22:09: POC Glucose 184 H 08/01/22 08:00: WBC 6.4, RBC 4.61, Hgb 13.4 L, Hct 41.7 L, MCV 90.4, MCH 29.1, MCHC 32.2, RDW 13.7, Plt Count 247, MPV 8.5, Neut % (Auto) 55.7, Lymph % (Auto) 33.4, [place] % (Auto) 6.4, Eos % (Auto) 3.2, Baso % (Auto) 1.2, Neut # (Auto) 3.5, Lymph # (Auto) 2.1, [place] # (Auto) 0.4, Eos # (Auto) 0.2, Baso # (Auto) 0.1 08/01/22 08:00: Sodium 142, Potassium 3.5, Chloride 110 H, Carbon Dioxide 24, Anion Gap 11.5, BUN 19 D, Creatinine 0.80, Estimated Creat Clear 83, Estimated GFR 96, Est GFR ( Amer) 116, Glucose 107 H, Calcium 7.9 L, Phosphorus 3.3, Magnesium 1.8, Total Bilirubin 0.3, AST 47 D, ALT 29 D, Alkaline Phosphatase 72, Total Protein 6.6, Albumin 3.3 L, Globulin 3.3 H, Albumin/Globulin Ratio 1.0 L 08/01/22 08:23: POC Glucose 144 H I & O for Last 24 hours: Intake & Output 07/29/22 07/30/22 07/31/22 08/01/22 11:59 11:59 11:59 11:59 Intake Total 1530 / 1530 2988 / 2988 Output Total 1700 / 1700 1450 / 1450 Balance -170 / -170 1538 / 1538 Weight 348 lb 15.868 oz 348 lb 5.286 oz Microbiology Reports for the Last 24 Hours: Microbiology 07/31/22 13:20 Urine,Clean Catch Urine Culture - Preliminary Gram Negative Rods Constitutional Constitutional: no acute distress *Routine Respiratory Exam Respiratory: Present CTA bilaterally *Routine Cardiovascular Exam Cardiovascular: Present RRR Progress Note: A&P Assessment and plan (1) Syncope and collapse: Status: Acute (2) Morbid obesity with BMI of 40.0-44.9, adult: Status: Acute (3) COVID: Status: Acute (4) Diabetes: Status: Acute (5) TITO (acute kidney injury): Status: Acute (6) High anion gap metabolic acidosis: Status: Acute Assessment and Plan Assessment and Plan for All Diagnoses:: 1.? Syncope.? No acute EKG changes with no arrhythmias on telemetry.? Echo essentially normal.? Likely due to dehydration, ETOH use, possible hypotension and poor mobility. 2.? Morbid obesity 3.? COVID, asymptomatic except for malaise 4.? Diabetes mellitus, per hospitalist 6.? Acute kidney injury, resolved 7.? History of hypertension, Currently well controlled on bisoprolol 10 mg twice daily.? Will decrease to 10 mg daily and restart lisinopril 10 mg daily. 8.? Hyperlipidemia, patient is continued on his atorvastatin 80 mg daily Stable from a cardiac standpoint for discharge home. Follow-up in our office in 2 to 3 weeks. Home med recommendations Atorvastatin 80 mg daily Bisoprolol 10 mg daily Lisinopril 10 mg daily
[2022-08-01 12:00] VITALS: BP 140/63; PULSE 62; RESP 20; TEMP 36.6; O2SAT 98
[2022-08-01 12:11] LABS: POC Glucose,Bedside 159 (70-110)
--- NOTE | 2022-08-01 13:08 | HMH.PHAINT1 ---
Pharmacy Intervention Comments: Met with patient at bedside to complete discharge medication counseling. Discussed NEW and continued medications, indications, and possible adverse effects/mitigation strategies. Patient verbalized understanding of information provided and had no questions or concerns at this time. -Evelyne Mantilla, PharmD Candidate 2022
--- NOTE | 2022-08-02 13:32 | EXP.EVENT.NO ---
Urine culture turned resistant to Levaquin. Sensitive to cephalosporins. Sent cefdinir for 7 days. Contacted patient today and informed him of change.
--- NOTE | 2022-08-02 14:08 | CARE MANAGER ---
Spoke with patient for post-discharge phone interview, he states that he has been sleeping soundly and has no issues at this time.
== END 2022-08-01 13:36 | disposition home health service (06) | DRG 178 ==
LOC: ER 15:53 → 2ND 17:23
PROVIDERS: Nurse Practitioner Family; Student in an Organized Health Care Education/Training Program; Admitting Provider Internal Medicine Adolescent Medicine; Emergency Provider Emergency Medicine; PCP Family Medicine; Visit Provider Internal Medicine Adolescent Medicine
DX: E87.1 Hypo-osmolality and hyponatremia (principal); U07.1 COVID-19; M62.82 Rhabdomyolysis; Z68.41 Body mass index [BMI] 40.0-44.9, adult; N17.9 Acute kidney failure, unspecified; R55 Syncope and collapse; R29.6 Repeated falls; W19.XXXA Unspecified fall, initial encounter; E11.9 Type 2 diabetes mellitus without complications; E78.5 Hyperlipidemia, unspecified; Z96.653 Presence of artificial knee joint, bilateral; E66.01 Morbid (severe) obesity due to excess calories; Z79.4 Long term (current) use of insulin
CPT/HCPCS: 36415; 70450; 71045; 80048; 80053; 80305; 81001; 82009; 82550; 82803; 82962; 83735; 84100; 84443; 84484; 85025; 87040; 87086; 87088; 87186; 93005; 93306; 97162; 97165; 97530; 99285; C9803; G0378; J1956; U0003; U0005

== ENCOUNTER 2022-08-09 23:11 | Observation (INO) | payer MEDICARE, SELFPAY ==
[2022-08-09 23:11] VITALS: BP 113/65; PULSE 86; RESP 20; TEMP 36.6; O2SAT 96; BMI 43.7
[2022-08-09 23:14] VITALS: BMI 43.7
--- NOTE | 2022-08-09 23:15 | XR_ITS ---
PROCEDURE INFORMATION: Exam: XR Pelvis Exam date and time: 08/09/2022 11:26 PM Age: 71 years old Clinical indication: Injury or trauma; Fall; Blunt trauma (contusions or hematomas); Does not apply; Pelvic region TECHNIQUE: Imaging protocol: Radiologic exam of the pelvis. Views: 1 or 2 view. COMPARISON: No relevant prior studies available. FINDINGS: Bones/joints: There is no acute fracture of the pelvis or proximal femurs. The SI joints, hips and pubic symphysis are normally aligned. Mild degenerative changes of the SI joints and hips are noted. Soft tissues: Unremarkable. IMPRESSION: No acute fracture of the pelvis or proximal femurs.
--- NOTE | 2022-08-09 23:15 | XR_ITS ---
PROCEDURE INFORMATION: Exam: XR Chest Exam date and time: 08/09/2022 11:27 PM Age: 71 years old Clinical indication: Injury or trauma; Fall; Blunt trauma (contusions or hematomas) TECHNIQUE: Imaging protocol: Radiologic exam of the chest. Views: 1 view. COMPARISON: CR XR CHEST PORTABLE 07/30/2022 2:56 PM FINDINGS: Lungs: Unremarkable. No consolidation. Pleural spaces: Unremarkable. No pleural effusion. No pneumothorax. Heart/Mediastinum: Unremarkable. No cardiomegaly. Vasculature: Unremarkable. Bones/joints: Significant degenerative change of the right glenohumeral joint is noted. IMPRESSION: No acute findings.
--- NOTE | 2022-08-09 23:15 | CT_ITS ---
PROCEDURE INFORMATION: Exam: CT Lumbar Spine Without Contrast Exam date and time: 08/09/2022 11:30 PM Age: 71 years old Clinical indication: Injury or trauma; Fall; Additional info: Fall, low back pain TECHNIQUE: Imaging protocol: Computed tomography of the lumbar spine without contrast. Radiation optimization: All CT scans at this facility use at least one of these dose optimization techniques: automated exposure control; mA and/or kV adjustment per patient size (includes targeted exams where dose is matched to clinical indication); or iterative reconstruction. COMPARISON: CR XR PELVIS 1-2V 08/09/2022 11:26 PM FINDINGS: Bones/joints: There is a mild scoliosis convex left centered at L3 which may be positional. There is no vertebral body compression deformity. The posterior elements are intact without acute fracture. Severe degenerative disc disease is present at L3-L4 and L4-L5 with moderate degenerative disc disease at L5-S1. There is severe facet arthropathy from L3-L4 through L5-S1 most prominent at the L5-S1 level. The SI joints are intact and symmetric. Soft tissues: Unremarkable. IMPRESSION: No acute fracture of the lumbar spine. Spondylosis as detailed.
--- NOTE | 2022-08-09 23:25 | PC.NURSE ---
Patient states that he did not go to his follow up appointment today with with cardiology. Patient states that he also has not been going to physical therapy. Patient was admitted here last week for syncope/falls.
[2022-08-09 23:32] LABS: Chloride 103 mmol/L (98-107); Sodium 135 mmol/L (136-145)
[2022-08-09 23:33] LABS: Potassium 4.7 mmoL/L (3.5-5.1)
[2022-08-09 23:35] LABS: Alanine Aminotransferase 21 U/L (12-78); Albumin Level 3.9 g/dl (3.5-5.0); Albumin/Globulin Ratio 1.1 (1.1-1.8); Alkaline Phosphatase 90 U/L (38-126); Anion Gap 12.7 mEq/L (5-15); Aspartate Amino Transferase 27 U/L (17-59); Bilirubin,Total 0.9 mg/dl (0.2-1.3); Blood Urea Nitrogen 28 mg/dl (9-20); Calcium 8.4 mg/dl (8.4-10.2); Carbon Dioxide 24 mmol/L (22.0-30.0); Creatinine Clearance Estimated 46 mL/min (50-200); Estimated Glomerular Filt Rate 38 ml/min (>60); GFR (African American) 45 ML/MIN (>60); Globulin 3.7 g/dL (1.3-3.2); Glucose 253 mg/dl (74-100); Total Protein,Serum 7.6 g/dl (6.3-8.2)
[2022-08-09 23:40] LABS: Basophils # 0.1 K/mm3 (0-0.2); Basophils % 0.5 % (0.1-2.0); Eosinophils # 0.1 K/mm3 (0.0-0.4); Eosinophils % 0.9 % (0.1-12.0); Hematocrit 41.1 % (42.0-52.0); Hemoglobin 13.5 g/dL (14.1-18.0); Lymphocytes # 2.7 K/mm3 (0.7-4.5); Lymphocytes % 20.8 % (10-50); Mean Corpuscular HGB Conc 32.9 g/dL (31.8-35.4); Mean Corpuscular Hemoglobin 28.4 pg (27.0-31.2); Mean Corpuscular Volume 86.2 fl (80-94); Mean Platelet Volume 7.9 fl (7.4-10.4); Monocytes # 0.8 K/mm3 (0.1-1.0); Monocytes % 6.1 % (1.7-9.3); Neutrophils # 9.2 K/mm3 (1.8-7.8); Neutrophils % 71.6 % (37.0-80.0); Platelet Count 455 K/mm3 (142-424); Red Blood Count 4.76 M/mm3 (4.60-6.20); Red Cell Distribution Width 13.4 % (11.5-17.5); White Blood Count 12.8 K/mm3 (4.8-10.8)
[2022-08-09 23:41] LABS: Ethyl Alcohol < 10 mg/dl (0-10)
[2022-08-09 23:42] LABS: Acetaminophen < 10 ug/ml (10-30); Salicylate < 1.0 mg/dL (2.0-20.0)
[2022-08-10] VITALS (7 sets, daily range): BP systolic 115–166; BP diastolic 65–98; PULSE 80–92; RESP 17–22; TEMP 36.5–36.9; O2SAT 95–99; BMI 41.9; BMI 41.6
--- NOTE | 2022-08-10 01:15 | PC.NURSE ---
MD requested that patient be moved to the wheelchair to assess ambulation in anticipation of possible discharge home. During this time the patient stated that he was laying on the floor at home for a day and a half, as opposed to the hour he stated to EMS. Patient ambulated with assist x 2 to the wheel chair. MD was notified of patient stating he had been on the floor for a much more extended period of time. MD added labs and IV fluids with a urinalysis.
--- NOTE | 2022-08-10 01:15 | HMH.EDFALL ---
Discharge Plan Disposition Patient Disposition: Admitted as Observation Chief Complaint: Fall Prescriptions Prescriptions: No Action atorvastatin 80 MG tablet 80 mg PO HS insulin NPH isoph U-100 human 100 unit/mL suspension 100 units SQ BID Label Comments: INJECT 100 UNITS SUBCUTANEOUSLY TWICE DAILY insulin lispro 100 UNIT/ML solution 50 unit SQ BID lisinopril 20 mg tablet 10 mg PO DAILY 30 Days Qty: 15 0RF Referrals Follow up/Referrals: Provider,Referral, MD [Primary Care Provider] - See instructions Clinical Impressions Clinical Impression: Fall, TITO (acute kidney injury), Diabetes, Morbid obesity with BMI of 40.0-44.9, adult Discharge ED Provider: Yariel Adams Fall HPI General Chief Complaint: Fall Stated Complaint: Fall, chronic/acute back pain Time Seen by Provider: 08/09/22 23:30 Mode of Arrival: EMS Source of Information: Patient, EMS and Medical Record Limitations: No Limitations Description of Symptoms (Recalled from ER Triage Doc. by RN): Patient arrived via ems. Pt is non-ambulatory was ambulating from wheel chair into his recliner and states that he couldn't get his legs under him . Patient fell during transfer. Denied injury at that time but called EMS for evaluation. Upon presentation patient c/o lower back pain. Does have a history of chronic back pain. History of Present Illness HPI Narrative: pt with hx of chronic back pain with fall tonight transferring but now pt reports has been on floor for 2 days - also reviewed med list with pt and he reports not using metformin or actos - complaint: fall Onset (ago): hour(s) Fall from: chair Fall witnessed: no Place fall occurred: home Loss of consciousness: none Prolonged down time: no Symptoms prior to fall: none Context: tripped/slipped and history of frequent falls Location of injury: back Severity: moderate Related Data Home Medications Medication Instructions Recorded Confirmed atorvastatin 80 mg tablet 80 mg PO HS Cholesterol 02/11/20 08/10/22 insulin NPH isoph U-100 human 100 100 units SQ BID Diabetes 02/11/20 08/10/22 unit/mL subcutaneous suspension insulin lispro 100 unit/mL 50 unit SQ BID Diabetes 02/11/20 08/10/22 subcutaneous solution Previous Rx's Medication Instructions Recorded lisinopril 20 mg tablet 10 mg PO DAILY High blood pressure 08/01/22 30 days #15 tabs Allergies Allergy/AdvReac Type Severity Reaction Status Date / Time diatrizoate meglumine Allergy Intermediate Rash Verified 05/28/20 13:03 [From Gastrografin] diatrizoate sodium Allergy Intermediate Rash Verified 05/28/20 13:03 [From Gastrografin] [facility] Disclaimer: The information contained in this section may have been updated after the patient was seen, as this information can be updated by other users. Medical History (Updated 08/10/22 @ 02:32 by Yariel Adams MD) Diabetes Falls Hyperlipidemia Hypertension Immobility Surgical History (Updated 07/30/22 @ 19:49 by Ian Montenegro DNP) History of bilateral knee replacement Social History (Updated 07/31/22 @ 02:29 by Jennifer Uriarte RN) Smoking Status: Light tobacco smoker alcohol intake: never substance use type: denies use current occupational status: retired Travel in the last 8 weeks: None housing: house ROS Obtained: Yes All systems reviewed & no additional complaints except as documented Physical Exam General General appearance: alert and obese Head Head exam: normocephalic Eye Eye exam: Present PERRL and EOMI ENT ENT exam: Present mucous membranes moist Neck Neck exam: Present trachea midline Respiratory Respiratory exam: Absent respiratory distress Cardiovascular Cardiovascular exam: Present regular rate and systolic murmur Abdominal Exam Abdominal exam: Present soft Extremities Exam Extremities exam: Present edema; Absent calf tenderness Neurological Exam Neurological exam: Present al
[2022-08-10 02:09] LABS: Creatine Kinase 221 U/L (55-170)
--- NOTE | 2022-08-10 02:39 | PC.NURSE ---
Hospitalist KARUNA Roach, at bedside with pt
--- NOTE | 2022-08-10 02:41 | PC.NURSE ---
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
--- NOTE | 2022-08-10 02:50 | EXP.HP ---
History of Present Illness *Admission Date: 08/10/22 *Reason for visit:: generalized weakness *History of present illness: this is a 71-year-old male with past medical history of diabetes, hypertension, recent COVID infection who presents emergency department today with complaints of general weakness and fall. He was recently discharged from the hospital 08/01/2022 for TITO, dehydration and rhabdomyolysis. Over the course of the hospitalization he received IV fluids and had improvement in symptoms and was discharged home. He reportedly was discharged home with home health but has not seen them due to missed schedule. He reports that yesterday he fell on the floor and laid there for several hours before he called his neighbor to help him up. He fell again today trying to transfer to his chair and called 911. He complains of back pain but also has chronic back pain. He complains of generalized weakness, denies chest pain, shortness of breath, palpitations. Emergency department work-up significant for creatinine of 1.8 with a baseline of 0.8. Mild leukocytosis noted with a white blood cell count of 12. Mildly elevated glucose in the setting of diabetes. Other laboratory evaluation stable. Of note, patient reports not being compliant with home medications and states that he has not finished his antibiotics for his urinary tract infection. He also has not had his blood pressure medications or his metformin a week. He states that he has been fatigued, generally unwell and just has not tolerated taking his medications. [facility] Disclaimer: The information contained in this section may have been updated after the patient was seen, as this information can be updated by other users. Medical History Diabetes Falls Hyperlipidemia Hypertension Immobility Surgical History (Updated 07/30/22 @ 19:49 by Ian Montenegro DNP) History of bilateral knee replacement Social History (Updated 07/31/22 @ 02:29 by Jennifer Uriarte RN) Smoking Status: Light tobacco smoker alcohol intake: never substance use type: denies use current occupational status: retired Travel in the last 8 weeks: None housing: house Review of Systems Constitutional Constitutional: Reports poor appetite and Reports lethargy Eyes Eyes: Reports system reviewed and no additional complaints, except as documented ENT Ears, Nose, Mouth, and Throat: Reports system reviewed and no additional complaints, except as documented *Cardiovascular Cardiovascular: Reports system reviewed and no additional complaints, except as documented *Respiratory Respiratory: Reports system reviewed and no additional complaints, except as documented *Gastrointestinal Gastrointestinal: Reports system reviewed and no additional complaints, except as documented *Genitourinary Genitourinary: Reports system reviewed and no additional complaints, except as documented *Musculoskeletal Musculoskeletal: Reports system reviewed and no additional complaints, except as documented *Neurologic Neurologic: Reports system reviewed and no additional complaints, except as documented Meds Home Medications and Allergies Home Medications Medication Instructions Recorded Confirmed Type atorvastatin 80 mg tablet 80 mg PO HS Cholesterol 02/11/20 08/10/22 History insulin NPH isoph U-100 human 100 100 units SQ BID Diabetes 02/11/20 08/10/22 History unit/mL subcutaneous suspension insulin lispro 100 unit/mL 50 unit SQ BID Diabetes 02/11/20 08/10/22 History subcutaneous solution lisinopril 20 mg tablet 10 mg PO DAILY High blood pressure 08/01/22 08/10/22 Rx 30 days #15 tabs New Prescriptions to Start Prescriptions: Allergies Allergy/AdvReac Type Severity Reaction Status Date / Time diatrizoate meglumine Allergy Intermediate Rash Verified 05/28/20 13:03 [From Gastrografin] diatrizoate sodium Allergy Intermediate Rash Ve
[2022-08-10 03:15] LABS: Influenza A, PCR Not Detected (NotDetected); Influenza B, PCR Not Detected (NotDetected)
[2022-08-10 03:48] LABS: Coronavirus 19, PCR Detected (NotDetected)
[2022-08-10 06:16] LABS: POC Glucose,Bedside 190 (70-110)
[2022-08-10 06:48] LABS: Basophils # 0.1 K/mm3 (0-0.2); Basophils % 0.9 % (0.1-2.0); Eosinophils # 0.1 K/mm3 (0.0-0.4); Hematocrit 38.6 % (42.0-52.0); Hemoglobin 12.8 g/dL (14.1-18.0); Lymphocytes # 2.9 K/mm3 (0.7-4.5); Lymphocytes % 24.2 % (10-50); Mean Corpuscular Hemoglobin 28.8 pg (27.0-31.2); Mean Corpuscular Volume 87.1 fl (80-94); Monocytes # 0.7 K/mm3 (0.1-1.0); Monocytes % 6.3 % (1.7-9.3); Neutrophils % 67.6 % (37.0-80.0); Platelet Count 420 K/mm3 (142-424); Red Blood Count 4.43 M/mm3 (4.60-6.20); Red Cell Distribution Width 13.5 % (11.5-17.5); White Blood Count 11.9 K/mm3 (4.8-10.8)
[2022-08-10 07:41] LABS: Anion Gap 14.6 mEq/L (5-15); Blood Urea Nitrogen 28 mg/dl (9-20); Calcium 8.3 mg/dl (8.4-10.2); Carbon Dioxide 22 mmol/L (22.0-30.0); Chloride 104 mmol/L (98-107); Creatine Kinase 218 U/L (55-170); Creatinine Clearance Estimated 56 mL/min (50-200); Estimated Glomerular Filt Rate 46 ml/min (>60); GFR (African American) 56 ML/MIN (>60); Glucose 195 mg/dl (74-100); Magnesium 1.8 mg/dl (1.6-2.3); Potassium 4.6 mmoL/L (3.5-5.1); Sodium 136 mmol/L (136-145)
[2022-08-10 10:11] LABS: Microscopic, Urine URINE MICROSCOPIC (MICROSCOPIC)
[2022-08-10 10:13] LABS: Appearance,Urine CLOUDY (Clear); Bilirubin,Urine Negative (Negative); Blood, Urine 3+ (Negative); Color,Urine YELLOW (Yellow); Glucose,Urine (UA) Negative (Negative); Ketones,Urine Negative (Negative); Leukocyte Esterase,Urine 2+ (Negative); Nitrate,Urine POSITIVE (Negative); Protein,Urine TRACE (Negative); Specific Gravity, Urine 1.025 (1.005-1.030); Urobilinogen,Urine 0.2 EU/dl (0.2)
--- NOTE | 2022-08-10 10:24 | HMH.PTEV ---
Physical Therapy Evaluation Rehab PT IP Evaluation Start: 08/10/22 02:43 Freq: ONCE Status: Active Protocol: Document 08/10/22 10:20 HILDA (Rec: 08/10/22 10:24 PHOAMY [id number]) Subjective/History History History 71 yowm adm to [facility] with TITO. He reports he fell from his chair and laid in the floor for several hours and this is the 2nd such episode in the past week. He lives alone, he is generally independent with transfers to his w/c which is his primary mode of mobility. Subjective Subjective He reports feeling generally weak this am. Rehab PT IP Eval Objective Appearance Patient Behavior Appropriate Patient Orientation Person,Place,Time Difficulty following instructions none Speech Pattern Clear Ambulation Patient Able to Ambulate No Balance Ability to Arise Able, uses arms to help Sitting Balance Steady, safe Standing Balance Steady, wide stance Dynamic Sitting Balance Ability Good Dynamic Standing Balance Ability Fair Transfers Bed Transfer Ability Minimal x 1 (25% assist) Chair Transfer Ability Minimal x 1 (25% assist) Sit to Stand Bed Transfer Ability Minimal x 1 (25% assist) Sit to Stand Chair Transfer Ability Minimal x 1 (25% assist) ROM All Extremities PT ROM Status WFL MMT All Extremities PT MMT WFL Rehab PT IP prob,goals,plan Problems Date of Evaluation: 08/10/22 PT IP Problems Bed Mobility,Transfers Rehab Potential Rehab Potential Good Plan PT Intervention Plan Bed Mobility,Transfers,Self care,Therapeutic Exercise PT Plan Frequency Daily Duration LOS Discharge Goals Bed Transfer Ability Contact Guard/Hand Hold Sit to Stand Chair Transfer Ability Contact Guard/Hand Hold Discharge Plan PT Discharge Plan Pt is currently most appropriate for rehab placement as he needs to be fully independent with all transfers to return home to prior living situation safely. G -code Required No Eval Complexity Eval Charge Codes 14068 - Moderate Complexity PHYSICIAN CERTIFICATION: I certify the specified therapy services for Bry Clark are required, authorized, and reviewed every 30 days.
--- NOTE | 2022-08-10 10:31 | HMH.OTEV ---
OT Inpatient Evaluation Rehab OT IP Evaluation Start: 08/10/22 08:31 Freq: ONCE Status: Active Protocol: Document 08/10/22 10:01 KAITY (Rec: 08/10/22 10:31 [facility] [id number]) Rehab OT IP Assessment Subjective History Pt is oriented x3 person, place, and . Pt was admitted to [facility] on 08/10/22 due to generalized weakness. He reports that Sunday he fell on the floor and laid there for several hours before he called his neighbor to help him up. He fell again trying to transfer to his chair and called 911. Pt reports that he was independent in all ADLs and grocery shopping. Pt reports that he has assistance with cleaning. Pt reports that he is still able to drive independently. He reports that he lives alone in a house . Pt reports that he was able to complete short transfers from surfaces to w/c. Pt has a past medical history of the following: Diabetes Falls Hyperlipidemia Hypertension Immobility Subjective Laying on the floor is not fun. Objective Patient Orientation Person,Place,Birthday Upper Extremity Gross ROM WFL Shoulder ROM Limitations Muscle Weakness Elbow ROM Limitations Muscle Weakness Wrist Limitations of Range of Motion Muscle Weakness Bed Mobility bed mobility-scooting,bed mobility - supine/sit,bed mobility - rolling Assist Level Contact Guard/Hand Hold Transfer Training Sit/Stand/Step Transfer Assist Level Minimal x 2 (25% assist) decrease in endurance Yes Rehab OT IP prob,goals,plan Problems Date of Evaluation: 08/10/22 OT IP Problems Bed Mobility,Transfers,Balance ,Self care,Safety Rehab Potential Rehab Potential Good Equipment Needs Assistive Devices Wheelchair Plan OT intervention Plan Bed Mobility,Transfers,Balance
[2022-08-10 10:33] LABS: Bacteria,Urine 2+ /lpf; RBC,Urine 20-50 #/hpf (0-3); Squamous Epithelial Cell,Urine Occasional #/hpf (0-5)
--- NOTE | 2022-08-10 10:34 | HMH.PHAINT1 ---
Pharmacy Intervention Comments: Home medication reconciliation completed on patient using external fill history from outside pharmacy. -Evelyne Mantilla, PharmD Candidate 2022
--- NOTE | 2022-08-10 10:51 | SW/DCPLANNER ---
Addendum entered by Tracy Vasquez 08/11/22 08:21: The plan for this patient is to discharge to [facility] today [facility] level of care. Addendum entered by Leanna Pat RN 08/10/22 12:44: Patient has been offered a bed at [facility]. Patient is agreeable, and plans are for potential discharge tomorrow. Original Note: I spoke with this patient regarding plans once medically stable for discharge. PT/OT evaluated patient and recommended SNF level of care at time of discharge. Patient was recently discharged from [facility] and set up / [facility]. Patient is agreeable to SNF level of care at this time. I will fax patient information to [facility], [facility], [facility] and [facility]. Patient is not interested in [facility] and [facility] does not currently have any male beds. Discharge date is unknown at this time. Patient did test positive for COVID on 07/30/22.
[2022-08-10 11:40] LABS: POC Glucose,Bedside 239 (70-110)
[2022-08-10 16:32] LABS: POC Glucose,Bedside 242 (70-110)
--- NOTE | 2022-08-10 17:38 | EXP.PN ---
Subjective *Date: 08/10/22 *Time: 17:38 Interval history: Date of service August 10, 2022 The patient reports no acute events overnight. Nursing staff report that he remains afebrile with stable vital signs and saturating appropriately on room air. His morning labs have been reviewed and discussed. Exam Data for Last 24 hours Vital signs and Labs for Last 24 Hours: Temp Pulse Resp BP Pulse Ox 98.1 F 83 18 166/98 H 97 08/10/22 15:06 08/10/22 15:06 08/10/22 15:06 08/10/22 15:06 08/10/22 15:06 Laboratory Results - last 24 hr 08/09/22 01:30: Total Creatine Kinase 221 H 08/09/22 23:20: WBC 12.8 H, RBC 4.76, Hgb 13.5 L, Hct 41.1 L, MCV 86.2, MCH 28.4, MCHC 32.9, RDW 13.4, Plt Count 455 H, MPV 7.9, Neut % (Auto) 71.6, Lymph % (Auto) 20.8, [place] % (Auto) 6.1, Eos % (Auto) 0.9, Baso % (Auto) 0.5, Neut # (Auto) 9.2 H, Lymph # (Auto) 2.7, [place] # (Auto) 0.8, Eos # (Auto) 0.1, Baso # (Auto) 0.1 08/09/22 23:20: Sodium 135 L, Potassium 4.7, Chloride 103, Carbon Dioxide 24, Anion Gap 12.7, BUN 28 H, Creatinine 1.80 H, Estimated Creat Clear 46, Estimated GFR 38 L, Est GFR ( Amer) 45 L, Glucose 253 H, Calcium 8.4, Total Bilirubin 0.9, AST 27, ALT 21, Alkaline Phosphatase 90, Total Protein 7.6, Albumin 3.9, Globulin 3.7 H, Albumin/Globulin Ratio 1.1, Salicylates < 1.0 L, Acetaminophen < 10 L 08/09/22 23:20: Plasma/Serum Alcohol < 10 08/10/22 02:25: SARS-CoV-2 (PCR) Detected A, Influenza A Untype (PCR) Not detected, Influenza Type B (PCR) Not detected 08/10/22 06:09: POC Glucose 190 H 08/10/22 06:14: WBC 11.9 H, RBC 4.43 L, Hgb 12.8 L, Hct 38.6 L, MCV 87.1, MCH 28.8, MCHC 33.0, RDW 13.5, Plt Count 420, MPV 8.0, Neut % (Auto) 67.6, Lymph % (Auto) 24.2, [place] % (Auto) 6.3, Eos % (Auto) 1.0, Baso % (Auto) 0.9, Neut # (Auto) 8.0 H, Lymph # (Auto) 2.9, [place] # (Auto) 0.7, Eos # (Auto) 0.1, Baso # (Auto) 0.1 08/10/22 06:14: Sodium 136, Potassium 4.6, Chloride 104, Carbon Dioxide 22, Anion Gap 14.6, BUN 28 H, Creatinine 1.50 H, Estimated Creat Clear 56, Estimated GFR 46 L, Est GFR ( Amer) 56 L D, Glucose 195 H D, Calcium 8.3 L, Magnesium 1.8, Total Creatine Kinase 218 H 08/10/22 09:52: Urine Color Yellow, Urine Appearance Cloudy, Urine pH 6.0, Ur Specific [place] 1.025, Urine Protein Trace, Urine Glucose (UA) Negative, Urine Ketones Negative, Urine Blood 3+, Urine Nitrate Positive, Urine Bilirubin Negative, Urine Urobilinogen 0.2, Ur Leukocyte Esterase 2+ A, Urine RBC 20-50, Urine WBC 10-20, Ur Squamous Epith Cells Occasional, Urine Bacteria 2+ 08/10/22 11:32: POC Glucose 239 H 08/10/22 16:21: POC Glucose 242 H I & O for Last 24 hours: Intake & Output 08/07/22 08/08/22 08/09/22 08/10/22 23:59 23:59 23:59 23:59 Intake Total 1720 / 1720 Output Total 1825 / 1825 Balance -105 / -105 Weight 158.757 kg 152 kg Constitutional Constitutional: no acute distress, chronically ill appearing and cooperative *Routine HEENT Exam Head: Present normocephalic Eye: Present EOMI and PERRL ENT: Present mucous membranes moist *Routine Neck Exam Neck: Present supple; Absent lymphadenopathy *Routine Respiratory Exam Respiratory: Present rhonchi, normal respiratory effort and symmetric chest movement *Routine Cardiovascular Exam Cardiovascular: Present RRR *Routine Abdominal Exam Abdominal: Present soft and normoactive bowel sounds; Absent tenderness *Routine Extremities Exam Extremities: Present full ROM, pulses intact and normal capillary refill; Absent cyanosis, clubbing or edema *Routine Skin Exam Skin: Present warm; Absent rash *Routine Neurological Exam Neurological: Present alert, oriented X3, moving all extremities, vision grossly intact, hearing grossly intact and normal speech Routine Psychiatric Exam Psychiatric: Present normal affect, normal thought process, cooperative, good insight, good judgment and anxious Assessment and Plan *Assessment and plan (1) TITO (acute kidney injury): Status: Acute Category: Medical
--- NOTE | 2022-08-10 18:16 | PC.NURSE ---
VS stable, patient remained on room air. Urine has foul odor. Lung sounds clear. Patient up to chair for almost half of shift.
[2022-08-10 20:47] LABS: POC Glucose,Bedside 273 (70-110)
[2022-08-11 04:00] VITALS: BP 160/80; PULSE 86; RESP 24; TEMP 36.9; O2SAT 97; BMI 41.8
[2022-08-11 05:49] LABS: POC Glucose,Bedside 225 (70-110)
[2022-08-11 07:08] LABS: Basophils # 0.1 K/mm3 (0-0.2); Basophils % 0.7 % (0.1-2.0); Eosinophils # 0.2 K/mm3 (0.0-0.4); Eosinophils % 1.9 % (0.1-12.0); Hematocrit 38.8 % (42.0-52.0); Hemoglobin 12.7 g/dL (14.1-18.0); Lymphocytes # 2.8 K/mm3 (0.7-4.5); Lymphocytes % 28.1 % (10-50); Mean Corpuscular HGB Conc 32.7 g/dL (31.8-35.4); Mean Corpuscular Hemoglobin 28.1 pg (27.0-31.2); Mean Corpuscular Volume 86.2 fl (80-94); Mean Platelet Volume 8.2 fl (7.4-10.4); Monocytes # 0.6 K/mm3 (0.1-1.0); Monocytes % 6.2 % (1.7-9.3); Neutrophils # 6.4 K/mm3 (1.8-7.8); Neutrophils % 63.2 % (37.0-80.0); Platelet Count 439 K/mm3 (142-424); Red Cell Distribution Width 13.4 % (11.5-17.5); White Blood Count 10.1 K/mm3 (4.8-10.8)
[2022-08-11 07:15] LABS: Anion Gap 12.3 mEq/L (5-15); Blood Urea Nitrogen 19 mg/dl (9-20); Calcium 8.3 mg/dl (8.4-10.2); Carbon Dioxide 23 mmol/L (22.0-30.0); Chloride 106 mmol/L (98-107); Creatinine Clearance Estimated 83 mL/min (50-200); Estimated Glomerular Filt Rate 74 ml/min (>60); GFR (African American) 90 ML/MIN (>60); Glucose 223 mg/dl (74-100); Potassium 4.3 mmoL/L (3.5-5.1); Sodium 137 mmol/L (136-145)
[2022-08-11 07:33] LABS: Procalcitonin 0.079 ng/mL (0.0-2.0)
[2022-08-11 08:00] VITALS: BP 111/82; PULSE 88; RESP 20; TEMP 36.6; O2SAT 95
--- NOTE | 2022-08-11 10:33 | EXP.DC.SUM ---
General Admission date:: 08/10/22 Discharge date: 08/11/22 HPI HPI HPI: This is a 71-year-old male with past medical history of diabetes, hypertension, recent COVID infection who presents emergency department today with complaints of general weakness and fall. He was recently discharged from the hospital 08/01/2022 for TITO, dehydration and rhabdomyolysis. Over the course of the hospitalization he received IV fluids and had improvement in symptoms and was discharged home. He reportedly was discharged home with home health but has not seen them due to missed schedule. He reports that yesterday he fell on the floor and laid there for several hours before he called his neighbor to help him up. He fell again today trying to transfer to his chair and called 911. He complains of back pain but also has chronic back pain. He complains of generalized weakness, denies chest pain, shortness of breath, palpitations. Emergency department work-up significant for creatinine of 1.8 with a baseline of 0.8. Mild leukocytosis noted with a white blood cell count of 12. Mildly elevated glucose in the setting of diabetes. Other laboratory evaluation stable. Concerns for UTI.. Hospital Course Hospital Course Hospital Course: The patient is admitted to the medical floor with urine culture collected. He is maintained on broad-spectrum IV antibiotic therapy with previous urine culture reviewed from July 31, 2022. He is provided gentle IV fluid resuscitation and his laboratory studies and inflammatory markers are trended. His creatinine returns to baseline with a discharge creatinine 1.0 (admission creatinine 1.8). His electrolytes remained stable. His CBC identified and improved leukocytoses with stable hemoglobin. PT and OT were consulted and recommended inpatient rehab. Case management assisted with transition of care and the patient was amendable to transition his care for rehab and strengthening. He identified improvement and inquired about discharge to rehab. We have recommended to complete 5 more days of IV Rocephin for his previously identified E. coli UTI. He understands the importance of following up with his PCP on discharge. I spent 35 minutes in [id number] time with the patient, case management and nursing staff concerning the discharge process. We discussed the admitting diagnoses and hospital course. We discussed identified improvement and the patient's desire to transition his care for rehab. We reviewed inpatient studies and imaging. The patient voiced understanding on the importance of follow-up with his primary care provider and specialist(s). The patient plans to be compliant with the medication regimen prescribed and follow-up appointments. His care will be transitioned to city hospital in [facility]. Exam Data for Last 24 hours Vital signs and Labs for Last 24 Hours: Temp Pulse Resp BP Pulse Ox 97.8 F 88 20 111/82 95 08/11/22 08:00 08/11/22 08:00 08/11/22 08:00 08/11/22 08:00 08/11/22 08:00 Laboratory Results - last 24 hr 08/10/22 09:52: Urine Color Yellow, Urine Appearance Cloudy, Urine pH 6.0, Ur Specific [place] 1.025, Urine Protein Trace, Urine Glucose (UA) Negative, Urine Ketones Negative, Urine Blood 3+, Urine Nitrate Positive, Urine Bilirubin Negative, Urine Urobilinogen 0.2, Ur Leukocyte Esterase 2+ A, Urine RBC 20-50, Urine WBC 10-20, Ur Squamous Epith Cells Occasional, Urine Bacteria 2+ 08/10/22 11:32: POC Glucose 239 H 08/10/22 16:21: POC Glucose 242 H 08/10/22 20:36: POC Glucose 273 H 08/11/22 05:06: POC Glucose 225 H 08/11/22 06:55: WBC 10.1, RBC 4.50 L, Hgb 12.7 L, Hct 38.8 L, MCV 86.2, MCH 28.1, MCHC 32.7, RDW 13.4, Plt Count 439 H, MPV 8.2, Neut % (Auto) 63.2, Lymph % (Auto) 28.1, [place] % (Auto) 6.2, Eos % (Auto) 1.9, Baso % (Auto) 0.7, Neut # (Auto) 6.4, Lymph # (Auto) 2.8, [place] # (Auto) 0.6, Eos # (Auto) 0.2, Baso # (Auto) 0.1 08/11/22 06:55: Sodium 137, Potassium 4.3, Chloride 106, Car
[2022-08-11 12:00] VITALS: BP 120/83; PULSE 83; RESP 20; TEMP 36.4; O2SAT 98
--- NOTE | 2022-08-14 13:24 | CARE MANAGER ---
Contacted [facility] related to hospital discharge. They state he is doing fine. Deny any questions or concerns. BENNY Whitaker
== END 2022-08-11 12:35 ==
LOC: ER 08-10 02:32 → 2ND 08-10 03:52
PROVIDERS: Nurse Practitioner Acute Care; Student in an Organized Health Care Education/Training Program; Admitting Provider Family Medicine; Emergency Provider Emergency Medicine; Visit Provider Family Medicine
DX: N17.9 Acute kidney failure, unspecified (principal); M62.81 Muscle weakness (generalized); E11.9 Type 2 diabetes mellitus without complications; Z79.4 Long term (current) use of insulin; R29.6 Repeated falls; U07.1 COVID-19; W19.XXXA Unspecified fall, initial encounter; N39.0 Urinary tract infection, site not specified
CPT/HCPCS: G0378; 36415; 71045; 72131; 72170; 80048; 80053; 80329; 81001; 82550; 82962; 83735; 84145; 85025; 87086; 87088; 87186; 97110; 97162; 97166; 99285; C9803; J0696; U0003; U0005

== ENCOUNTER → 2022-09-05 23:35 | Outpatient (CLI) | payer MEDICARE, SELFPAY ==
[2022-09-05 20:53] LABS: Hemoglobin A1C 8.5 % (4.0-6.0)
== END ==
PROVIDERS: PCP Family Medicine; Visit Provider Family Medicine
DX: E11.9 Type 2 diabetes mellitus without complications (principal); Z79.4 Long term (current) use of insulin
CPT/HCPCS: 83036

== ENCOUNTER → 2023-01-02 23:24 | Outpatient (CLI) | payer MEDICARE, SELFPAY ==
[2023-01-02 18:51] LABS: Basophils # 0.1 K/mm3 (0-0.2); Basophils % 0.7 % (0.1-2.0); Eosinophils # 0.2 K/mm3 (0.0-0.4); Eosinophils % 1.5 % (0.1-12.0); Hematocrit 45.1 % (42.0-52.0); Hemoglobin 14.6 g/dL (14.1-18.0); Lymphocytes # 3.1 K/mm3 (0.7-4.5); Lymphocytes % 31.3 % (10-50); Mean Corpuscular HGB Conc 32.4 g/dL (31.8-35.4); Mean Corpuscular Hemoglobin 28.4 pg (27.0-31.2); Mean Corpuscular Volume 87.7 fl (80-94); Mean Platelet Volume 8.6 fl (7.4-10.4); Monocytes # 0.6 K/mm3 (0.1-1.0); Monocytes % 6.5 % (1.7-9.3); Neutrophils # 5.9 K/mm3 (1.8-7.8); Platelet Count 349 K/mm3 (142-424); Red Blood Count 5.14 M/mm3 (4.60-6.20); Red Cell Distribution Width 13.6 % (11.5-17.5); White Blood Count 9.8 K/mm3 (4.8-10.8)
[2023-01-02 19:08] LABS: Alanine Aminotransferase 29 U/L (12-78); Albumin Level 4.2 g/dl (3.5-5.0); Albumin/Globulin Ratio 1.2 (1.1-1.8); Alkaline Phosphatase 113 U/L (38-126); Anion Gap 17.5 mEq/L (5-15); Aspartate Amino Transferase 29 U/L (17-59); Bilirubin,Total 0.4 mg/dl (0.2-1.3); Blood Urea Nitrogen 15 mg/dl (9-20); Carbon Dioxide 21 mmol/L (22.0-30.0); Chloride 104 mmol/L (98-107); Chol/HDL Ratio 7.6 (1-3.5); Cholesterol 235 mg/dl (140-200); Estimated Glomerular Filt Rate 96 ml/min (>60); GFR (African American) 116 ML/MIN (>60); Globulin 3.5 g/dL (1.3-3.2); Glucose 255 mg/dl (74-100); HDL Cholesterol 31 mg/dl (40-60); Potassium 4.5 mmoL/L (3.5-5.1); Sodium 138 mmol/L (136-145); Total Protein,Serum 7.7 g/dl (6.3-8.2); Triglycerides 289 mg/dl (30-150); VLDL Cholesterol 58 mg/dL (0-40)
[2023-01-02 19:20] LABS: Direct LDL Cholesterol 134.91 mg/dL (100-129); Hemoglobin A1C 8.5 % (4.0-6.0)
[2023-01-02 19:41] LABS: Prostate Specific Ag Screen < 0.1 ng/ml (0.0-4.0)
== END ==
PROVIDERS: PCP Family Medicine; Visit Provider Family Medicine
DX: E11.9 Type 2 diabetes mellitus without complications (principal); Z96.653 Presence of artificial knee joint, bilateral; Z12.5 Encounter for screening for malignant neoplasm of prostate; Z79.4 Long term (current) use of insulin
CPT/HCPCS: 80053; 80061; 83036; 84443; 85025; G0103

== ENCOUNTER 2023-03-13 15:00 | Outpatient (RCR) | payer MEDICARE, SELFPAY ==
--- NOTE | 2022-11-07 15:54 | HMH.RHREAS ---
Rehab Reassessment Rehab OP Re-assessment Start: 11/07/22 15:39 Freq: Status: Active Protocol: Document 11/07/22 15:40 CAM (Rec: 11/07/22 15:52 CAM [id number]) E-signed By Chris Erickson, PT Rehab Re-assessment Subjective Subjective Patient reports 20% improvement since start of care. Objective Objective Notes AROM RLE: - AROM LLE: -129 MMT: R hip/thigh mm grossly 4/ 5; L hip/thigh mm 4-/5 grossly Pain 3-4/10 at worst on avg 30 sec STS: 3 Assessment Progress Assessment Slower Than Expected Assessment Notes Patient continues to demonstrate significant AROM, MMT, endurance, propriocecption. Patient is still reliant standing time is approx 30 sec sec to elevated BMI and dec BLE strength. Patient reports mod difficulty with outpatient/acquatic therapy. Patient would benefit from continuing with skilled PT services to address functional limitations with all standing/ambulatory activities. Patient goals met STG's Goals Not Met LTG's Revised Goals 30 sec STS test within high fall risk age related norm (11 -13sec) Plan Plan Continue with current POC. Frequency of Therapy 16 Duration of therapy 1 Time and Billing Re-Eval Time 15 Re-Eval Billing Units 1 PHYSICIAN CERTIFICATION: I certify the specified therapy services for Bry Clark are required, authorized, and reviewed every 30 days.
--- NOTE | 2022-12-13 16:25 | HMH.RHREAS ---
Rehab Reassessment Rehab OP Re-assessment Start: 11/07/22 15:39 Freq: Status: Active Protocol: Document 12/13/22 16:14 CAM (Rec: 12/13/22 16:24 CAM [id number]) E-signed By Chris Erickson, PT Rehab Re-assessment Subjective Subjective Patient reports 40% improvement since start of care. Objective Objective Notes AROM RLE: AROM LLE: - MMT: R hip/thigh mm grossly 4+ /5; L hip/thigh mm 4/5 grossly Pain 3-4/10 at worst on avg 30 sec STS: 3 [ End ] Assessment Progress Assessment Slower Than Expected Assessment Notes Patient continues to demonstrate significant AROM, MMT, endurance, propriocecption. Patient is still reliant standing time is approx 30 sec sec to elevated BMI and dec BLE strength. Patient reports mod difficulty with outpatient/acquatic therapy. Patient would benefit from continuing with skilled PT services to address functional limitations with all standing/ambulatory activities. Patient goals met STG's Goals Not Met LTG's Revised Goals NA Plan Plan Continu with current POC. Frequency of Therapy 2x/week Duration of therapy 4 weeks Time and Billing Re-Eval Time 16 Re-Eval Billing Units 1 PHYSICIAN CERTIFICATION: I certify the specified therapy services for Bry Clark are required, authorized, and reviewed every 30 days.
--- NOTE | 2023-01-09 15:46 | HMH.RHREAS ---
Rehab Reassessment Rehab OP Re-assessment Start: 11/07/22 15:39 Freq: Status: Active Protocol: Document 01/09/23 15:39 CAM (Rec: 01/09/23 15:45 CAM [id number]) E-signed By Chris Erickson, PT Rehab Re-assessment Subjective Subjective Patient reports 55% improvement since start of care. Objective Objective Notes AROM RLE: AROM LLE: - MMT: R hip/thigh mm grossly 5/ 5; L hip/thigh mm 4+/5 grossly Pain 3-4/10 at worst on avg 30 sec STS: 4 [ End ] Assessment Progress Assessment Slower Than Expected Assessment Notes Patient continues to demonstrate significant AROM, MMT, endurance, propriocecption. Patient is still reliant standing time is approx 30 sec sec to elevated BMI and dec BLE strength. Patient reports mod difficulty with outpatient/acquatic therapy. Patient would benefit from continuing with skilled PT services to address functional limitations with all standing/ambulatory activities. [ End ] Patient goals met STG's Goals Not Met LTG's Revised Goals NA Plan Plan Continue with current POC. Frequency of Therapy 2x/week Duration of therapy 4 weeks Time and Billing Re-Eval Time 15 Re-Eval Billing Units 1 PHYSICIAN CERTIFICATION: I certify the specified therapy services for Bry Clark are required, authorized, and reviewed every 30 days.
--- NOTE | 2023-02-08 15:50 | HMH.RHREAS ---
Rehab Reassessment Rehab OP Re-assessment Start: 11/07/22 15:39 Freq: Status: Active Protocol: Document 02/08/23 15:43 CAM (Rec: 02/08/23 15:49 CAM [id number]) E-signed By Chris Erickson, PT Rehab Re-assessment Subjective Subjective Patient reports 60% improvement since start of care. Objective Objective Notes AROM RLE: - AROM LLE: - MMT: R hip/thigh mm grossly 5/ 5; L hip/thigh mm 4+/5 grossly Pain 3-4/10 at worst on avg 30 sec STS: 5 [ End ] Assessment Progress Assessment Slower Than Expected Assessment Notes Patient continues to demonstrate significant AROM, MMT, endurance, propriocecption. Patient is still reliant standing time is approx 30 sec sec to elevated BMI and dec BLE strength. Patient reports mod difficulty with outpatient/acquatic therapy. Patient would benefit from continuing with skilled PT services to address functional limitations with all standing/ambulatory activities. [ End ] Patient goals met STG's Goals Not Met LTG's Revised Goals NA Plan Plan Continue with current POC. Frequency of Therapy 2x/week Duration of therapy 4 weeks Time and Billing Re-Eval Time 15 Re-Eval Billing Units 1 PHYSICIAN CERTIFICATION: I certify the specified therapy services for Bry Clark are required, authorized, and reviewed every 30 days.
== END 2023-03-13 15:05 | disposition home or self-care (01) ==
LOC: PT 15:00
PROVIDERS: PCP Family Medicine; Visit Provider Family Medicine
DX: Z74.09 Other reduced mobility (principal); M62.81 Muscle weakness (generalized)
CPT/HCPCS: 97110; 97112; 97113; 97116; 97163; 97164; 97530

== ENCOUNTER → 2023-03-21 23:45 | Outpatient (CLI) | payer MEDICARE, SELFPAY ==
[2023-03-21 19:49] LABS: Basophils # 0.1 K/mm3 (0-0.2); Basophils % 0.7 % (0.1-2.0); Eosinophils # 0.2 K/mm3 (0.0-0.4); Eosinophils % 1.9 % (0.1-12.0); Hematocrit 43.9 % (42.0-52.0); Hemoglobin 14.6 g/dL (14.1-18.0); Lymphocytes # 3.5 K/mm3 (0.7-4.5); Mean Corpuscular HGB Conc 33.2 g/dL (31.8-35.4); Mean Corpuscular Hemoglobin 28.8 pg (27.0-31.2); Mean Corpuscular Volume 86.7 fl (80-94); Mean Platelet Volume 8.9 fl (7.4-10.4); Monocytes # 0.7 K/mm3 (0.1-1.0); Monocytes % 6.3 % (1.7-9.3); Neutrophils # 6.4 K/mm3 (1.8-7.8); Neutrophils % 59.1 % (37.0-80.0); Platelet Count 289 K/mm3 (142-424); Red Blood Count 5.06 M/mm3 (4.60-6.20); Red Cell Distribution Width 13.5 % (11.5-17.5); White Blood Count 10.8 K/mm3 (4.8-10.8)
[2023-03-21 20:08] LABS: Alanine Aminotransferase 35 U/L (12-78); Albumin Level 3.9 g/dl (3.5-5.0); Albumin/Globulin Ratio 1.1 (1.1-1.8); Alkaline Phosphatase 123 U/L (38-126); Aspartate Amino Transferase 32 U/L (17-59); Bilirubin,Total 0.2 mg/dl (0.2-1.3); Blood Urea Nitrogen 17 mg/dl (9-20); Calcium 9.1 mg/dl (8.4-10.2); Carbon Dioxide 26 mmol/L (22.0-30.0); Chloride 104 mmol/L (98-107); Chol/HDL Ratio 7.2 (1-3.5); Cholesterol 172 mg/dl (140-200); Estimated Glomerular Filt Rate 74 ml/min (>60); GFR (African American) 89 ML/MIN (>60); Globulin 3.6 g/dL (1.3-3.2); Glucose 102 mg/dl (74-100); HDL Cholesterol 24 mg/dl (40-60); Sodium 143 mmol/L (136-145); Total Protein,Serum 7.5 g/dl (6.3-8.2); Triglycerides 184 mg/dl (30-150); VLDL Cholesterol 37 mg/dL (0-40)
[2023-03-21 20:20] LABS: Direct LDL Cholesterol 119.22 mg/dL (100-129)
[2023-03-21 20:26] LABS: Hemoglobin A1C 8.1 % (4.0-6.0)
== END ==
PROVIDERS: PCP Family Medicine; Visit Provider Family Medicine
DX: E11.9 Type 2 diabetes mellitus without complications (principal); Z96.653 Presence of artificial knee joint, bilateral; Z79.4 Long term (current) use of insulin
CPT/HCPCS: 80053; 80061; 83036; 85025

== ENCOUNTER 2023-09-17 15:18 | Outpatient (CLI) | payer MEDICARE, SELFPAY ==
[2023-09-17 18:35] LABS: Basophils # 0.1 K/mm3 (0-0.2); Basophils % 0.5 % (0.1-2.0); Eosinophils # 0.2 K/mm3 (0.0-0.4); Eosinophils % 1.4 % (0.1-12.0); Hematocrit 41.7 % (42.0-52.0); Lymphocytes % 29.3 % (10-50); Mean Corpuscular HGB Conc 33.6 g/dL (31.8-35.4); Mean Corpuscular Hemoglobin 30.5 pg (27.0-31.2); Mean Corpuscular Volume 90.7 fl (80-94); Mean Platelet Volume 8.5 fl (7.4-10.4); Monocytes # 0.7 K/mm3 (0.1-1.0); Monocytes % 6.9 % (1.7-9.3); Neutrophils # 6.5 K/mm3 (1.8-7.8); Platelet Count 340 K/mm3 (142-424); Red Cell Distribution Width 13.6 % (11.5-17.5); White Blood Count 10.4 K/mm3 (4.8-10.8)
[2023-09-17 19:09] LABS: Alanine Aminotransferase 30 U/L (12-78); Albumin Level 3.6 g/dl (3.5-5.0); Albumin/Globulin Ratio 1.1 (1.1-1.8); Alkaline Phosphatase 103 U/L (38-126); Anion Gap 8.5 mEq/L (5-15); Aspartate Amino Transferase 30 U/L (17-59); Bilirubin,Total 0.3 mg/dl (0.2-1.3); Blood Urea Nitrogen 12 mg/dl (9-20); Calcium 9.1 mg/dl (8.4-10.2); Carbon Dioxide 26 mmol/L (22.0-30.0); Chloride 109 mmol/L (98-107); Estimated Glomerular Filt Rate 83 ml/min (>60); GFR (African American) 101 ML/MIN (>60); Globulin 3.2 g/dL (1.3-3.2); Glucose 91 mg/dl (74-100); Potassium 4.5 mmoL/L (3.5-5.1); Sodium 139 mmol/L (136-145); Total Protein,Serum 6.8 g/dl (6.3-8.2)
[2023-09-17 19:39] LABS: Thyroid Stimulating Hormone 1.67 uIU/mL (0.465-4.68)
[2023-09-17 21:26] LABS: Hemoglobin A1C 6.1 % (4.0-6.0)
== END 2023-09-17 23:59 ==
LOC: LAB.DROPOF 09-18 15:18
PROVIDERS: PCP Family Medicine; Visit Provider Family Medicine
DX: N39.0 Urinary tract infection, site not specified (principal); I10 Essential (primary) hypertension; E11.9 Type 2 diabetes mellitus without complications; B96.4 Proteus (mirabilis) (morganii) as the cause of diseases classified elsewhere; Z79.4 Long term (current) use of insulin; Z79.899 Other long term (current) drug therapy
CPT/HCPCS: 80053; 83036; 84443; 85025; 87086

== ENCOUNTER 2023-11-26 09:54 | Outpatient (CLI) | payer MEDICARE, SELFPAY ==
[2023-11-26 19:25] LABS: Hemoglobin A1C 6.5 % (4.0-6.0)
[2023-11-26 19:48] LABS: Alanine Aminotransferase 74 U/L (12-78); Albumin Level 3.6 g/dl (3.5-5.0); Albumin/Globulin Ratio 1.2 (1.1-1.8); Alkaline Phosphatase 169 U/L (38-126); Anion Gap 13.2 mEq/L (5-15); Aspartate Amino Transferase 78 U/L (17-59); Bilirubin,Total 0.4 mg/dl (0.2-1.3); Blood Urea Nitrogen 13 mg/dl (9-20); Calcium 8.5 mg/dl (8.4-10.2); Carbon Dioxide 23 mmol/L (22.0-30.0); Chloride 107 mmol/L (98-107); Estimated Glomerular Filt Rate 95 ml/min (>60); GFR (African American) 115 ML/MIN (>60); Globulin 3.1 g/dL (1.3-3.2); Glucose 231 mg/dl (74-100); Potassium 4.2 mmoL/L (3.5-5.1); Sodium 139 mmol/L (136-145); Total Protein,Serum 6.7 g/dl (6.3-8.2)
== END 2023-11-26 23:59 | disposition home or self-care (01) ==
LOC: LAB.DROPOF 11-28 09:54
PROVIDERS: PCP Family Medicine; Visit Provider Family Medicine
DX: E11.9 Type 2 diabetes mellitus without complications (principal); I10 Essential (primary) hypertension; Z79.4 Long term (current) use of insulin
CPT/HCPCS: 80053; 83036

== ENCOUNTER 2024-02-14 15:00 | Outpatient (RCR) | payer MEDICARE, SELFPAY ==
--- NOTE | 2023-09-25 15:49 | HMH.PTOPEV ---
PT Outpatient Evaluation Rehab PT Outpatient Evaluation Start: 09/25/23 14:50 Freq: Status: Active Protocol: Document 09/25/23 15:32 KATE (Rec: 09/25/23 15:49 KATE [id number]) E-signed By Socrates Plaza, PT Outpatient Therapy Subjective History Subjective History Pt reports h/o chronic gait deficit secondary to generalized weakness. Pt reports h/o falls d/t aforementioned weakness and deconditioning d/t 'breathing issues.' Pt reports B/L TKA ~3 -4 yrs ago, 'and since I've had some falls I get scared to get up and move around on my own.' Pt also reports h/o chronic LBP. New diagnosis of cancer in past 12 No months? Chief Complaint Pain,Stiff,Weakness Symptom Type Ache,Dull Symptoms Relieved By Rest/Positioning Symptoms Aggravated By Standing,Walking Prior Functional Limitations Housework,Standing,Squatting, Walking Current Functional Limitations Housework,Standing,Squatting, Walking Symptom Description Constant but Variable Level of pain today (0-10) 7 Pain scale - at its best (0-10) 7 Pain scale - at its worst (0-10) 7 Hip/Knee Eval Gait Observation General Gait Pattern Observation Wide Based Gait Assistive Device Assistive Devices Rolling / Wheeled Walker MMT bilateral Hip Flexion Strength Grade 4 Good Hip Abduction Strength Grade 4 Good Hip Adduction Strength Grade 5 Normal Hip Extension Strength Grade 4 Good Hip External Rotation Strength Grade 4- Good- Hip Internal Rotation Strength Grade 4- Good- Knee Extension Strength Grade 5 Normal Knee Flexion Strength Grade 4 Good Ankle/Foot Eval MMT Ankle Dorsiflexion Strength Grade 4 Good Tinetti Sitting Balance Sitting Balance Steady, safe Arising from Chair Ability to Arise Able, uses arms to help Attempts to Arise Arises on 1st attempt Standing Balance Immediate Standing Balance Steady with support Standing Balance Steady, wide stance Nudged Response Staggers, catches self Standing with Eyes Closed Unsteady Turning Step Pattern Turning 360 Degrees Discontinuous steps Stability Turning 360 Degrees Unsteady, grabs/staggers Sitting Down Sitting Down Uses arms or unsteady Gait and Step Initiation of Gait No hesitancy Right Foot Step Length Does pass stance foot Right Foot Step Height Completely clears floor Left Foot Step Length Does pass stance foot Left Foot Step Height Completely clears floor Step Description Step Symmetry Step length appears equal Step Continuity Steps appear continuous Gait Description Path Description Straight Trunk Description No sway Walking Stance Heels apart Scoring and Interpretation Tinetti Composite Score (points) 19 Outpatient Therapy Assessment Impairments Problems/Impairmments Impaired Strength,Impaired Gait Pattern,Impaired Walking, Impaired Standing,Impaired Household Care,Impaired Stair Climbing,Impaired Squatting, Impaired Tinnetti Score, Subjective C/O Pain,Impaired Self Care/Self Management Prognosis Rehab Potential Good Clinical Impression Consistent with Diagnosis Yes Short Term Goals Number of Weeks 4 Increase Strength Yes: 4-4+/5 B/L LE MM Improve Gait Pattern with Assistive Yes: WFL ON LEVEL TERRAIN W/RW Device Increase Ability to Walk Yes: 10MIN Increase Ability to Stand Yes: 10MIN Improve Incline Stepping Ability Yes: 10MIN Increase Tinnetti Score Yes: 22-24 Decrease Subjective C/O Pain Yes: 5/10 W/ABOVE ACTIVITIES Patient to be Ind w/ HEP Yes Mathematics Improvement Teacher Goals Number of Weeks 10-12 Increase Strength Yes: 5/5 B/L LE'S Improve Gait Pattern without Assistive Yes: WFL ON LEVEL TERRAIN Device Increase Ability to Walk Yes: 15MIN Increase Ability to Stand Yes: 15MIN Improve Ability For Household Care Yes: 15MIN Improve Ability to Squat Yes: WFL 75% OF FULL DEPTH Increase Tinnetti Score Yes: >24 Decrease Subjective C/O Pain Yes: 3-4/10 W/ABOVE ACTIVITIES Patient to be Ind w/ Advanced HEP Yes Outpatient Therapy Plan of Care Treatment Plan May Include Therapeutic Exercise Including Home Yes Exercise Program Manual Therapy Techniques Yes Neuromuscular Re-education Yes Therapeutic Activities to Return to Yes Previous Functional/Work Level Gait Training Yes ADL/Self Care Education Yes Thermal Modalities Yes Electrical Stimulation Yes Ultrasound/Phonophoresis Yes Orthotics/Bracing/Splinting Yes Eval/Re-Eval Yes Aquatic Therapy Yes Frequency Times per week 2-3 Duration Number of Weeks 10-12 Addendums This patient is a candidate for social No or vocational rehab? Patient/Guardian verbally acknowledges Yes understanding of treatment program and consents to further treatment? Patient/Guardian verbally acknowledges Yes understanding of diagnosis, prognosis and goals for treatment? Eval Complexity PT Charges 96557 - Moderate Complexity Shoulder/Elbow Eval Shoulder Objective Measurements Elbow Objective Measurements PHYSICIAN CERTIFICATION: I certify the specified therapy services for Bry Moranz are required, authorized, and reviewed every 30 days.
--- NOTE | 2023-10-30 15:50 | HMH.RHREAS ---
Rehab Reassessment Rehab OP Re-assessment Start: 09/25/23 14:50 Freq: Status: Active Protocol: Document 10/30/23 15:34 [email or web address] (Rec: 10/30/23 15:47 KATE [id number]) E-signed By Socrates Plaza, PT Tinetti Sitting Balance Sitting Balance Steady, safe Arising from Chair Ability to Arise Able, uses arms to help Attempts to Arise Able, requires >1 attempt Standing Balance Immediate Standing Balance Steady with support Standing Balance Steady, wide stance Nudged Response Steady Standing with Eyes Closed Unsteady Turning Step Pattern Turning 360 Degrees Continuous steps Stability Turning 360 Degrees Steady Sitting Down Sitting Down Uses arms or unsteady Gait and Step Initiation of Gait No hesitancy Right Foot Step Length Does pass stance foot Right Foot Step Height Completely clears floor Left Foot Step Length Does pass stance foot Left Foot Step Height Completely clears floor Step Description Step Symmetry Step length appears equal Step Continuity Steps appear continuous Gait Description Path Description Straight Trunk Description No sway Walking Stance Heels apart Scoring and Interpretation Tinetti Composite Score (points) 21 Rehab Re-assessment Subjective Subjective Pt reports no significant changes overall endurance, but notes 'I've not made it to all my appointments though.' Pt reports no pain this pm, and feels some stronger over all since I eval. Objective Objective Notes MMT: R HIP FLX 4/5, L HIP FLX 4-4+/5, R KNEE EXT 5/5, L KNEE EXT 5/5, R KNEE FLX 4-4+/5, L KNEE FLX 4/5, R DF 5/5, L DF 4/5, R HIP IR 4/5, L HIP IR 4/ 5, R HIP ER 4--4/5, L HIP ER 4 -/5 TINETTI 21 VS 19 ON I EVAL AMBULATION/STANDING ENDURANCE ~5 MINUTES Assessment Progress Assessment Slower Than Expected Assessment Notes SLIGHT IMPROVEMENTS IN STRENGTH, MARKED IMPROVEMENT IN PAIN Patient goals met STG'S 08/30 LTG'S 07/31 Goals Not Met STG'S 12/28, LTG'S 02/28 Plan Plan Pt to continue w/skilled P.T. (with the addition of aquatic therapy to help facilitate more significant gains in balance and endurance) to make further improvements in strength, balance, and endurance to allow for optimal function Frequency of Therapy 2-3x/wk Duration of therapy 10-12wks Time and Billing Re-Eval Time 12 Re-Eval Billing Units 0 PHYSICIAN CERTIFICATION: I certify the specified therapy services for Bry Clark are required, authorized, and reviewed every 30 days.
--- NOTE | 2023-12-06 15:21 | HMH.RHREAS ---
Rehab Reassessment Rehab OP Re-assessment Start: 09/25/23 14:50 Freq: Status: Active Protocol: Document 12/06/23 14:57 KATE (Rec: 12/06/23 15:21 KATE [id number]) E-signed By Socrates Plaza, PT Tinetti Sitting Balance Sitting Balance Steady, safe Arising from Chair Ability to Arise Able, uses arms to help Attempts to Arise Arises on 1st attempt Standing Balance Immediate Standing Balance Steady w/o support Standing Balance Steady, wide stance Nudged Response Staggers, catches self Standing with Eyes Closed Unsteady Turning Step Pattern Turning 360 Degrees Continuous steps Stability Turning 360 Degrees Steady Sitting Down Sitting Down Uses arms or unsteady Gait and Step Initiation of Gait No hesitancy Right Foot Step Length Does pass stance foot Right Foot Step Height Completely clears floor Left Foot Step Length Does pass stance foot Left Foot Step Height Completely clears floor Step Description Step Symmetry Step length appears equal Step Continuity Steps appear continuous Gait Description Path Description Straight Trunk Description No sway Walking Stance Heels apart Scoring and Interpretation Tinetti Composite Score (points) 22 Interpretation of Scores At risk for falls (19-24) Rehab Re-assessment Subjective Subjective Pt reports no pain in LE's or back this pm, reports 'blood sugar seems okay to day', and reports 'I think I'm about 40% better overall' since I eval related to strength, endurance , and functional abilities Objective Objective Notes MMT: R HIP FLX 4/5, L HIP FLX 4-4+/5, R KNEE EXT 5/5, L KNEE EXT 5/5, R KNEE FLX 4+/5, L KNEE FLX 4+/5, R DF 5/5, L DF 4/5, R HIP IR 4+/5, L HIP IR 4 /5, R HIP ER 4--4/5, L HIP ER 4/5 TINETTI 22 VS 19 ON I EVAL AMBULATION/STANDING ENDURANCE ~5 MINUTES Assessment Progress Assessment Slower Than Expected Assessment Notes Pt exhibits some slight improvements in strength, balance, and plateaued endurance w/standing/walking, however, pt has been educated to monitor blood sugar more critically so that he can perform more optimally during his skilled P.T. visits, and to try and comply w/POC freq. for P.T. appts as well. Patient goals met STG'S 11/27 LTG'S 07/31 Goals Not Met STG'S 09/27, LTG'S 02/28 Plan Plan Pt to continue w/skilled P.T. (with the continuation of aquatic therapy to help facilitate more significant gains in balance and endurance ) to make further improvements in strength, balance, and endurance to allow for optimal function Frequency of Therapy 2X/WK Duration of therapy 6-8WKS Time and Billing Re-Eval Time 12 Re-Eval Billing Units 0 PHYSICIAN CERTIFICATION: I certify the specified therapy services for Bry Clark are required, authorized, and reviewed every 30 days.
== END 2024-02-14 23:59 | disposition home or self-care (01) ==
LOC: PT 15:00
PROVIDERS: Visit Provider Family Medicine
DX: M62.81 Muscle weakness (generalized) (principal); R26.9 Unspecified abnormalities of gait and mobility
CPT/HCPCS: 97110; 97113; 97116; 97163; 97164; 97530; 97535

== ENCOUNTER 2024-04-14 13:52 | Outpatient (CLI) | payer MEDICARE, SELFPAY | END 2024-04-14 23:59 | disposition home or self-care (01) | LOC: LAB.DROPOF 04-15 10:16 | PROVIDERS: PCP Family Medicine; Visit Provider Family Medicine | DX: N39.0 Urinary tract infection, site not specified (principal); E11.9 Type 2 diabetes mellitus without complications | CPT/HCPCS: 87086 ==

== ENCOUNTER 2024-07-09 14:18 | Outpatient (CLI) | payer MEDICARE, SELFPAY | END 2024-07-09 23:59 | disposition home or self-care (01) | LOC: LAB.DROPOF 07-10 12:04 | PROVIDERS: PCP Family Medicine; Visit Provider Family Medicine | DX: R82.90 Unspecified abnormal findings in urine (principal) | CPT/HCPCS: 87086 ==

== ENCOUNTER 2025-01-30 10:57 | Outpatient (CLI) | payer MEDICARE, SELFPAY ==
[2025-01-30 18:37] LABS: Hematocrit 37.0 % (42.0-52.0); Hemoglobin 12.5 g/dL (14.1-18.0); Immature Granulocytes % 0.3 %; Mean Corpuscular HGB Conc 33.8 g/dL (31.8-35.4); Mean Corpuscular Hemoglobin 30.5 pg (27.0-31.2); Mean Corpuscular Volume 90.2 fl (80-94); Nucleated Red Blood Cells % 0 %; Platelet Count 224 K/mm3 (142-424); Red Blood Count 4.10 M/mm3 (4.60-6.20); Red Cell Distribution Width-SD 43.8 fL; White Blood Count 9.5 K/mm3 (4.8-10.8)
[2025-01-30 19:15] LABS: Alanine Aminotransferase 27 U/L (12-78); Albumin Level 3.5 g/dl (3.5-5.0); Albumin/Globulin Ratio 1.0 (1.1-1.8); Alkaline Phosphatase 123 U/L (38-126); Anion Gap 17.0 mEq/L (5-15); Aspartate Amino Transferase 44 U/L (17-59); Bilirubin,Total 0.5 mg/dl (0.2-1.3); Blood Urea Nitrogen 8 mg/dl (9-20); Calcium 8.2 mg/dl (8.4-10.2); Carbon Dioxide 23 mmol/L (22.0-30.0); Chloride 104 mmol/L (98-107); Cholesterol 97 mg/dl (140-200); Creatinine,Serum 0.70 mg/dl (0.66-1.25); Estimated Glomerular Filt Rate 111 ml/min (>60); GFR (African American) 134 ML/MIN (>60); Globulin 3.4 g/dL (1.3-3.2); Glucose 190 mg/dl (74-100); HDL Cholesterol 20 mg/dl (40-60); Potassium 4.0 mmoL/L (3.5-5.1); Sodium 140 mmol/L (136-145); Total Protein,Serum 6.9 g/dl (6.3-8.2); Triglycerides 98 mg/dl (30-150)
[2025-01-30 20:03] LABS: Hepatitis C Ab Qual. W/ RFX NEGATIVE (Negative)
--- OUTSIDE RECORDS SUMMARY | 2025-02-02 11:02 | XMS_ITS | Data Portability ---
Author Organization [facility] Address [address] [place] [address] Assessment Encounter Date Assessment Date Assessment LastModified by Organization Details LastModified Time 06/17/2018 06/17/2018 SURGERY DATE: 06/17/2018 PREOPERATIVE DIAGNOSIS: Urinary slowing. POSTOPERATIVE DIAGNOSIS: Recurrent bulbar urethral stricture. PROCEDURE: Cystoscopy with dilation of bulbar urethral stricture. ANESTHESIA: General. COMPLICATIONS: None. CONDITION: Stable. SURGEON: Justin Roger MD INDICATIONS: This is a 67-year-old white male with history of the urethral stricture. Last time he was dilated was 2-1/2 years ago. He returns with complaints of urinary slowing, dribbling stream, and straining to void. OPERATIVE NOTE: The patient was taken to the operating room after informed consent was obtained. He was placed on the operating room table in the supine position and general anesthesia administered. Preoperative antibiotics and sequential compression devices placed. He was then placed into the dorsal lithotomy position and prepped and draped in the standard surgical fashion. The 21-Ghanaian cystoscope passed into the urethra. There was noted be a tight bulbar urethral stricture. A guidewire was passed through the stricture into the bladder and the scope removed. The stricture was then dilated with Sarina dilators from 10 to 24 Ghanaian. The initial 10 Ghanaian dilator did pass with tight pop and the subsequent dilators were easier. After passing the 24 Ghanaian Sarina, a 22-Ghanaian catheter passed into the urethra and into the bladder without difficulty and the urine was obtained and 10 mL placed in the balloon. The patient tolerated it well and discharged to the recovery room in stable condition. [email or web address] Not available 06/17/2018 18:51:33 Plan of Treatment Reminders Order Date Submit Date Provider Last Modified By Organization Details Last Modified Time Details Appointments None record ed. Lab None record ed. Referral None record ed. Procedures None record ed. Surgeries None record ed. Imaging None record ed. Medication Orders None record ed. Patient TargetsNo targets recorded. Patient InstructionsNo instructions recorded. Reason for Referral None Reported. Procedures Surgical History Date Name Laterality Status Provider Name and Address Organization Details Recorded Time total knee replacement completed Alana David [facility] 06/17/2018 09:53:46 Imaging Results None recorded. Procedure Notes None recorded. Medical Equipment None Reported. Allergies No known drug allergies Medications Name Sig Start Date Stop Date Status Note LastModified by Organization Details LastModified Time cyclobenzapr ine 10 mg tablet Take 1 tablet 3 times a day by oral route. active Not Available Not Available No t Available atorvastatin 40 mg tablet Take 1 tablet every day by oral route. active Not Available Not Available No t Available metoprolol succinate ER 50 mg tablet,exten ded release 24 hr Take 1 tablet every day by oral route. active Not Available Not Available No t Available lisinopril 20 mg tablet Take 1 tablet every day by oral route. active Not Available Not Available No t Available bisoprolol fumarate 10 mg tablet Take 1 tablet every day by oral route. active Not Available Not Available No t Available Percocet 5 mg-325 mg tablet Take 1 tablet every 6 hours by oral route. active Not Available Not Available Not Available Humulin 70/30 U-100 Insulin KwikPen 100 unit/mL subcutaneous Inject by subcutaneou s route. active Not Available Not Available No t Available Humalog Jason KwikPen (U-100) 100 unit/mL subcutaneous half-unit pen Inject by subcutaneou s route. active Not Available Not Available No t Available Vitals Date Recorded Body height Body mass index (BMI) Body weight Provider Name and Address Organization Details Last Updated DateTime 06/17/2018 190.5 cm 42.5 kg/m2 179488.41 g Alana David [facility] 06/17/2018 09:51:16 Social History Question Answer Notes LastModified by Organizat ion Details LastModified Time Tobacco Smoking Status Never Smoker Alana coon [facility] 06/17/2018 09:53:28 Marital Status Single Informatio n not available 06/17/2018 What Was The Date Of Your Most Recent Tobacco Screening? 06/17/2018 Information n ot available 09/09/2019 How Much Tobacco Do You Smoke? No Information not available 06/17/2018 Sex: Unknown Functional Status Question Answer Note LastModified by Organization D etails LastModified Time What is your level of alcohol consumption? None Information not available 06/17/2018 What is your occupation? Retired Information not available 06/17/2018 Mental Status None recorded. Family History Relationship Description Onset Age of this Age Resolved Age Notes LastModified by Organization Details LastModified Time Unspecified Relation Diabetes mellitus Not available 2017 09:53:23 Medical History Condition Response Diabetes Y Hypertension Y Past Encounters Encounter ID Performer Location Encounter Start Date Encounter Closed Date Diagnosis/Indication Diagnosis SNOMED-CT Code Diagnosis ICD10 Code Diagnosis Note [id number] JUSTIN ROGER MD [address] [place] [address] 06/17/2018 09:17:35 06/17/2018 11:26:36 Urethral stricture 13982821 N35.92 Pt with recurrent urinary slowing. He has not followed up as instructed . Will try and set him up for cysto and dilation today under anesthesia . [id number] JUSTIN ROGER MD SURGERY SCHEDULE [address] [place] [address] 06/17/2018 11:54:16 06/17/2018 11:56:55 Health Concerns Section Related Observation LastModified by Organization Detai ls LastModified Time None Recorded Concern Status LastModified by Organization Details LastModified Time None Recorded Advance Directives Directive None Recorded Payers Insurance Date Sequence Insurance Name Policy Number Policy Melendez Covered Member ID Melendez Member ID Guarantor Name 06/16/2020 2 [employer] (MEDICARE SUPPLEMENT) Bry Nutz [id number] Bry D Nutz 06/16/2020 1 [place] Bry D Nutz [id number] Bry D Nutz 07/31/2018 [facility] (OR) Bry D Nutz [id number] Bry D Nutz 06/16/2020 1 [place] [id number] Bry Clark [id number] Bry Clark 06/10/2018 1 [place] [employer] - [employer] X (HMO) [id number] Bry Clark [id number] Bry Clark Notes Date Note Type Note Provider Name and Address Organization Details Recorded Time 06/17/2018 text/html 67 yo male retur ns after a 2 yr absence due to difficulty urinating. He has a longstanding h/o a urethral stricture that requires interval dilations. He was last seen in January 2016 and underwent Cystoscopy with dilation and required a FC for a short period. He states that his having to push and strain to urinate. He denies burning with urination. No recent gross hematuria. He is currently in a rehab facility following a Right Knee Replacement but has refused FC placement by facility. JUSTIN ROGER MD [address] [place] [address], [phone], [facility] 06/17/2018 10:48:44
== END 2025-01-30 23:59 | disposition home or self-care (01) ==
LOC: LAB.DROPOF 02-02 11:00
PROVIDERS: PCP Family Medicine; Visit Provider Family Medicine
DX: E11.9 Type 2 diabetes mellitus without complications (principal); I10 Essential (primary) hypertension; Z11.59 Encounter for screening for other viral diseases; Z12.5 Encounter for screening for malignant neoplasm of prostate
CPT/HCPCS: 80053; 80061; 80074; 82043; 82570; 85025; 87389; G0103